=== PATIENT | male | born 1990 | race Hispanic/Latino ===

== ENCOUNTER 2018-04-16 23:24 | Emergency (ER) | payer OTHER, MEDICAID, SELFPAY ==
[2018-04-16 23:25] VITALS: BP 143/84; PULSE 72; RESP 14; TEMP 37.2; O2SAT 100; BMI 29.0
[2018-04-17 00:17] LABS: Bacteria 0 SEEN /hpf (None Seen); Red Blood Cells-Urine 0 SEEN /hpf (0-5); White Blood Cells 0 SEEN /hpf (0-5)
--- NOTE | 2018-04-17 00:21 | CT_ITS ---
STUDY: CT ABDOMEN AND PELVIS WITHOUT CONTRAST REASON FOR EXAM: Male, 27 years old. Abdominal pain. RADIATION DOSAGE (If Supplied By Facility): CTDIvol = ( 8.75 ) mGy, DLP = ( 469.93 ) mGycm TECHNIQUE: Transaxial images were obtained from the dome of the diaphragm to the symphysis pubis without oral contrast, and without intravenous contrast. Sagittal and coronal images were reconstructed. Individualized dose optimization techniques were used for this CT. COMPARISON: None. FINDINGS: The visualized lung bases are unremarkable. The visualized portions of the heart are within normal limits. Normal liver. Normal gallbladder and extrahepatic biliary system. Normal spleen. Normal pancreas. Normal bilateral adrenal glands. Normal right kidney. Normal left kidney. Normal visualized stomach. Normal small intestine. There is fecal retention. There is mild diverticulosis of the sigmoid colon. There is focal stranding and thickening of the sigmoid colon consistent with mild diverticulitis or colitis. There is no evidence of drainable abscess. There is non-visualization of the appendix. Normal abdominal aorta. Normal inferior vena cava. Normal retroperitoneum. Normal urinary bladder. Normal abdominal wall. Normal osseous structures. CT/Abdomen/Pelvis without Cont IMPRESSION: Small focal area of thickening and mild stranding in the sigmoid colon consistent with mild acute diverticulitis or colitis. No drainable abscess is seen. Otherwise no demonstrated acute process. The appendix is not definitely identified. Electronically Signed: Scar Swanson MD at 1:03 EDT Tel , Service support ,
[2018-04-17] MEDS: Morphine 4 MG/ML Syringe IV (00:27)
[2018-04-17] MEDS: 0.9% Normal Saline 1,000 ML 1000 ML IV (00:27)
[2018-04-17] MEDS: Ondansetron 4 MG/2 ML Vial IV (00:28)
[2018-04-17 00:29] LABS: Absolute Lymphocyte Count 0.92 X10^3/ul (0.83-4.51); Absolute Neutrophil Count 13.8 X10^3/uL (2.0-7.7); Basophil# 0.02 X10^3/uL; Basophil% 0.1 % (0-1); Eosinophil# 0.03 X10^3/uL; Eosinophils% 0.2 % (0-5); Hematocrit 42.9 % (40-54); Hemoglobin 14.8 g/dl (13.0-16.5); Lymphocyte # 0.92 X10^3/ul (4.0); Lymphocyte % 5.8 % (19-41); Mean Corp Hgb Conc 34.5 g/gl (32-36); Mean Corpuscular Hgb 28.8 pg (27.0-32.0); Mean Corpuscular Volume 83.5 fL (80-94); Mean Platelet Vol. 10.2 fl (6.2-12.0); Monocyte# 0.94 X10^3/uL; Neutrophil # 13.81 X10^3/uL (2.7-7.7); Neutrophil % 87.7 % (47-70); Platelet Count 282 K/mm3 (150-450); RBC Distribution Width CV 13.2 % (11.6-14.6); RBC Distribution Width SD 40.1 fl (35.1-43.9); Red Blood Count 5.14 M/mm3 (4.6-6.2); White Blood Count 15.8 K/mm3 (4.4-11.0)
[2018-04-17 00:34] LABS: POSITIVE COUNT NO; POSITIVE DIFFERENTIAL NO; POSITIVE MORPHOLOGY NO
[2018-04-17 00:40] LABS: Color, Urine Yellow (Yellow); Mucous, Urine 3+ /hpf (<or=2+); Squamous Epithelial Cells - UA 0-5 SEEN /hpf (0-5); Urine Clarity Clear (Clear)
[2018-04-17 00:41] LABS: Glucose, Dipstick NEGATIVE (Normal); Ketone-Dipstick 5 mg/dl (Negative); Leukocyte Esterase-Dipstick 25 /ul (Negative); Nitrite-Dipstick Negative (Negative); Occult Blood-Urine Negative /ul (Negative); Protein-Dipstick 15 mg/dl (Negative); Specific Gravity, Urine 1.015 (1.002-1.030); Urine Bilirubin Dipstick Negative (Negative); Urine Urobilinogen Normal (Normal)
[2018-04-17 01:03] LABS: AST(SGOT) 25 U/L (15-37); Alanine Aminotransfer ALT/SGPT 49 U/L (16-61); Albumin, Serum 4.3 g/dL (3.2-5.0); Alkaline Phosphatase 92 U/L (45-117); Anion Gap 5 (5-15); BUN 15 mg/dL (7-18); BUN/Creat Ratio 13.8 RATIO (10-20); Calcium,Total 9.4 mg/dL (8.5-10.1); Chloride 102 mmol/L (98-107); Creatinine, Serum 1.09 mg/dL (0.70-1.30); EST Glomerular Filtration Rate 86 mL/min (>60); Est Glom Filt Rate - Afr Amer 105 mL/min (>60); Globulin 4.1 g/dL (2.2-4.2); Glucose 108 mg/dL (74-106); Lipase 91 U/L (73-393); Potassium 4.1 mmol/L (3.5-5.1); Protein, Total 8.4 g/dL (6.4-8.2); Sodium Level 136 mmol/L (136-145)
--- NOTE | 2018-04-17 01:36 | ED.DCSUM_ITS ---
- ER Visit Summary Date of Service: 04/17/18 Chief Complaint: Abdominal pain History of Present Illness: The patient is a 27 M who presents with abdominal pain. It is been present for about 5 hours. He describes it as a stabbing lower abdominal pain he also has some pain radiating through to his back. Currently he rates this as 8 out of 10. He has had about 3 episodes of nonbloody nonbilious emesis. He reports urinary urgency. He notes that the pain radiates into his genitals. He does have a history of prior similar symptoms about 1 year ago and was diagnosed with colitis and improved with antibiotics. No fevers. No diarrhea. Physical Examination: Afebrile vitals are essentially normal Moist mucous membranes Heart regular rate and rhythm Lungs are clear Abdomen soft nondistended he has bilateral lower abdominal tenderness without guarding without rebound Test Results: CBC notable for white blood cell count 15.8. BMP normal. Hepatic function lipase normal. UA notable for [address] leukocyte [address] otherwise normal. CT the abdomen and pelvis shows wall thickening of the sigmoid colon consistent with diverticulitis or colitis. Emergency Department Course and Treatment: She was treated with IV fluids morphine Zofran here. On reevaluation he is resting comfortably. Given that this is a similar episode one year ago I suspect the patient has underlying diverticulosis with diverticulitis. He was advised that after treatment he will likely need a colonoscopy for further evaluation. He does note that he has had an EGD in [place] but never had a lower endoscopy. He is resting comfortably on reevaluation. I do believe he is a good candidate for outpatient treatment. He has had no vomiting here and his pain is controlled. He will be discharged with Cipro and Flagyl. He was asked if he would need any analgesics at home and he states he will just take Tylenol for pain. He does have an appointment next month to establish a primary care physician with the [facility]. He was advised to keep the scheduled follow-up. He understands to return for new or worsening symptoms. He is agreeable to plan was discharged home in good condition. Treatment Plan: [] Disposition: Discharge Impression: Sigmoid diverticulitis This note was generated with [employer] dictation software. It may contain incorrect words, spelling, and punctuation that were not noted in review of the chart prior to signing ED Disposition - Plan for ED Patient: Chief Complaint: Abd Pain Referrals: Care Physician,No Primary [Primary Care Provider] -
--- NOTE | 2018-04-17 01:39 | ED.DEP ---
ED Disposition - Plan for ED Patient: Chief Complaint: Abd Pain Instructions: ED Diverticulitis Prescriptions: Metronidazole [Flagyl] 500 mg PO Q8H #21 tab Ciprofloxacin [Cipro] 500 mg PO BID #14 tab Referrals: Care Physician,No Primary [Primary Care Provider] -
[2018-04-17 01:50] VITALS: BP 140/83; PULSE 95; RESP 18; O2SAT 98
== END 2018-04-17 01:52 | disposition home or self-care (01) ==
LOC: ED 04-17 00:36
PROVIDERS: Emergency Provider Emergency Medicine
DX: K57.32 Diverticulitis of large intestine without perforation or abscess without bleeding (principal)
CPT/HCPCS: 74176; 80048; 80076; 81001; 83690; 85025; 96361; 96374; 96375; 99285; J7030; A4216; J2405

== ENCOUNTER 2018-09-17 10:48 | Emergency (ER) | payer OTHER, SELFPAY ==
[2018-09-17 10:52] VITALS: BP 143/76; PULSE 105; RESP 17; TEMP 37.1; O2SAT 98; BMI 27.6
--- NOTE | 2018-09-17 11:05 | CT_ITS ---
STUDY: CT ABDOMEN AND PELVIS WITH CONTRAST REASON FOR EXAM: Male, 28 years old. Abdominal pain. History of diverticulitis RADIATION DOSAGE (If Supplied By Facility): CTDIvol = ( 9.95 ) mGy, DLP = ( 727.07 ) mGycm TECHNIQUE: Transaxial images were obtained from the dome of the diaphragm to the symphysis pubis without oral contrast. 100CC ml of Isovue 300 contrast was administered. Sagittal and coronal images were reconstructed. Individualized dose optimization techniques were used for this CT. COMPARISON: 04/17/2018 FINDINGS: The visualized lung bases are unremarkable. The visualized portions of the heart are within normal limits. Normal liver. Normal gallbladder and extrahepatic biliary system. Normal spleen. Normal pancreas. Normal bilateral adrenal glands. Normal right kidney. Normal left kidney. Normal visualized stomach. Normal small intestine. Acute uncomplicated sigmoid diverticulitis with wall thickening and pericolonic fat stranding. The appendix is visualized and appears normal. Normal abdominal aorta. Normal inferior vena cava. Normal retroperitoneum. Normal urinary bladder. Normal visualized prostate gland. Normal abdominal wall. Normal osseous structures. CT/Abdomen/Pelvis W IV Cont ONLY IMPRESSION: Acute uncomplicated sigmoid diverticulitis Electronically Signed: Leonardo Olvera DO at 14:11 EST Tel , Service support ,
--- NOTE | 2018-09-17 11:08 | ED.DCSUM_ITS ---
- ER Visit Summary Date of Service: 09/17/18 Chief Complaint: Abdominal pain History of Present Illness: The patient is a 28 M with abdominal pain. Pain is in his left lower quadrant and does not radiate. He has had some diarrhea over the past 3-4 days. He had similar symptoms in the past with diverticulitis. He never had perforation, abscess, or surgery. Never had a colonoscopy but has one scheduled. Physical Examination: Afebrile and vital signs unremarkable. No acute distress. Alert and oriented. Heart regular. Lungs clear. Abdomen tender in the left lower quadrant. No guarding or rebound. Skin appears normal. Test Results: Labs, urine, CT pending. Emergency Department Course and Treatment: Patient declined pain medicine. He was treated with IV fluids while awaiting results. White count 11.5. Otherwise labs unremarkable. CT shows findings concerning for diverticulitis without any complication. Based on his exam, symptoms, findings, I believe he is appropriate for outpatient follow-up. He was treated with Cipro and Flagyl. Follow-up with his outpatient doctor. Treatment Plan: As above Disposition: Discharge Impression: Acute diverticulitis This note was generated with [employer] dictation software. It may contain incorrect words, spelling, and punctuation that were not noted in review of the chart prior to signing ED Disposition - Plan for ED Patient: Chief Complaint: Abd Pain Referrals: Abran Salas MD [Primary Care Provider] -
[2018-09-17] MEDS: 0.9% Normal Saline 1,000 ML 1000 ML IV (11:25)
[2018-09-17 11:28] VITALS: PULSE 105; RESP 17; TEMP 37.1; O2SAT 98
[2018-09-17 11:34] LABS: Absolute Lymphocyte Count 1.06 X10^3/ul (0.83-4.51); Absolute Neutrophil Count 9.2 X10^3/uL (2.0-7.7); Basophil# 0.02 X10^3/uL; Basophil% 0.2 % (0-1); Eosinophil# 0.06 X10^3/uL; Eosinophils% 0.5 % (0-5); Hematocrit 43.5 % (40-54); Hemoglobin 14.8 g/dl (13.0-16.5); Lymphocyte # 1.06 X10^3/ul (4.0); Lymphocyte % 9.2 % (19-41); Mean Corpuscular Hgb 28.2 pg (27.0-32.0); Mean Corpuscular Volume 82.9 fL (80-94); Mean Platelet Vol. 9.7 fl (6.2-12.0); Monocyte# 1.12 X10^3/uL; Monocyte% 9.7 % (0-10); Neutrophil # 9.22 X10^3/uL (2.7-7.7); Neutrophil % 80.1 % (47-70); Platelet Count 310 K/mm3 (150-450); RBC Distribution Width CV 13.1 % (11.6-14.6); RBC Distribution Width SD 39.4 fl (35.1-43.9); Red Blood Count 5.25 M/mm3 (4.6-6.2); White Blood Count 11.5 K/mm3 (4.4-11.0)
[2018-09-17 11:37] LABS: POSITIVE COUNT NO; POSITIVE DIFFERENTIAL NO; POSITIVE MORPHOLOGY NO
[2018-09-17 12:35] LABS: Bacteria 0 SEEN /hpf (None Seen); Mucous, Urine 0 SEEN /hpf (<or=2+); Red Blood Cells-Urine 0 SEEN /hpf (0-5); Squamous Epithelial Cells - UA 0 SEEN /hpf (0-5); White Blood Cells 0 SEEN /hpf (0-5)
[2018-09-17 12:38] LABS: Color, Urine Yellow (Yellow); Glucose, Dipstick Normal (Normal); Ketone-Dipstick Negative (Negative); Leukocyte Esterase-Dipstick Negative /ul (Negative); Nitrite-Dipstick Negative (Negative); Occult Blood-Urine Negative /ul (Negative); Protein-Dipstick Negative (Negative); Specific Gravity, Urine 1.015 (1.002-1.030); Urine Bilirubin Dipstick Negative (Negative); Urine Clarity Clear (Clear); Urine Urobilinogen Normal (Normal)
[2018-09-17 13:08] LABS: ALB/GLOB Ratio 0.8 RATIO (0.9-2.4); AST(SGOT) 26 U/L (15-37); Alanine Aminotransfer ALT/SGPT 38 U/L (16-61); Albumin, Serum 3.6 g/dL (3.2-5.0); Alkaline Phosphatase 111 U/L (45-117); Anion Gap 8 (5-15); BUN 10 mg/dL (7-18); Calcium,Total 8.9 mg/dL (8.5-10.1); Chloride 103 mmol/L (98-107); Creatinine, Serum 1.11 mg/dL (0.70-1.30); EST Glomerular Filtration Rate 84 mL/min (>60); Est Glom Filt Rate - Afr Amer 102 mL/min (>60); Estimated Creatinine Clearance 96.71 ml/min; Globulin 4.5 g/dL (2.2-4.2); Glucose 114 mg/dL (74-106); Lipase 159 U/L (73-393); Potassium 4.5 mmol/L (3.5-5.1); Protein, Total 8.1 g/dL (6.4-8.2); Sodium Level 137 mmol/L (136-145)
[2018-09-17 14:25] VITALS: BP 133/82; PULSE 91; PULSE 94; RESP 17; TEMP 37.3; O2SAT 99
--- NOTE | 2018-09-17 14:41 | ED.DEP ---
ED Disposition - Plan for ED Patient: Chief Complaint: Abd Pain Instructions: ED Diverticulitis Prescriptions: Metronidazole [Flagyl] 500 mg PO Q8H #21 tab Ciprofloxacin [Cipro] 500 mg PO BID #14 tab Referrals: Abran Salas MD [Primary Care Provider] -
[2018-09-17] MEDS: Ciprofloxacin 500 MG Tablet PO (14:47)
[2018-09-17] MEDS: metroNIDAZOLE 500 MG Tablet PO (14:47)
[2018-09-17 14:49] VITALS: BP 124/67; PULSE 76; RESP 15; O2SAT 98
--- OUTSIDE RECORDS SUMMARY | 2018-12-19 16:38 | XMS RPT_ITS ---
:1990 Author Organization OHIP Care Team Providers Name Role Phone Karthikeyan Samaniego Attending Unavailable Winston, Abran Primary Care Unavailable Winston, Abran Primary Care Unavailable Oumou, Richi Consulting Unavailable Tereletsky, Rashaad Admitting Unavailable Tereletsky, Rashaad Referring Unavailable Godwin, Stevenson Attending Unavailable Tereletsky, Rashaad Admitting Unavailable Tereletsky, Rashaad Referring Unavailable Winston, Abran Primary Care Unavailable Oumou, Richi Consulting Unavailable Tereletsaren, Rashaad Attending Unavailable Tereletsky, Rashaad Consulting Unavailable Tereletsky, Rashaad Admitting Unavailable Tereletsky, Rashaad Referring Unavailable Winston, Abran Primary Care Unavailable Oumou, Richi Consulting Unavailable Godwin, Stevenson Attending Unavailable Godwin, Stevenson Consulting Unavailable Tereletsky, Rashaad Admitting Unavailable Tereletsky, Rashaad Referring Unavailable Winston, Abran Primary Care Unavailable Oumou, Richi Consulting Unavailable Godwin, Stevenson Attending Unavailable Godwin, Stevenson Consulting Unavailable Winston, Abran Primary Care Unavailable Karthikeyan Samaniego Attending Unavailable Winston, Abran Primary Care Unavailable Amelia Mcleod Attending Unavailable Dany Murphy Attending Unavailable Primay Care Physicia, No Primary Care Unavailable TISH, PAM Attending Unavailable TISH, PAM Referring Unavailable OLDERTHALIA (CORPORATE WEBMASTER) Attending Unavailable LEPOLEASH (CORPORATE WEBMASTER) Attending Unavailable OLDER, THALIA (CORPORATE WEBMASTER) Referring Unavailable WINSTON, PAM Attending Unavailable TISH, PAM Referring Unavailable MICHELLE VARELA Attending Unavailable TISH, ABRAN Ashraf Referring Unavailable MICHELLE VARELA Attending Unavailable MICHELLE VARELA Referring Unavailable TISH, ABRAN Ashraf Attending Unavailable MICHELLE VARELA Admitting Unavailable MICHELLE VARELA Attending Unavailable BI WELSH Attending Unavailable MICHELLE VARELA Referring Unavailable BI WELSH Attending Unavailable Michelle Varela Referring Unavailable Abran Winston MD Primary Care Unavailable PROBLEMS PROBLEMS DATE TYPE CONDITION / CODE ATTENDING STATUS SOURCE 10/22/2018 Admitting Unknown / Marquis WELSH General diagnosis UNK(Unknown) [facility] Repository 10/14/2018 Unknown K57.32 - Amelia Mcleod Active [place] Diverticulitis of [facility] without perforation Repository or abscess without bleeding / K57.32(ICD-10) 10/07/2018 Active Unspecified MICHELLE VARELA Active [place] abdominal pain / [facility] Other R10.9(ICD-10) [place] Repository 10/07/2018 Active Abnormal findings on MICHELLE VARELA Active [place] diagnostic imaging [facility] Other of other abdominal [place] regions, including Repository retroperitoneum / R93.5(ICD-10) 09/25/2018 Active Diverticulitis of NA Active [place] large intestine [facility] without perforation [place] or abscess without Repository bleeding / K57.32(ICD-10) 05/14/2018 Active Encounter for NA Active [place] general adult [facility] medical examination [place] without abnormal Repository findings / Z00.00(ICD-10) 07/08/2018 Unknown R10.9 - Unspecified Jeffrey, Active [place] abdominal pain / [facility] R10.9(ICD-10) Hospital Repository PROCEDURES PROCEDURES No Procedure Records FoundRESULTS RESULTS PROGRESS Observed: 10/22/2018 Status: COMPLETED Source: [place] 11:17 AM CLINIC OTHER CAMPUS REPOSITORY HNO ID: [id number] Author: Bi Welsh Service: (none) Author Type: Physician Type: Progress Notes Filed: 10/22/2018 12:16 PM Note Text: Bi Welsh M.D. Colon AND Rectal Surgery [address] [facility], [address] [place] [id number] SUBJECTIVE Shon Garner is a 28 year old Unavailable male who presents with recurrent sigmoid diverticulitis HPI The patient is a pleasant 28-year-old male who has had diverticulitis 3 times in the last 3 years. His first episode was in August 2016, with a CT scan in our system which shows inflammation of the sigmoid colon. At this time he was treated with antibiotics and improved. He started have symptoms again 2 months ago and was treated with Cipro and Flagyl for about a week, improving at that time but then starting again with symptoms several weeks later which have been persistent for about 30 days. He's been on Cipro Flagyl continuously for this 30 days. He does take MiraLAX which helps keep his bowel movements generally pretty soft, but he has recurrent left lower quadrant cramping pain prior to having bowel movements. He denies pneumaturia but says that his urine is on the darker side He had a colonoscopy with Dr. Varela 10/07/18 which showed inflammation of the sigmoid colon with biopsy of that area showing inflammation and no sign of malignancy. He sought surgical consultation with another surgeon and was suture who told him that ideally they would wait about 2 months prior to surgery to common inflammation. The patient is concerned that he will be able to wait that long as his symptoms were very persistent for the last 30 days although in the last 2 days he has had a slight improvement with less pain. Review of Systems Constitutional: Positive for weight loss (30 lbs in 1 month). Negative for chills and fever. HENT: Negative for congestion, hearing loss and sore throat. Eyes: Negative for blurred vision. Respiratory: Negative for cough, shortness of breath and wheezing. Cardiovascular: Negative for chest pain and palpitations. Gastrointestinal: Positive for abdominal pain. Negative for blood in stool, constipation, diarrhea, heartburn, melena, nausea and vomiting. Genitourinary: Positive for dysuria (little pain in bladder). Negative for frequency and urgency. Musculoskeletal: Negative for back pain, joint pain and neck pain. Skin: Negative for itching and rash. Neurological: Negative for tingling and headaches. Endo/Heme/Allergies: Negative for environmental allergies. Does not bruise/bleed easily. Psychiatric/Behavioral: Negative for depression. The patient is nervous/anxious. PAST MEDICAL HISTORY Diagnosis Date - Chronic sinusitis 1999 - Colitis, acute 08/30/2016 - Diverticulitis of sigmoid colon 04/17/2018 - Gastritis 2007 - Hiatal hernia 2007 PAST SURGICAL HISTORY Procedure Laterality Date - COLONOSCOP W/ OR W/O [facility] SPEC 10/07/2018 Colonoscopy - EGD 2007 [place] Social History Marital status: Single Spouse name: Years of education: Number of children: 1 Occupational History Occupation Employer Comment community nurse Social History Main Topics Smoking status: Never Smoker Smokeless tobacco: Never Used Alcohol use: Yes Comment: 1 beverage per month Drug use: No Sexual activity: Yes Partners with: Female Other Topics Concern Caffeine Concern Not Asked Comment:2-3 beverages daily Social History Narrative Grew up in [place]. Graduate of [employer]. FAMILY HISTORY Problem Relation Age of Onset - Heart Father [place] @ 64 years, living - Diabetes Father - Hypertension Father - Diabetes Maternal Grandmother - Heart Maternal Grandfather d/t [place] @ 48 years - Heart Paternal Uncle - Heart Paternal Uncle - Heart Paternal Uncle - Heart disease Brother - Hyperlipidemia Brother The ROS, medical, surgical, family, and social history were reviewed by Bi Welsh MD ALLERGIES Allergen Reactions - Aspirin Swelling Eye swelling. NSAID okay. Current Outpatient Prescriptions: HYDROcodone-acetaminophen (NORCO) 5-325 mg per tablet Take 1 tablet by mouth every 6 hours as needed. COMPOUNDED PRESCRIPTION Apply 1 application to affected area as needed. Zeloit applied topically as needed. ciprofloxacin HCl (CIPRO) 500 mg tablet TWICE A DAY metroNIDAZOLE (FLAGYL) 500 mg tablet Take 1 tablet by mouth three times daily for 10 days. FOR 14 DAYS. polyethylene glycol 3350 (MIRALAX, GLYCOLAX) 17 gram/dose powder Take 17 g by mouth as needed. fluticasone (FLONASE) 50 mcg/actuation nasal spray Use 2 Sprays in each nostril once daily. Rinse mouth after use. Lactobacillus acidophilus (ACIDOPHILUS ORAL) Take 1 capsule by mouth once daily. ondansetron orally disintegrating (ZOFRAN ODT) 4 mg disintegrating tablet Take 1 tablet by mouth every 8 hours as needed for Nausea/Vomiting. (Patient not taking: Reported on 10/22/2018 ) No current facility-administered medications for this visit. OBJECTIVE BP 126/76 (BP Site: Right Arm, BP Position: Sitting, BP Cuff Size: Regular Adult) Pulse 85 Ht 172.7 cm (5' 8) Wt 74.8 kg (165 lb) BMI 25.09 kg/m? BMI 25.09 kg/(m2) Physical Exam Constitutional: He is oriented to person, place, and time and well-developed, well-nourished, and in no distress. Neck: Normal range of motion. Neck supple. No thyromegaly present. Cardiovascular: Normal rate, regular rhythm and intact distal pulses. Exam reveals no gallop and no friction rub. No murmur heard. Pulmonary/Chest: Effort normal and breath sounds normal. No respiratory distress. He has no wheezes. He has no rales. Abdominal: Soft. Bowel sounds are normal. He exhibits no distension and no mass. There is tenderness (mild suprapubic pain). There is no rebound and no guarding. Musculoskeletal: Normal range of motion. He exhibits no edema or deformity. Neurological: He is alert and oriented to person, place, and time. Gait normal. Skin: Skin is warm and dry. No rash noted. Hemoglobin (g/dL) Date Value 09/25/2018 13.8 Hematocrit (%) Date Value 09/25/2018 43.1 WBC (k/uL) Date Value 09/25/2018 18.47 Platelet Count (k/uL) Date Value 09/25/2018 472 Creatinine Date Value Ref Range Status 09/25/2018 1.03 0.73 - 1.22 mg/dL Final AST Date Value Ref Range Status 09/25/2018 30 14 - 40 U/L Final ALT Date Value Ref Range Status 09/25/2018 26 10 - 54 U/L Final Bilirubin, Total (mg/dL) Date Value 09/25/2018 0.4 WBC (k/uL) Date Value 09/25/2018 18.47 (H) RBC (m/uL) Date Value 09/25/2018 5.01 %DIG,%DBS Plan ASSESSMENT/PLAN: 1. Sigmoid diverticulitis - ICD9: 562.11, ICD10: K57.32 He's had fairly smoldering symptoms for the last 30 days and it is unclear to me if he will improve. In the level of pain and by mouth tolerance. I told him we will try to schedule him in the near future, and if the symptoms do not continue to improve we will plan operation. I do agree that ideally we would wait 6-8 weeks to allow some of this inflammation to down for a optimal surgical plan, but I don't know if he will be able to wait that long. I told him if he improves in the next couple of days we could cancel the early surgery date and set a date for around 6-8 weeks. I also informed him to try adding a protein shake 2-3 times per day for the next several days, and if his pain does not improve to continue this until the time of surgery. Regarding his antibiotics I informed him that if the pain does stop he should stop the antibiotics but the guidelines are still little murky around an endpoint while he is still having pain with the smoldering case. We discussed the risk of anastomotic leak, need for stoma, and need for ureteral stents Risks, alternatives and benefits of the planned operation were fully discussed with the patient. Risks include but are not limited to , surprise diagnosis, infection including wound infection, bleeding potentially requiring transfusion with inherent risks, enteric leak, need from stoma construction at the time of first surgical procedure or in a second operation. Also discussed cardiovascular risks, pulmonary and renal risks. The patient seems to understand and agrees to proceed. All questions answered. Informed consent obtained. pathology from his colonoscopy was reviewed and the images of his CT from 2015 were reviewed Follow up: Return for Surgery. Bi Welsh M.D. CNOV Observed: 10/22/2018 Status: COMPLETED Source: [place] 11:[address] [facility] OTHER [place] REPOSITORY Office Visit ([id number]) SHON GARNER ([id number]) 1990 [facility] Date Time Provider Department 10/22/18 11:00 AM BI WELSH AGG7 During your visit today, we recorded the following information about you: Pulse Blood pressure Weight Height 85/minute 126/76 74.8 kg 1.727 m Bi Welsh MD 10/22/2018 12:16 PM Signed Bi Welsh M.D. Colon AND Rectal Surgery [address] [facility], [address] [place] [id number] SUBJECTIVE Shon Garner is a 28 year old Unavailable male who presents with recurrent sigmoid diverticulitis HPI The patient is a pleasant 28-year-old male who has had diverticulitis 3 times in the last 3 years. His first episode was in August 2016, with a CT scan in our system which shows inflammation of the sigmoid colon. At this time he was treated with antibiotics and improved. He started have symptoms again 2 months ago and was treated with Cipro and Flagyl for about a week, improving at that time but then starting again with symptoms several weeks later which have been persistent for about 30 days. He's been on Cipro Flagyl continuously for this 30 days. He does take MiraLAX which helps keep his bowel movements generally pretty soft, but he has recurrent left lower quadrant cramping pain prior to having bowel movements. He denies pneumaturia but says that his urine is on the darker side He had a colonoscopy with Dr. Varela 10/07/18 which showed inflammation of the sigmoid colon with biopsy of that area showing inflammation and no sign of malignancy. He sought surgical consultation with another surgeon and was suture who told him that ideally they would wait about 2 months prior to surgery to common inflammation. The patient is concerned that he will be able to wait that long as his symptoms were very persistent for the last 30 days although in the last 2 days he has had a slight improvement with less pain. Review of Systems Constitutional: Positive for weight loss (30 lbs in 1 month). Negative for chills and fever. HENT: Negative for congestion, hearing loss and sore throat. Eyes: Negative for blurred vision. Respiratory: Negative for cough, shortness of breath and wheezing. Cardiovascular: Negative for chest pain and palpitations. Gastrointestinal: Positive for abdominal pain. Negative for blood in stool, constipation, diarrhea, heartburn, melena, nausea and vomiting. Genitourinary: Positive for dysuria (little pain in bladder). Negative for frequency and urgency. Musculoskeletal: Negative for back pain, joint pain and neck pain. Skin: Negative for itching and rash. Neurological: Negative for tingling and headaches. Endo/Heme/Allergies: Negative for environmental allergies. Does not bruise/bleed easily. Psychiatric/Behavioral: Negative for depression. The patient is nervous/anxious. PAST MEDICAL HISTORY Diagnosis Date - Chronic sinusitis 1999 - Colitis, acute 08/30/2016 - Diverticulitis of sigmoid colon 04/17/2018 - Gastritis 2007 - Hiatal hernia 2007 PAST SURGICAL HISTORY Procedure Laterality Date - COLONOSCOP W/ OR W/O [facility] SPEC 10/07/2018 Colonoscopy - EGD 2007 [place] Social History Marital status: Single Spouse name: Years of education: Number of children: 1 Occupational History Occupation Employer Comment community nurse Social History Main Topics Smoking status: Never Smoker Smokeless tobacco: Never Used Alcohol use: Yes Comment: 1 beverage per month Drug use: No Sexual activity: Yes Partners with: Female Other Topics Concern Caffeine Concern Not Asked Comment:2-3 beverages daily Social History Narrative Grew up in [place]. Graduate of [employer]. FAMILY HISTORY Problem Relation Age of Onset - Heart Father [place] @ 64 years, living - Diabetes Father - Hypertension Father - Diabetes Maternal Grandmother - Heart Maternal Grandfather d/t [place] @ 48 years - Heart Paternal Uncle - Heart Paternal Uncle - Heart Paternal Uncle - Heart disease Brother - Hyperlipidemia Brother The ROS, medical, surgical, family, and social history were reviewed by Bi Welsh MD ALLERGIES Allergen Reactions - Aspirin Swelling Eye swelling. NSAID okay. Current Outpatient Prescriptions: HYDROcodone-acetaminophen (NORCO) 5-325 mg per tablet Take 1 tablet by mouth every 6 hours as needed. COMPOUNDED PRESCRIPTION Apply 1 application to affected area as needed. Zeloit applied topically as needed. ciprofloxacin HCl (CIPRO) 500 mg tablet TWICE A DAY metroNIDAZOLE (FLAGYL) 500 mg tablet Take 1 tablet by mouth three times daily for 10 days. FOR 14 DAYS. polyethylene glycol 3350 (MIRALAX, GLYCOLAX) 17 gram/dose powder Take 17 g by mouth as needed. fluticasone (FLONASE) 50 mcg/actuation nasal spray Use 2 Sprays in each nostril once daily. Rinse mouth after use. Lactobacillus acidophilus (ACIDOPHILUS ORAL) Take 1 capsule by mouth once daily. ondansetron orally disintegrating (ZOFRAN ODT) 4 mg disintegrating tablet Take 1 tablet by mouth every 8 hours as needed for Nausea/Vomiting. (Patient not taking: Reported on 10/22/2018 ) No current facility-administered medications for this visit. OBJECTIVE BP 126/76 (BP Site: Right Arm, BP Position: Sitting, BP Cuff Size: Regular Adult) Pulse 85 Ht 172.7 cm (5' 8) Wt 74.8 kg (165 lb) BMI 25.09 kg/m? BMI 25.09 kg/(m2) Physical Exam Constitutional: He is oriented to person, place, and time and well-developed, well-nourished, and in no distress. Neck: Normal range of motion. Neck supple. No thyromegaly present. Cardiovascular: Normal rate, regular rhythm and intact distal pulses. Exam reveals no gallop and no friction rub. No murmur heard. Pulmonary/Chest: Effort normal and breath sounds normal. No respiratory distress. He has no wheezes. He has no rales. Abdominal: Soft. Bowel sounds are normal. He exhibits no distension and no mass. There is tenderness (mild suprapubic pain). There is no rebound and no guarding. Musculoskeletal: Normal range of motion. He exhibits no edema or deformity. Neurological: He is alert and oriented to person, place, and time. Gait normal. Skin: Skin is warm and dry. No rash noted. Hemoglobin (g/dL) Date Value 09/25/2018 13.8 Hematocrit (%) Date Value 09/25/2018 43.1 WBC (k/uL) Date Value 09/25/2018 18.47 Platelet Count (k/uL) Date Value 09/25/2018 472 Creatinine Date Value Ref Range Status 09/25/2018 1.03 0.73 - 1.22 mg/dL Final AST Date Value Ref Range Status 09/25/2018 30 14 - 40 U/L Final ALT Date Value Ref Range Status 09/25/2018 26 10 - 54 U/L Final Bilirubin, Total (mg/dL) Date Value 09/25/2018 0.4 WBC (k/uL) Date Value 09/25/2018 18.47 (H) RBC (m/uL) Date Value 09/25/2018 5.01 %DIG,%DBS Plan ASSESSMENT/PLAN: 1. Sigmoid diverticulitis - ICD9: 562.11, ICD10: K57.32 He's had fairly smoldering symptoms for the last 30 days and it is unclear to me if he will improve. In the level of pain and by mouth tolerance. I told him we will try to schedule him in the near future, and if the symptoms do not continue to improve we will plan operation. I do agree that ideally we would wait 6-8 weeks to allow some of this inflammation to down for a optimal surgical plan, but I don't know if he will be able to wait that long. I told him if he improves in the next couple of days we could cancel the early surgery date and set a date for around 6-8 weeks. I also informed him to try adding a protein shake 2-3 times per day for the next several days, and if his pain does not improve to continue this until the time of surgery. Regarding his antibiotics I informed him that if the pain does stop he should stop the antibiotics but the guidelines are still little murky around an endpoint while he is still having pain with the smoldering case. We discussed the risk of anastomotic leak, need for stoma, and need for ureteral stents Risks, alternatives and benefits of the planned operation were fully discussed with the patient. Risks include but are not limited to , surprise diagnosis, infection including wound infection, bleeding potentially requiring transfusion with inherent risks, enteric leak, need from stoma construction at the time of first surgical procedure or in a second operation. Also discussed cardiovascular risks, pulmonary and renal risks. The patient seems to understand and agrees to proceed. All questions answered. Informed consent obtained. pathology from his colonoscopy was reviewed and the images of his CT from 2015 were reviewed Follow up: Return for Surgery. Bi Welsh M.D. Bi Welsh MD 10/22/2018 12:08 PM Signed Diverticular Disease Diverticular disease consists of two conditions: diverticulosis and diverticulitis. Diverticulosis is the formation of several tiny pockets, or diverticula, in the lining of the bowel. Diverticula, which can range from pea-size to much larger, are formed by increased pressure from gas, waste, or liquid on weakened spots of the intestinal browning. Diverticula can form while straining during a bowel movement, as during constipation. They are most common in the lower portion of the large intestine (the sigmoid colon). Crosscut of colon with diverticula. Complications affect about 20 percent of people with diverticulosis. One of these complications is rectal bleeding, also called diverticular bleeding. Diverticular bleeding occurs when there is chronic (long-term) injury to the small blood vessels near the diverticula. The other complication is diverticulitis. Diverticulitis occurs when there is inflammation (swelling) and infection in one or more diverticula. This usually happens when these outpouchings become blocked with waste, allowing bacteria to build up and causing infection. Diverticulosis is very common in Western populations and occurs in 10 percent of people over age 40 and in 50 percent of people over age 60. The rate of diverticulosis increases with age, and it affects almost everyone over age 80. ? What are the symptoms of diverticulosis? Usually diverticulosis does not cause any troublesome symptoms. Some people may feel tenderness over the affected area, or abdominal cramps. How is diverticulosis diagnosed? Because most people with diverticulosis do not have any symptoms, it is usually found when the patient is having tests that are being done for an unrelated reason. How is diverticulosis treated? People who have diverticulosis without symptoms or complications do not need treatment, but it is important to adopt a high-fiber diet. Laxatives should not be used to treat diverticulosis. The patient should also avoid enemas, or use them infrequently. How can diverticulosis be prevented? Good bowel hygiene is most important to prevent diverticular disease or reduce the complications. This means: ? Having regular bowel movements and avoiding constipation and straining; ? Eating appropriate amounts of the right types of fiber; ? Drinking plenty of water; ? Exercising regularly [employer] [place] [employer] recommends 20 to 35 grams of fiber a day. Every person, regardless of whether they have diverticula, should try to consume this much fiber every day. Fiber is the part of plant foods that cannot be digested. High-fiber foods include: ? Whole grain breads, cereals, and crackers; ? Berries and other fruit; ? Vegetables, such as broccoli, cabbage, spinach, carrots, asparagus, squash, and beans; ? Brown rice; ? Bran products; ? Cooked dried peas and beans, among other foods A high-fiber diet helps prevent constipation and provides a number of other health benefits, including lower blood pressure, reduced blood cholesterol, improved blood sugar, and a reduced risk of developing certain intestinal disorders. Other ways to prevent diverticular disease include drinking eight 8-ounce glasses of water a day, watching for changes in bowel movements (from constipation to diarrhea), and getting enough rest and sleep. What are the symptoms of diverticulitis? The symptoms of diverticulitis include painful cramps or tenderness in the lower abdomen, and chills or fever. How is diverticulitis diagnosed? If you are experiencing the symptoms of diverticulitis, it is important to see your doctor for the correct diagnosis. Some symptoms of irritable bowel syndrome and stomach ulcers may be similar to those of diverticular disease. Your doctor will ask you about your medical history (such as your bowel habits, symptoms, pain, diet, and current medications) and perform a physical exam. The doctor may order one or more tests to help diagnose your condition. These tests may include X-rays, CT scanning, ultrasound testing, a sigmoidoscopy, colonoscopy, barium enema, and blood tests to look for signs of infection or to see how much bleeding there is. For people who have rapid, heavy rectal bleeding, the doctor may perform a procedure called angiography to learn where the bleeding is coming from. During this test, doctors inject the patient?s arteries with a harmless dye that will allow the doctor to view the source of the bleeding. What are the complications of diverticulitis? Serious complications can occur as a result of diverticulitis. Most come from the development of a tear or perforation (hole) of the intestinal wall. If this happens, intestinal waste material can leak out of the intestines and into the surrounding abdominal cavity, which can cause the following problems: ? Peritonitis (a painful infection of the abdominal cavity) ? Abscesses (walled off infections in the abdomen) ? Obstruction (blockages of the intestine) How is diverticulitis treated? Diverticulitis sometimes gets better without medical treatment, but in many cases the patient will need antibiotics. Sometimes the infection is so severe that the patient has to be admitted to the hospital for intravenous antibiotics and other supportive care. In rare cases, a surgeon may need to take out the affected part of the bowel. During the active stage of the infection, many experts recommended eating a low-fiber diet and drinking plenty of water. A month or so after the infection gets better, fiber should be back on the menu. Emergency treatment, including surgery, may be needed when the antibiotics do not work, and in cases of a large abscess, perforation, peritonitis, or continued rectal bleeding. If there is an abscess, the doctor may need to drain the fluid by inserting a needle into the infected area. Sometimes surgery is needed to clean the abscess and remove part of the colon. If the infection spreads into the abdominal cavity (peritonitis), surgery is needed to clean the cavity and remove the damaged part of the colon. Infection can lead to scarring of the colon, and the scar tissue may cause a partial or complete blockage. A complete blockage requires surgery, although a partial blockage does not. References: ? [employer] [place] [employer]. Diverticular Disease Accessed 10/21/2015. ? [employer] [place] [employer]. What I Need to Know about Diverticular Disease Accessed 10/21/2015. ? [employer] [place] [employer]. Diverticulosis and Diverticulitis Accessed 10/21/2015. ? Copyright 3232-1325 [facility]. All rights reserved Referring Provider: MICHELLE VARELA [[id number]] Allergies As of Date: 10/22/2018 Noted Allergy Reaction ASPIRIN 08/30/2016 7 - Swelling Comments: Eye swelling. NSAID okay. Date Reviewed: 10/22/2018 Reviewed by: Bi Welsh - Fully Assessed Reason for Visit: Consult [502] Cmt: referred fron Dr. Michelle Varela for chronic diverticulitis Primary Visit Diagnosis:Sigmoid diverticulitis [K57.32] Prescriptions as of 10/22/2018 Sig: HYDROCODONE 5 MG-ACETAMINOPHE* Take 1 tablet by mouth every * COMPOUNDED PRESCRIPTION Apply 1 application to affect* CIPROFLOXACIN 500 MG TABLET TWICE A DAY METRONIDAZOLE 500 MG TABLET Take 1 tablet by mouth three * POLYETHYLENE GLYCOL 3350 17 G* Take 17 g by mouth as needed. FLUTICASONE 50 MCG/ACTUATION * Use 2 Sprays in each nostril * ACIDOPHILUS ORAL Take 1 capsule by mouth once * ONDANSETRON 4 MG DISINTEGRATI* Take 1 tablet by mouth every * Patient not taking: Reported on 10/22/2018 Problem List As Of Date 10/22/2018 Noted Resolved Gastritis [K29.70] Hiatal hernia [K44.9] Tinnitus of both ears [H93.13] INVALID FOR* Cervicalgia [M54.2] INVALID FOR* Sigmoid diverticulitis [K57.32] INVALID FOR* Other instructions from your clinician: Diverticular Disease Diverticular disease consists of two conditions: diverticulosis and diverticulitis. Diverticulosis is the formation of several tiny pockets, or diverticula, in the lining of the bowel. Diverticula, which can range from pea-size to much larger, are formed by increased pressure from gas, waste, or liquid on weakened spots of the intestinal browning. Diverticula can form while straining during a bowel movement, as during constipation. They are most common in the lower portion of the large intestine (the sigmoid colon). Crosscut of colon with diverticula. Complications affect about 20 percent of people with diverticulosis. One of these complications is rectal bleeding, also called diverticular bleeding. Diverticular bleeding occurs when there is chronic (long-term) injury to the small blood vessels near the diverticula. The other complication is diverticulitis. Diverticulitis occurs when there is inflammation (swelling) and infection in one or more diverticula. This usually happens when these outpouchings become blocked with waste, allowing bacteria to build up and causing infection. Diverticulosis is very common in Western populations and occurs in 10 percent of people over age 40 and in 50 percent of people over age 60. The rate of diverticulosis increases with age, and it affects almost everyone over age 80. ? What are the symptoms of diverticulosis? Usually diverticulosis does not cause any troublesome symptoms. Some people may feel tenderness over the affected area, or abdominal cramps. How is diverticulosis diagnosed? Because most people with diverticulosis do not have any symptoms, it is usually found when the patient is having tests that are being done for an unrelated reason. How is diverticulosis treated? People who have diverticulosis without symptoms or complications do not need treatment, but it is important to adopt a high-fiber diet. Laxatives should not be used to treat diverticulosis. The patient should also avoid enemas, or use them infrequently. How can diverticulosis be prevented? Good bowel hygiene is most important to prevent diverticular disease or reduce the complications. This means: ? Having regular bowel movements and avoiding constipation and straining; ? Eating appropriate amounts of the right types of fiber; ? Drinking plenty of water; ? Exercising regularly [employer] [place] [employer] [place] [employer] recommends 20 to 35 grams of fiber a day. Every person, regardless of whether they have diverticula, should try to consume this much fiber every day. Fiber is the part of plant foods that cannot be digested. High-fiber foods include: ? Whole grain breads, cereals, and crackers; ? Berries and other fruit; ? Vegetables, such as broccoli, cabbage, spinach, carrots, asparagus, squash, and beans; ? Brown rice; ? Bran products; ? Cooked dried peas and beans, among other foods A high-fiber diet helps prevent constipation and provides a number of other health benefits, including lower blood pressure, reduced blood cholesterol, improved blood sugar, and a reduced risk of developing certain intestinal disorders. Other ways to prevent diverticular disease include drinking eight 8-ounce glasses of water a day, watching for changes in bowel movements (from constipation to diarrhea), and getting enough rest and sleep. What are the symptoms of diverticulitis? The symptoms of diverticulitis include painful cramps or tenderness in the lower abdomen, and chills or fever. How is diverticulitis diagnosed? If you are experiencing the symptoms of diverticulitis, it is important to see your doctor for the correct diagnosis. Some symptoms of irritable bowel syndrome and stomach ulcers may be similar to those of diverticular disease. Your doctor will ask you about your medical history (such as your bowel habits, symptoms, pain, diet, and current medications) and perform a physical exam. The doctor may order one or more tests to help diagnose your condition. These tests may include X-rays, CT scanning, ultrasound testing, a sigmoidoscopy, colonoscopy, barium enema, and blood tests to look for signs of infection or to see how much bleeding there is. For people who have rapid, heavy rectal bleeding, the doctor may perform a procedure called angiography to learn where the bleeding is coming from. During this test, doctors inject the patient?s arteries with a harmless dye that will allow the doctor to view the source of the bleeding. What are the complications of diverticulitis? Serious complications can occur as a result of diverticulitis. Most come from the development of a tear or perforation (hole) of the intestinal wall. If this happens, intestinal waste material can leak out of the intestines and into the surrounding abdominal cavity, which can cause the following problems: ? Peritonitis (a painful infection of the abdominal cavity) ? Abscesses (walled off infections in the abdomen) ? Obstruction (blockages of the intestine) How is diverticulitis treated? Diverticulitis sometimes gets better without medical treatment, but in many cases the patient will need antibiotics. Sometimes the infection is so severe that the patient has to be admitted to the hospital for intravenous antibiotics and other supportive care. In rare cases, a surgeon may need to take out the affected part of the bowel. During the active stage of the infection, many experts recommended eating a low-fiber diet and drinking plenty of water. A month or so after the infection gets better, fiber should be back on the menu. Emergency treatment, including surgery, may be needed when the antibiotics do not work, and in cases of a large abscess, perforation, peritonitis, or continued rectal bleeding. If there is an abscess, the doctor may need to drain the fluid by inserting a needle into the infected area. Sometimes surgery is needed to clean the abscess and remove part of the colon. If the infection spreads into the abdominal cavity (peritonitis), surgery is needed to clean the cavity and remove the damaged part of the colon. Infection can lead to scarring of the colon, and the scar tissue may cause a partial or complete blockage. A complete blockage requires surgery, although a partial blockage does not. References: ? [employer] [place] [employer]. Diverticular Disease Accessed 10/21/2015. ? [employer] [place] [employer]. What I Need to Know about Diverticular Disease Accessed 10/21/2015. ? [employer] [place] [employer]. Diverticulosis and Diverticulitis Accessed 10/21/2015. ? Copyright 5926-0613 [facility]. All rights reserved Disposition: Return for Surgery. Follow-up and Disposition History Recorded Letter Text Encounter Status:Closed by BI WELSH MD on 10/22/18 PROGRESS Observed: 10/22/2018 Status: COMPLETED Source: [place] 8:[address] [facility] HNO ID: [id number] Author: Abran Winston Service: (none) Author Type: Physician Type: Progress Notes Filed: 10/22/2018 8:58 AM Note Text: This note was created using [employer]. Subjective Shon Garner continued with lower abdominal pains even on antibiotics. He went to the ER October [address] scan showed persistent sigmoid diverticulitis. His white blood cell count came down. He saw Dr. Varela and had colonoscopy done showing mucosal inflammation of the sigmoid area. There was discussion about sigmoid colectomy but he felt he could not wait for 8 weeks. He was referred to colorectal surgery in [place] for a 2nd opinion. He had to stop working due to his lower abdominal discomfort. He was applying an herbal topical remedy with relief of his abdominal pain. ACTIVE PROBLEM LIST Gastritis Hiatal Hernia Tinnitus of Both Ears Cervicalgia Sigmoid Diverticulitis Current Outpatient Prescriptions: HYDROcodone-acetaminophen (NORCO) 5-325 mg per tablet Take 1 tablet by mouth every 8 hours as needed. COMPOUNDED PRESCRIPTION Apply 1 application to affected area as needed. Zeloit applied topically as needed. metroNIDAZOLE (FLAGYL) 500 mg tablet Take 1 tablet by mouth three times daily for 10 days. FOR 14 DAYS. polyethylene glycol 3350 (MIRALAX, GLYCOLAX) 17 gram/dose powder Take 17 g by mouth as needed. ondansetron orally disintegrating (ZOFRAN ODT) 4 mg disintegrating tablet Take 1 tablet by mouth every 8 hours as needed for Nausea/Vomiting. fluticasone (FLONASE) 50 mcg/actuation nasal spray Use 2 Sprays in each nostril once daily. Rinse mouth after use. Lactobacillus acidophilus (ACIDOPHILUS ORAL) Take 1 capsule by mouth once daily. No current facility-administered medications for this visit. Review of Systems Constitutional: Positive for fatigue. Negative for fever. Gastrointestinal: Positive for abdominal pain and nausea. Negative for diarrhea and vomiting. Objective BP 118/74 (BP Site: Right Arm, BP Position: Sitting, BP Cuff Size: Regular Adult) Pulse 68 Temp 37.2 ?C (99 ?F) (Temporal Artery) Resp 18 Wt 74.4 kg (164 lb) BMI 24.94 kg/m? Physical Exam Constitutional: No distress. Abdominal: Soft. He exhibits no distension. There is tenderness in the suprapubic area. There is no rebound and no guarding. Skin: He is not diaphoretic. Assessment and Plan 1. Sigmoid diverticulitis - ICD9: 562.11, ICD10: K57.32 (primary diagnosis) Continue antibiotics. See specialist as recommended. 2. Need for vaccination - ICD9: V05.9, ICD10: Z23 - ADMIN OF INFLUENZA VACCINE - INFLUENZA VACCINE QUADRIVALENT AGE 3 YRS PLUS + IM Abran Winston MD CNOV Observed: 10/22/2018 Status: COMPLETED Source: [place] 8:20 AM [facility] REPOSITORY Office Visit (INTMWS) SHON GARNER ([id number]) 1990 M [facility] Date Time Provider Department 10/22/18 8:20 AM ABRAN WINSTON INTMWS During your visit today, we recorded the following information about you: Temperature Pulse Respiration Blood pressure 99 degrees 68/minute 18/minute 118/74 Weight 74.4 kg Abran Winston MD 10/22/2018 8:58 AM Signed This note was created using [employer]. Subjective Shon Garner continued with lower abdominal pains even on antibiotics. He went to the ER October [address] scan showed persistent sigmoid diverticulitis. His white blood cell count came down. He saw Dr. Varela and had colonoscopy done showing mucosal inflammation of the sigmoid area. There was discussion about sigmoid colectomy but he felt he could not wait for 8 weeks. He was referred to colorectal surgery in [place] for a 2nd opinion. He had to stop working due to his lower abdominal discomfort. He was applying an herbal topical remedy with relief of his abdominal pain. ACTIVE PROBLEM LIST Gastritis Hiatal Hernia Tinnitus of Both Ears Cervicalgia Sigmoid Diverticulitis Current Outpatient Prescriptions: HYDROcodone-acetaminophen (NORCO) 5-325 mg per tablet Take 1 tablet by mouth every 8 hours as needed. COMPOUNDED PRESCRIPTION Apply 1 application to affected area as needed. Zeloit applied topically as needed. metroNIDAZOLE (FLAGYL) 500 mg tablet Take 1 tablet by mouth three times daily for 10 days. FOR 14 DAYS. polyethylene glycol 3350 (MIRALAX, GLYCOLAX) 17 gram/dose powder Take 17 g by mouth as needed. ondansetron orally disintegrating (ZOFRAN ODT) 4 mg disintegrating tablet Take 1 tablet by mouth every 8 hours as needed for Nausea/Vomiting. fluticasone (FLONASE) 50 mcg/actuation nasal spray Use 2 Sprays in each nostril once daily. Rinse mouth after use. Lactobacillus acidophilus (ACIDOPHILUS ORAL) Take 1 capsule by mouth once daily. No current facility-administered medications for this visit. Review of Systems Constitutional: Positive for fatigue. Negative for fever. Gastrointestinal: Positive for abdominal pain and nausea. Negative for diarrhea and vomiting. Objective BP 118/74 (BP Site: Right Arm, BP Position: Sitting, BP Cuff Size: Regular Adult) Pulse 68 Temp 37.2 ?C (99 ?F) (Temporal Artery) Resp 18 Wt 74.4 kg (164 lb) BMI 24.94 kg/m? Physical Exam Constitutional: No distress. Abdominal: Soft. He exhibits no distension. There is tenderness in the suprapubic area. There is no rebound and no guarding. Skin: He is not diaphoretic. Assessment and Plan 1. Sigmoid diverticulitis - ICD9: 562.11, ICD10: K57.32 (primary diagnosis) Continue antibiotics. See specialist as recommended. 2. Need for vaccination - ICD9: V05.9, ICD10: Z23 - ADMIN OF INFLUENZA VACCINE - INFLUENZA VACCINE QUADRIVALENT AGE 3 YRS PLUS + IM MD Mckenna Contreras LPN 10/22/2018 8:49 AM Signed Influenza Vaccine Documentation: ? Patient is identified by name and date of : Yes ? Patient is older than 6 months of age: Yes ? Patient denies a severe allergy to any vaccine component or to a previous dose of influenza vaccine: Yes FOR EGG ALLERGY CONCERNS, REFER TO PROVIDER. ? Denies allergy to gelatin, formaldehyde, thimerosol :Yes ? Patient is afebrile and not moderately or severely ill: Yes ? Does the patient have a history of Guillain ?Rose Syndrome (a severe paralytic illness): No ? Denies bone marrow transplant prior 6 months or solid organ transplant prior 3 months: Yes ? Denies a history of fainting after a prior injection or medical procedure? Yes If patient has fainted in the past, the CDC recommends sitting or lying down for 15 minutes after the vaccination. ? VIS sheet provided: Yes ? [facility] for details of immunizations administered today. If patient reports dizziness, vision changes or ringing in the ears post vaccination ? please have patient sit or lie down for 15 minutes. Referring Provider: SELF [[id number]] Allergies As of Date: 10/22/2018 Noted Allergy Reaction ASPIRIN 08/30/2016 7 - Swelling Comments: Eye swelling. NSAID okay. Date Reviewed: 10/22/2018 Reviewed by: Mckenna Puente LPN - Fully Assessed Reason for Visit: Recheck [92] Primary Visit Diagnosis:Sigmoid diverticulitis [K57.32] Other Visit Diagnosis:Need for vaccination [Z23] Order(s):ADMIN OF INFLUENZA VACCINE [G4902BPX] Order #: [id number]: 1 INFLUENZA VACCINE QUADRIVALENT AGE 3 YRS PLUS + IM [73503YTP] Order #: [id number] Prescriptions as of 10/22/2018 Sig: HYDROCODONE 5 MG-ACETAMINOPHE* Take 1 tablet by mouth every * COMPOUNDED PRESCRIPTION Apply 1 application to affect* METRONIDAZOLE 500 MG TABLET Take 1 tablet by mouth three * POLYETHYLENE GLYCOL 3350 17 G* Take 17 g by mouth as needed. ONDANSETRON 4 MG DISINTEGRATI* Take 1 tablet by mouth every * FLUTICASONE 50 MCG/ACTUATION * Use 2 Sprays in each nostril * ACIDOPHILUS ORAL Take 1 capsule by mouth once * Medication notes this encounter FLUTICASONE 50 MCG/ACTUATION NASAL SPRAY,SUSPENSION >> Mckenna Puente LPN 10/22/2018 8:21 AM >> MCKENNA PUENTE LPN SatOct 22, 2018 8:21 AM Patient using PRN Problem List As Of Date 10/22/2018 Noted Resolved Gastritis [K29.70] Hiatal hernia [K44.9] Tinnitus of both ears [H93.13] INVALID FOR* Cervicalgia [M54.2] INVALID FOR* Sigmoid diverticulitis [K57.32] INVALID FOR* Visit Notes: >> Mckenna Puente LPN SatOct 22, 2018 8:48 AM Status: Signed Influenza Vaccine Documentation: ? Patient is identified by name and date of : Yes ? Patient is older than 6 months of age: Yes ? Patient denies a severe allergy to any vaccine component or to a previous dose of influenza vaccine: Yes FOR EGG ALLERGY CONCERNS, REFER TO PROVIDER. ? Denies allergy to gelatin, formaldehyde, thimerosol :Yes ? Patient is afebrile and not moderately or severely ill: Yes ? Does the patient have a history of Guillain ?Rose Syndrome (a severe paralytic illness): No ? Denies bone marrow transplant prior 6 months or solid organ transplant prior 3 months: Yes ? Denies a history of fainting after a prior injection or medical procedure? Yes If patient has fainted in the past, the CDC recommends sitting or lying down for 15 minutes after the vaccination. ? VIS sheet provided: Yes ? See Immunization Form in [employer] for details of immunizations administered today. If patient reports dizziness, vision changes or ringing in the ears post vaccination ? please have patient sit or lie down for 15 minutes. Medications Discontinued During This Encounter dicyclomine (BENTYL) 20 mg tablet 30 t* 2 08/11/2018 10/22/2018 Route: ORAL Sig: Take 1 tablet by mouth three times daily as needed (abdominal pain). Patient not taking: Reported on 10/22/2018 Disc: Reason for discontinue is not on file. Disposition: Return if symptoms worsen or fail to improve. Follow-up and Disposition History Recorded Encounter Status:Closed by ABRAN WINSTON MD on 10/22/18 EMERGENCY DEPARTMENT Observed: 10/14/2018 Status: F Source: SERGE SUMMARY 5:58 PM [facility] Medical Records Department [address] [place] [address] Emergency Department Summary 10/14/18 1044 MR#: [id number] Acct: [id number] Name: SHON GARNER Rep #: [id number] : 1990 28 From: Amelia Mcleod MD PCP: Abran Winston MD Status: DEP ER - ER Visit Summary Date of Service: 10/14/18 Chief Complaint: Abdominal pain History of Present Illness: The patient is a 28 M who presents for continued abdominal pain. Patient has diagnosed diverticulitis, had a colonoscopy last week to confirm it and that was not consistent with inflammatory bowel disease.. He is scheduled for a partial colectomy on October 30. Patient states since yesterday he has been having right lower quadrant pain that is stabbing and cramping. This is different from his normal pain. Pain is worse with movement and improved with remaining still. He has associated nausea and vomiting. Denies diarrhea or blood in his stool. Patient has not had a fever at home. He states he is not taking anything for pain or nausea at home and is not been prescribed anything. He is on Cipro and Flagyl currently. Physical Examination: Vital signs: afebrile, hemodynamically stable, no hypoxia on room air General: well nourished, well developed, in no distress Skin: warm, dry, no rash, no pallor HEENT: normocephalic and atraumatic; PERRL, EOMI, moist mucous membranes Cardiovascular: Tachycardic rate and rhythm without murmurs, no peripheral edema, 2+ pulses all distal extremities Respiratory: No increased work of breathing, lungs are clear to auscultation bilaterally, no rales, rhonchi or wheezing Abdominal: Abdomen is soft, tender in the right lower quadrant with mild rebound tenderness, with normoactive bowel sounds, no guarding, no masses MSK: Moves all extremities, no deformities, normal strength Neuro: Awake and alert, oriented 4. No facial droop, sensation and motor function intact and symmetric Test Results: Abnormal Lab Results WBC 13.3 H RBC 4.91 Hgb 13.4 Hct 40.6 MCV 82.7 Clinical Impression(s) from Imaging Studies Abdomen/Pelvis CT 10/14/18 10:44 Diverticulitis with no significant changes since prior study Medications Given Discontinued Medications Sodium Chloride () 1,000 mls @ 1,000 mls/hr IV .Q1H ONE Stop: 10/14/18 11:42 Last Admin: 10/14/18 10:52 Dose: 1,000 mls/hr Morphine Sulfate () 4 mg IV X1 ONE Stop: 10/14/18 10:44 Last Admin: 10/14/18 10:52 Dose: 4 mg Ondansetron HCl (Zofran) 4 mg IV X1 ONE Stop: 10/14/18 10:44 Last Admin: 10/14/18 10:52 Dose: 4 mg Emergency Department Course and Treatment: Patient presents with known diverticulitis, and he has had several visits in this emergency department, with surgery and with his primary care doctor for the same complaints. Today he is complaining of worsening pain that is different from his typical pain. He is tachycardic on evaluation and has right lower quadrant tenderness with mild rebound. He has already had 3 CT abdomen and pelvis in the last 6 months, however given his new complaints and abdominal exam, an abdominal CT will be repeated evaluate for any abscess, perforation or alternative cause. Patient received morphine and Zofran for symptoms and IV fluids for hydration. Labs were remarkable for leukocytosis of 13.3, which is consistent with prior labs in improved from his visit a few times ago. Otherwise no lab abnormalities. CT of the abdomen and pelvis showed sigmoid diverticulitis without perforation or abscess. It was consistent with patient's prior imaging. On reevaluation patient was resting comfortably and had improvement in his pain. We discussed that he is going to have pain until he gets the surgery for his ongoing diverticulitis. He was given a prescription for Zofran for nausea at home and Spicer for severe pain. Patient was encouraged to use rorp-zvm-[id number] pain medication for mild to moderate pain, as he has not been taking pain medication at home. Patient was strongly encouraged to keep his surgery appointment on October 30. Patient discharged home well-appearing, afebrile, normotensive and ambulating without difficulty. Treatment Plan: [] Disposition: [] Impression: Sigmoid diverticulitis This note was generated with [employer] dictation software. It may contain incorrect words, spelling, and punctuation that were not noted in review of the chart prior to signing ED Disposition - Plan for ED Patient: Disposition: Home or Assisted Living Chief Complaint: Abd Pain Instructions: ED Diverticulitis Prescriptions: Hydrocodone Bitart/Apap 5-325 [Spicer 5MG-325MG] 1 tab PO Q6H PRN PRN 3 Days #15 tab PRN Reason: Pain Ondansetron [Zofran Odt] 4 mg PO Q8H PRN PRN #20 tab PRN Reason: Nausea Referrals: Richi Coello MD [STAFF PHYSICIAN] - Keep Vicente appointment Abran Winston MD [Primary Care Provider] - 3-5 Days if not improving Additional Instructions: Follow all the instructions you were given by your surgeon. Keep your appointment for surgery on October 30. Continue the antibiotics as you have been prescribed. You may use the Zofran for nausea and Spicer for severe pain. Otherwise use rlls-avy-gyabmhi pain medications for mild to moderate pain as you have been instructed by your doctors. If you have any worsening of your condition or any new concerning symptoms, please return immediately to the emergency department for another evaluation. What to do if you have Problems For any increased pain, shortness of breath, bleeding, nausea or vomiting, chest pain, or any unexpected problems, contact your Primary Care Provider. Call [facility] ([phone]) or report to the closest Emergency Room. Call 911 if necessary. 10/14/18 1758 <Electronically signed by Amelia Mcleod MD> Date Amelia Mcleod MD [facility] Signature (If Indicated): Date CC: Abran Winston MD DISCHARGE INSTRUCTION Observed: 10/14/2018 Status: F Source: [place] 5:32 PM [facility] [place] Medical Records Department [address] [place] [address] Discharge Instruction 10/14/18 1314 MR#: [id number] Acct: [id number] Name: SHON GARNER Rep #: [id number] : 1990 28 From: Amelia Mcleod MD PCP: Abran Winston MD Status: DEP ER ED Disposition - Plan for ED Patient: Disposition: Home or Assisted Living Chief Complaint: Abd Pain Instructions: ED Diverticulitis Prescriptions: Hydrocodone Bitart/Apap 5-325 [Spicer 5MG-325MG] 1 tab PO Q6H PRN PRN 3 Days #15 tab PRN Reason: Pain Ondansetron [Zofran Odt] 4 mg PO Q8H PRN PRN #20 tab PRN Reason: Nausea Referrals: Abran Winston MD [Primary Care Provider] - 3-5 Days if not improving Richi Coello MD [STAFF PHYSICIAN] - Keep Vicente appointment Additional Instructions: Follow all the instructions you were given by your surgeon. Keep your appointment for surgery on October 30. Continue the antibiotics as you have been prescribed. You may use the Zofran for nausea and Spicer for severe pain. Otherwise use veeh-upf-kuyfwmg pain medications for mild to moderate pain as you have been instructed by your doctors. If you have any worsening of your condition or any new concerning symptoms, please return immediately to the emergency department for another evaluation. What to do if you have Problems For any increased pain, shortness of breath, bleeding, nausea or vomiting, chest pain, or any unexpected problems, contact your Primary Care Provider. Call [facility] ([phone]) or report to the closest Emergency Room. Call 911 if necessary. 10/14/18 4976 <Electronically signed by Amelia Mcleod MD> Date Amelia Mcleod MD Cosigner Signature (If Indicated): Date CC: Abran Winston MD CBC W/DIFF, AUTOMATED Collected: 10/14/2018 Status: F Source: [place] 10:51 AM [facility] TYPE CODE TESTS RESULT OUT OF RANGE REFERENCE UNITS LAB L100.1000 4.4-11.0 K/mm3 High WBC 13.3 LAB L100.1200 4.6-6.2 M/mm3 Normal RBC 4.91 LAB L100.1300 13.0-16.5 g/dl Normal HGB 13.4 LAB L100.1400 40-54 % Normal HCT 40.6 LAB L100.1500 80-94 fL Normal MCV 82.7 LAB L100.1600 27.0-32.0 pg Normal MCH 27.3 LAB L100.1700 32-36 g/gl Normal MCHC 33.0 LAB L100.1810 11.6-14.6 % Normal RDW CV 13.5 LAB L100.1820 35.1-43.9 fl Normal RDW SD 40.1 LAB L100.1900 150-450 K/mm3 Normal PLT 412 LAB L100.2000 6.2-12.0 fl Normal MPV 9.0 LAB L100.2100 47-70 % High NEUT% 79.3 LAB L100.2200 19-41 % Low LY% 9.4 LAB L100.2300 0-10 % High MONO% 10.6 LAB L100.2400 0-5 % Normal EO% 0.3 LAB L100.2500 0-1 % Normal BASO% 0.2 LAB L100.2550 0.0-0.9 % Normal IM GRAN % 0.200 Result Comment: IG% - Immature Granulocytes (promyelocytes, myelocytes and metamyelocytes) > 1% indicates that a LEFT SHIFT is Present. LAB L100.2620 2.0-7.7 X10 3/uL High Absolute Neut 10.5 LAB L100.2720 0.83-4.51 X10 3/ul Normal Absolute Lymph 1.25 Performed By: #### L100.0100 #### [facility] [place], [address] COMPREHENSIVE METABOLIC Collected: 10/14/2018 Status: F Source: SERGE GARCIA 10:51 AM [facility] TYPE CODE TESTS RESULT OUT OF RANGE REFERENCE UNITS LAB L501.0100 74-106 mg/dL Normal GLU 106 Result Comment: Fasting Glucose result from 100 to 125 mg/dL suggests IMPAIRED HOMEOSTASIS per A.D.A. criteria. Please note revised GLUCOSE reference range effective 2017. LAB L501.1000 7-18 mg/dL Low BUN 5 LAB L501.1100 0.70-1.30 mg/dL Normal CREAT,SERUM 0.94 Result Comment: The validity of the calculated GFR AND GFRAA in patients over 70 years has not been determined. Clinical correlation is essential. LAB L501.1110 >60 mL/min Normal EST GFR 103 Result Comment: Non- GFR Calc LAB L501.1115 >60 mL/min Normal EST GFR - AA 124 Result Comment: GFR Calc LAB L501.1255 ml/min Normal Estimated CRCL 114.20 LAB L501.1300 10-20 RATIO Low BUN/CRE 5.3 LAB L501.1500 6.4-8. g/dL 2 T PROT Normal 7.9 LAB L501.1800 3.2-5. g/dL 0 ALB Normal 3.2 LAB L501.1950 2.2-4. g/dL High 2 GLOB 4.7 LAB L501.2000 0.9-2. RATIO Low 4 A/G 0.7 LAB L501.2200 8.5-10 mg/dL .1 CA Normal 8.9 LAB L501.4100 15-37 U/L Low AST 9 LAB L501.4305 45-117 U/L ALK P Normal 72 LAB L501.4405 16-61 U/L Low ALT 14 LAB L501.4600 0.20-1 mg/dL .00 T BILI Normal 0.40 LAB L501.5300 136-14 mmol/L 5 NA Normal 136 LAB L501.5600 3.5-5. mmol/L 1 K Normal 3.8 LAB L501.5900 98-107 mmol/L CL Normal 101 LAB L501.6100 21.0-3 mmol/L 2.0 CO2 Normal 28.0 LAB L501.6200 5-15 GAP Normal 7 Performed By: #### L500.4050 #### [facility] [address] [place], [address] ABDOMEN/PELVIS WITH Observed: 10/14/2018 Status: F Source: [place] CONTRAST 10:44 AM [facility] [place] [address] Abdomen/Pelvis WITH Contrast MR#: [id number] Acct: [id number] Name: SHON GARNER Rep #: [id number] : 1990 M 28 From: Hollis Cha MD PCP: Abran Winston MD Status: REG ER Study: Abdomen/Pelvis WITH Contrast Date of Exam: 10/14/18 Exam# [id number] Ordering Dr: Amelia Mcleod MD STUDY: CT ABDOMEN AND PELVIS WITH CONTRAST REASON FOR EXAM: Male, 28 years old. Acute abdominal and pelvic pain, fever RADIATION DOSAGE (If Supplied By Facility): CTDIvol = ( 9.61 ) mGy, DLP = ( 489.88 ) mGycm TECHNIQUE: Transaxial images were obtained from the dome of the diaphragm to the symphysis pubis with oral contrast. 100 ml of Isovue 300 contrast was administered. Sagittal and coronal images were reconstructed. Individualized dose optimization techniques were used for this CT. COMPARISON: 09/18/2018 FINDINGS: The visualized lung bases are unremarkable. The visualized portions of the heart are within normal limits. Normal liver. Normal gallbladder and extrahepatic biliary system. Normal spleen. Normal pancreas. Normal bilateral adrenal glands. Normal right kidney. Normal left kidney. Normal visualized stomach. Normal small intestine. The colon is fluid distended with suggests there may be an underlying diarrheal illness. There is persistent abnormal thickening of the sigmoid colon with perisigmoidal inflammation consistent with acute diverticulitis. No perforation or abscess is noted. There is little significant change in appearance of the sigmoid since the previous study. There is non-visualization of the appendix. Normal abdominal aorta. Normal inferior vena cava. Normal retroperitoneum. Normal urinary bladder. Normal abdominal wall. Normal osseous structures. CT/Abdomen/Pelvis WITH Contrast IMPRESSION: The sigmoid colon is again noted to be abnormally thickened with periappendiceal inflammation. Findings consistent with diverticulitis. No perforation, abscess, or significant interval change noted since the previous study. The remainder of the colon is fluid distended suggesting underlying diarrheal illness No suspicious solid organ abnormality Electronically Signed: Shaheen Cha MD at 12:46 EST , Service support , CC: Amelia Mcleod MD; Abran Winston MD Manager Account Management: Signed PROGRESS Observed: 10/13/2018 Status: COMPLETED Source: [place] 7:38 PM [facility] REPOSITORY HNO ID: [id number] Author: Michelle Varela Service: (none) Author Type: Physician Type: Progress Notes Filed: 10/18/2018 1:13 PM Note Text: Shon Garner 1990 REFERRING PHYSICIAN: Abran Winston MD CHIEF COMPLAINT: Diverticulitis HPI: The patient is a pleasant 28 year old male who presents with recurrent chronic diverticulitis. He states that he had an episode of diverticulitis about 2 years ago. He was given antibiotics and his symptoms of abdominal pain resolved and he recovered well. About a year and a half later, he had another episode, he was again treated with antibiotics and his symptoms abated. Most recently, more than a month ago, he developed symptoms again. He was empirically treated with oral antibiotics, but this time, he did not improve. He was eventually admitted to the hospital and placed on IV antibiotics and he noted improvement. He was discharged on oral antibiotics, but then noted return of crampy abdominal discomfort and frequent loose bowel movements. He denies outright abdominal pain, but he states that he does not feel right. He notes 5-6 loose bowel movements per day, many times with mucus, with crampy lower abdominal discomfort, also with incomplete sensation of emptying and fecal urgency. Denies fevers. Notes slight blood in stools. Also decreased appetite with 20# weight loss with this episode. Also complains of increased abdominal gas. He has tried a low fiber diet, and also use of probiotics, eating yogurt. There was concern that he may have inflammatory bowel disease because of his symptoms of diarrhea and blood in stools - he was scheduled for colonoscopy October 07, 2018. He had presented to ED at [facility] on obdulia with the above complaints. He was concerned about worsening his condition Underwent colonoscopy, 10/07/18, findings of localized inflammation of the sigmoid area - pathology - inflammatory changes. Remainder of colon normal Patient states that he is still uncomfortable, presently on cipro and flagyl PAST MEDICAL HISTORY - Chronic sinusitis 1999 - Colitis, acute 08/30/2016 - Diverticulitis of sigmoid colon 04/17/2018 - Gastritis 2007 - Hiatal hernia 2007 PAST SURGICAL HISTORY - EGD 2007 [place] Current Outpatient Prescriptions: ciprofloxacin HCl (CIPRO) 500 mg tablet Take 1 tablet by mouth twice daily for 10 days. metroNIDAZOLE (FLAGYL) 500 mg tablet Take 1 tablet by mouth three times daily for 14 days. FOR 14 DAYS. Lactobacillus acidophilus (ACIDOPHILUS ORAL) Take 1 capsule by mouth once daily. polyethylene glycol 3350 (MIRALAX, GLYCOLAX) 17 gram/dose powder Take 17 g by mouth as needed. ondansetron orally disintegrating (ZOFRAN ODT) 4 mg disintegrating tablet Take 1 tablet by mouth every 8 hours as needed for Nausea/Vomiting. dicyclomine (BENTYL) 20 mg tablet Take 1 tablet by mouth three times daily as needed (abdominal pain). fluticasone (FLONASE) 50 mcg/actuation nasal spray Use 2 Sprays in each nostril once daily. Rinse mouth after use. ALLERGIES: Aspirin PERSONAL HISTORY: Social History Marital status: Single Spouse name: Years of education: Number of children: 1 Occupational History Occupation Employer Comment community nurse Social History Main Topics Smoking status: Never Smoker Smokeless tobacco: Never Used Alcohol use: Yes Comment: 1 beverage per month Drug use: No Sexual activity: Yes Partners with: Female Other Topics Concern Caffeine Concern Not Asked Comment:2-3 beverages daily Social History Narrative Grew up in [place]. Graduate of [employer]. FAMILY HISTORY - Heart Father [place] @ 64 years, living - Diabetes Father - Hypertension Father - Diabetes Maternal Grandmother - Heart Maternal Grandfather d/t [place] @ 48 years - Heart Paternal Uncle - Heart Paternal Uncle - Heart Paternal Uncle - Heart disease Brother - Hyperlipidemia Brother REVIEW OF SYSTEMS: General: The patient denies fatigue, NOTES weight loss, denies weight gain, NOTES feeling hot, and NOTES feelings of cold. Eyes: The patient denies glaucoma, denies eye injury/surgery, does not wear glasses or contacts. Ear/Nose/Throat: The patient NOTES allergies, denies hayfever, denies ear infections, and denies bloody noses. Cardiovascular: The patient denies chest pain, denies heart disease, denies high blood pressure,denies cardiac stent, denies prior heart attack, denies irregular heart beat, denies high cholesterol, denies poor circulation, denies heart failure, other cardiac issues, denies claudication, denies cold feet, denies peripheral arterial stent. Respiratory: The patient denies tuberculosis, denies pneumonia, denies frequent cough, denies pulmonary embolism, denies shortness of breath, and denies coughing up blood. Gastrointestinal: The patient denies difficulty swallowing, NOTES acid reflux, denies ulcers, denies vomiting, denies jaundice/hepatitis, denies gallbladder problems, denies black or tarry stools, denies hemorrhoids, denies bleeding from rectum, denies diverticulitis, NOTES constipation, NOTES diarrhea, denies loss of stool control, and denies hernias. Kidney/Bladder: The patient denies kidney stones, denies urine infections, and denies bloody urine. Skin: The patient denies a history of skin cancer, denies bleeding/changing moles, and denies a history of skin rash. Neurologic: The patient denies a history of epilepsy/convulsions, denies headaches, denies head/spinal injuries, and denies stroke/TIA. Psychiatric: The patient denies psychiatric medications, denies depression, and denies voices, denies substance abuse. Endocrine: The patient denies thyroid disorders, denies diabetes, and denies hormonal problems. Hematologic: The patient denies a history of bruising, denies bleeding, and denies anemia, denies blood clots. Infections: The patient denies a history of measles and mumps, denies rheumatic fever, and denies sexually transmitted diseases. Musculoskeletal: The patient denies back pain/injury, denies back problems, denies sciatica, denies knee/foot trouble, denies arthritis, or denies gout. PHYSICAL EXAMINATION: General: The patient is 28 year old male, well nourished, well hydrated in no acute distress. The patient is oriented to time, place, and person. VITALS: Blood pressure 138/64, pulse 80, weight 79.4 kg (175 lb). Body mass index is 26.22 kg/m?. Head ? Normocephalic. EOM intact with sclera clear and no icterus noted. Mouth with mucus membranes moist. Neck - supple with no jugular venous distention noted. Trachea is midline. Lungs ? clear to auscultation. Normal breath sounds in all lung canseco. No rales/rhonchi/wheezing noted. No labored breathing noted, such as retractions. Heart ? normal S1 and S2 auscultated. No rubs/clicks/murmurs noted. Regular rate. Abdomen ? soft and benign but tender in suprapubic area and left lower quadrant, no peritoneal signs noted. Normal bowel sounds. No abdominal bruits noted. Extremities ? no calf tenderness or swelling noted. No pitting edema noted. No obvious deformity noted. Skin ? normal skin integrity. Neurological ? gait normal, no focal deficits noted Psych ? calm and appropriate RADIOLOGIC STUDIES: As Noted IMPRESSION: chronic diverticulitis PLAN: I have discussed the above with the patient and his who is present with him. I have told him that the results of the colonoscopy findings were consistent with diverticulitis and no other pathology was identified. Patient still with crampy abdominal pain. I have recommended continued antibiotics. Will refer patient to Dr. Coello for consideration of laparoscopic sigmoid colectomy CNOV Observed: 10/13/2018 Status: COMPLETED Source: [place] 9:10 AM [facility] REPOSITORY Office Visit (GENSWS) SHON GARNER ([id number]) 1990 Patricia BETH Date Time Provider Department 10/13/18 9:10 AM MICHELLE VARELA During your visit today, we recorded the following information about you: Michelle Varela MD 10/18/2018 1:13 PM Signed Shon Garner 1990 REFERRING PHYSICIAN: Abran Winston MD CHIEF COMPLAINT: Diverticulitis HPI: The patient is a pleasant 28 year old male who presents with recurrent chronic diverticulitis. He states that he had an episode of diverticulitis about 2 years ago. He was given antibiotics and his symptoms of abdominal pain resolved and he recovered well. About a year and a half later, he had another episode, he was again treated with antibiotics and his symptoms abated. Most recently, more than a month ago, he developed symptoms again. He was empirically treated with oral antibiotics, but this time, he did not improve. He was eventually admitted to the hospital and placed on IV antibiotics and he noted improvement. He was discharged on oral antibiotics, but then noted return of crampy abdominal discomfort and frequent loose bowel movements. He denies outright abdominal pain, but he states that he does not feel right. He notes 5-6 loose bowel movements per day, many times with mucus, with crampy lower abdominal discomfort, also with incomplete sensation of emptying and fecal urgency. Denies fevers. Notes slight blood in stools. Also decreased appetite with 20# weight loss with this episode. Also complains of increased abdominal gas. He has tried a low fiber diet, and also use of probiotics, eating yogurt. There was concern that he may have inflammatory bowel disease because of his symptoms of diarrhea and blood in stools - he was scheduled for colonoscopy October 07, 2018. He had presented to ED at [facility] on with the above complaints. He was concerned about worsening his condition Underwent colonoscopy, 10/07/18, findings of localized inflammation of the sigmoid area - pathology - inflammatory changes. Remainder of colon normal Patient states that he is still uncomfortable, presently on cipro and flagyl PAST MEDICAL HISTORY - Chronic sinusitis 1999 - Colitis, acute 08/30/2016 - Diverticulitis of sigmoid colon 04/17/2018 - Gastritis 2007 - Hiatal hernia 2007 PAST SURGICAL HISTORY - EGD 2007 [place] Current Outpatient Prescriptions: ciprofloxacin HCl (CIPRO) 500 mg tablet Take 1 tablet by mouth twice daily for 10 days. metroNIDAZOLE (FLAGYL) 500 mg tablet Take 1 tablet by mouth three times daily for 14 days. FOR 14 DAYS. Lactobacillus acidophilus (ACIDOPHILUS ORAL) Take 1 capsule by mouth once daily. polyethylene glycol 3350 (MIRALAX, GLYCOLAX) 17 gram/dose powder Take 17 g by mouth as needed. ondansetron orally disintegrating (ZOFRAN ODT) 4 mg disintegrating tablet Take 1 tablet by mouth every 8 hours as needed for Nausea/Vomiting. dicyclomine (BENTYL) 20 mg tablet Take 1 tablet by mouth three times daily as needed (abdominal pain). fluticasone (FLONASE) 50 mcg/actuation nasal spray Use 2 Sprays in each nostril once daily. Rinse mouth after use. ALLERGIES: Aspirin PERSONAL HISTORY: Social History Marital status: Single Spouse name: Years of education: Number of children: 1 Occupational History Occupation Employer Comment community nurse Social History Main Topics Smoking status: Never Smoker Smokeless tobacco: Never Used Alcohol use: Yes Comment: 1 beverage per month Drug use: No Sexual activity: Yes Partners with: Female Other Topics Concern Caffeine Concern Not Asked Comment:2-3 beverages daily Social History Narrative Grew up in [place]. Graduate of [employer]. FAMILY HISTORY - Heart Father [place] @ 64 years, living - Diabetes Father - Hypertension Father - Diabetes Maternal Grandmother - Heart Maternal Grandfather d/t [place] @ 48 years - Heart Paternal Uncle - Heart Paternal Uncle - Heart Paternal Uncle - Heart disease Brother - Hyperlipidemia Brother REVIEW OF SYSTEMS: General: The patient denies fatigue, NOTES weight loss, denies weight gain, NOTES feeling hot, and NOTES feelings of cold. Eyes: The patient denies glaucoma, denies eye injury/surgery, does not wear glasses or contacts. Ear/Nose/Throat: The patient NOTES allergies, denies hayfever, denies ear infections, and denies bloody noses. Cardiovascular: The patient denies chest pain, denies heart disease, denies high blood pressure,denies cardiac stent, denies prior heart attack, denies irregular heart beat, denies high cholesterol, denies poor circulation, denies heart failure, other cardiac issues, denies claudication, denies cold feet, denies peripheral arterial stent. Respiratory: The patient denies tuberculosis, denies pneumonia, denies frequent cough, denies pulmonary embolism, denies shortness of breath, and denies coughing up blood. Gastrointestinal: The patient denies difficulty swallowing, NOTES acid reflux, denies ulcers, denies vomiting, denies jaundice/hepatitis, denies gallbladder problems, denies black or tarry stools, denies hemorrhoids, denies bleeding from rectum, denies diverticulitis, NOTES constipation, NOTES diarrhea, denies loss of stool control, and denies hernias. Kidney/Bladder: The patient denies kidney stones, denies urine infections, and denies bloody urine. Skin: The patient denies a history of skin cancer, denies bleeding/changing moles, and denies a history of skin rash. Neurologic: The patient denies a history of epilepsy/convulsions, denies headaches, denies head/spinal injuries, and denies stroke/TIA. Psychiatric: The patient denies psychiatric medications, denies depression, and denies voices, denies substance abuse. Endocrine: The patient denies thyroid disorders, denies diabetes, and denies hormonal problems. Hematologic: The patient denies a history of bruising, denies bleeding, and denies anemia, denies blood clots. Infections: The patient denies a history of measles and mumps, denies rheumatic fever, and denies sexually transmitted diseases. Musculoskeletal: The patient denies back pain/injury, denies back problems, denies sciatica, denies knee/foot trouble, denies arthritis, or denies gout. PHYSICAL EXAMINATION: General: The patient is 28 year old male, well nourished, well hydrated in no acute distress. The patient is oriented to time, place, and person. VITALS: Blood pressure 138/64, pulse 80, weight 79.4 kg (175 lb). Body mass index is 26.22 kg/m?. Head ? Normocephalic. EOM intact with sclera clear and no icterus noted. Mouth with mucus membranes moist. Neck - supple with no jugular venous distention noted. Trachea is midline. Lungs ? clear to auscultation. Normal breath sounds in all lung canseco. No rales/rhonchi/wheezing noted. No labored breathing noted, such as retractions. Heart ? normal S1 and S2 auscultated. No rubs/clicks/murmurs noted. Regular rate. Abdomen ? soft and benign but tender in suprapubic area and left lower quadrant, no peritoneal signs noted. Normal bowel sounds. No abdominal bruits noted. Extremities ? no calf tenderness or swelling noted. No pitting edema noted. No obvious deformity noted. Skin ? normal skin integrity. Neurological ? gait normal, no focal deficits noted Psych ? calm and appropriate RADIOLOGIC STUDIES: As Noted IMPRESSION: chronic diverticulitis PLAN: I have discussed the above with the patient and his who is present with him. I have told him that the results of the colonoscopy findings were consistent with diverticulitis and no other pathology was identified. Patient still with crampy abdominal pain. I have recommended continued antibiotics. Will refer patient to Dr. Coello for consideration of laparoscopic sigmoid colectomy Referring Provider: MICHELLE VARELA [[id number]] Allergies As of Date: 10/13/2018 Noted Allergy Reaction ASPIRIN 08/30/2016 7 - Swelling Comments: Eye swelling. NSAID okay. Date Reviewed: 10/13/2018 Reviewed by: Mihaela Ocampo RN - Fully Assessed Reason for Visit: Post Op [174] Primary Visit Diagnosis:Diverticulitis of large intestine without perforation or abscess without bleeding [K57.32] Order(s):ciprofloxacin HCl (CIPRO) 500 mg tabletTake 1 tablet by mouth twice daily for 7 days. FOR 14 DAYS.Disp: 14 tabletRfl: 0 Prescriptions as of 10/13/2018 Sig: METRONIDAZOLE 500 MG TABLET Take 1 tablet by mouth three * POLYETHYLENE GLYCOL 3350 17 G* Take 17 g by mouth as needed. FLUTICASONE 50 MCG/ACTUATION * Use 2 Sprays in each nostril * CIPROFLOXACIN 500 MG TABLET Take 1 tablet by mouth twice * ACIDOPHILUS ORAL Take 1 capsule by mouth once * ONDANSETRON 4 MG DISINTEGRATI* Take 1 tablet by mouth every * DICYCLOMINE 20 MG TABLET Take 1 tablet by mouth three * Problem List As Of Date 10/13/2018 Noted Resolved Gastritis [K29.70] Hiatal hernia [K44.9] Tinnitus of both ears [H93.13] INVALID FOR* Cervicalgia [M54.2] INVALID FOR* Sigmoid diverticulitis [K57.32] INVALID FOR* Prescriptions ordered this encounter Disp Refills Start End CIPROFLOXACIN 500 MG TABLET 14 t* 0 10/13/2018 10/20/2018 Route: ORAL Sig: Take 1 tablet by mouth twice daily for 7 days. FOR 14 DAYS. Encounter Status:Closed by MD MICHELLE VARELA on 10/18/18 NURSING PROG Observed: 10/08/2018 Status: COMPLETED Source: [place] 9:[address] [facility] REPOSITORY HNO ID: [id number] Author: Jackie (Rn) MARVIN Cunningham Service: (none) Author Type: Registered Nurse Type: Nursing Progress Note Filed: 10/08/2018 9:53 AM Note Text: PACC Nurse Progress Note History AND Physical: PACC Visit Date: N/A Original HANDP Date: 10/02/[address] Varela (General surgery) ED visit Date: N/A Outside HANDP Scanned Date: NA Patient's first language is Divehi but is able to speak and understand some Senegalese Labs Within Last 6 Months: CBC: Date 09/25/18 WBC 18.47 BMP/CMP: Date 09/25/18 within acceptable limits for planned procedure Imaging Within Last 12 Months: See chart Cardiac Testing: none Risk Assessment: N/A Anesthesia Review: N/A Narrative: October 08, 2018 9:53 AM Called patient to review pre-op instructions. Patient unaware that he is scheduled for EGD. States he will call Dr. Varela for clarification. Pre-op Considerations: N/A Chart Check: IN PROGRESS Jackie Cunningham RN October 08, 2018 9:41 AM NURSING PROG Observed: 10/07/2018 Status: COMPLETED Source: [place] 11:00 AM [facility] REPOSITORY HNO ID: [id number] Author: Evon SchillingRn) Svetlana RN Service: (none) Author Type: Registered Nurse Type: Nursing Progress Note Filed: 10/08/2018 12:29 PM Note Text: Pt states he is doing well but having some intermittant cramping gas pain in abdomen. No other problems or questions at this time. Has a follow-up appt. Withdr. Varela NURSING PROG Observed: 10/07/2018 Status: COMPLETED Source: [place] 10:45 AM [facility] REPOSITORY HNO ID: [id number] Author: Kathy SchillingRn) Jocelyn RN Service: Nursing Author Type: Registered Nurse Type: Nursing Progress Note Filed: 10/07/2018 11:45 AM Note Text: Nursing Progress Note Patient Name: Shon Garner Patient Location: LD-OR/LD-OR Daily Note: Pt sitting up in bed drinking loretta lisa and eating a muffin. present at bedside. Discharge instructions were given to and pt. and pt verbalized understanding. Dr. Varela at bedside to answer questions from pt. All questions were addressed per Dr. Varela. This note was completed by: AMRVIN Gabriel POST Observed: 10/07/2018 Status: COMPLETED Source: [place] 10:04 AM [facility] REPOSITORY HNO ID: [id number] Author: Ambar Wilde Service: (none) Author Type: Physician Type: Anesthesia PostOp Filed: 10/07/2018 10:04 AM Note Text: POST ANESTHESIA EVALUATION NOTE SERVICE DATE: 10/07/2018 SERVICE TIME: 10:04 AM : 1990 Vitals: 10/07/18 0752 10/07/18 0950 Temp: 37 ?C (98.6 ?F) 36.7 ?C (98.1 ?F) 10/07/18 0752 10/07/18 0950 10/07/18 0952 10/07/18 0957 BP: 125/78 85/57 106/67 122/54 10/07/18 0752 10/07/18 0950 10/07/18 0952 10/07/18 0957 Pulse: 99 93 91 90 10/07/18 0752 10/07/18 0950 10/07/18 0952 10/07/18 0957 Resp: 18 18 18 18 10/07/18 0752 10/07/18 0950 10/07/18 0952 10/07/18 0957 SpO2: 100% 98% 98% 97% Validated Vital Signs: Yes POST ANES STATUS: No apparent anesthetic complications. The patient is appropriately hydrated with stable respiratory and cardiovascular status. Patient has safe and adequate airway control. The patient has appropriate pain relief and no significant post operative nausea or vomiting. The patient has achieved baseline mental status. Intra-Operative Events: No Significant Anesthesia Events Further assessment by Anesthesia Service: None Other Remarks: SIGNATURE: Ambar Wilde MD PATIENT NAME: Shon Garner DATE: October 07, 2018 TIME: 10:04 AM PAGER/CONTACT #: BRIEF OP NOT Observed: 10/07/2018 Status: COMPLETED Source: [place] 9:48 AM [facility] REPOSITORY HNO ID: [id number] Author: Michelle Varela Service: (none) Author Type: Physician Type: Brief Op Note Filed: 10/07/2018 9:49 AM Note Text: BRIEF OPERATIVE NOTE SURGERY DATE: 10/07/2018 Incision/Procedure Start Time: 9:29 Incision Close/Procedure End Time: 9:47 Surgeon(s)/Proceduralist(s) and Public Health Doctor(s): Avery Procedures: Colonoscopy with biopsies Anesthesia: MAC Findings: irritated sigmoid colon mucosa, patchy areas of erythema, no ulcers or masses Estimated Blood Loss: minimal Specimens: random mucosal biopsies of colon Complications: None Preop Diagnosis: lower abdominal pain, abnormal CT scan Postop Diagnosis: same SIGNATURE: Michelle Varela MD PATIENT NAME: Shon Garner DATE: October 07, 2018 TIME: 9:48 AM PAGER/CONTACT #: ANES PREOP Observed: 10/07/2018 Status: COMPLETED Source: [place] 9:15 AM [facility] REPOSITORY O ID: [id number] Author: Ambar Wilde Service: (none) Author Type: Physician Type: Anesthesia PreOp Filed: 10/07/2018 9:16 AM Note Text: ANESTHESIOLOGY PREOPERATIVE ASSESSMENT SERVICE DATE: 10/07/2018 : 1990 SERVICE TIME: 9:15 AM Surgeon(s): Michelle Varela Procedure(s) (LRB): COLONOSCOPY (N/A) Estimated body mass index is 25.85 kg/m? as calculated from the following: Height as of this encounter: 172.7 cm (5' 8). Weight as of this encounter: 77.1 kg (170 lb). MOST RECENT HEMATOCRIT AND POTASSIUM RESULTS: Hematocrit 43.1 09/25/2018 Potassium 4.5 09/25/2018 ANES DOS/PREOP NOTE: Vitals: 10/07/18 0752 BP: 125/78 Pulse: 99 Resp: 18 Temp: 37 ?C (98.6 ?F) TempSrc: Temporal Artery SpO2: 100% Weight: 77.1 kg (170 lb) Height: 172.7 cm (5' 8) ACTIVE PROBLEM LIST Gastritis Hiatal Hernia Tinnitus of Both Ears Cervicalgia Sigmoid Diverticulitis PAST MEDICAL HISTORY Diagnosis Date - Chronic sinusitis 1999 - Colitis, acute 08/30/2016 - Diverticulitis of sigmoid colon 04/17/2018 - Gastritis 2007 - Hiatal hernia 2007 PAST SURGICAL HISTORY Procedure Laterality Date - EGD 2007 [place] FAMILY HISTORY Problem Relation Age of Onset - Heart Father [place] @ 64 years, living - Diabetes Father - Hypertension Father - Diabetes Maternal Grandmother - Heart Maternal Grandfather d/t [place] @ 48 years - Heart Paternal Uncle - Heart Paternal Uncle - Heart Paternal Uncle - Heart disease Brother - Hyperlipidemia Brother Social History: Social History Substance Use Topics - Smoking status: Never Smoker - Smokeless tobacco: Never Used - Alcohol use Yes Comment: 1 beverage per month No current facility-administered medications on file prior to encounter. Current Outpatient Prescriptions on File Prior to Encounter: ciprofloxacin HCl (CIPRO) 500 mg tablet Take 1 tablet by mouth twice daily for 10 days. metroNIDAZOLE (FLAGYL) 500 mg tablet Take 1 tablet by mouth three times daily for 14 days. FOR 14 DAYS. polyethylene glycol 3350 (MIRALAX, GLYCOLAX) 17 gram/dose powder Take 17 g by mouth as needed. fluticasone (FLONASE) 50 mcg/actuation nasal spray Use 2 Sprays in each nostril once daily. Rinse mouth after use. Lactobacillus acidophilus (ACIDOPHILUS ORAL) Take 1 capsule by mouth once daily. ondansetron orally disintegrating (ZOFRAN ODT) 4 mg disintegrating tablet Take 1 tablet by mouth every 8 hours as needed for Nausea/Vomiting. dicyclomine (BENTYL) 20 mg tablet Take 1 tablet by mouth three times daily as needed (abdominal pain). Current Facility-Administered Medications: lidocaine 10 mg/mL (1 %) 1-2 mg injection (XYLOCAINE) 0.1- 0.2 mL INTRADERMAL PRN Michelle Varela lactated ringers infusion 100 mL/hr INTRAVENOUS CONTINUOUS Michelle Varela Last Rate: 100 mL/hr at 10/07/18 0750 100 mL/hr at 10/07/18 0750 Allergies: ALLERGIES Allergen Reactions - Aspirin Swelling Eye swelling. NSAID okay. REVIEW OF SYSTEMS: REVIEW OF SYSTEMS: As stated in Active Problem List/ Past Medical History ANESTHESIOLOGY REVIEW: Airway Assessment: MP 1; Neck ROM: Full ROM without neurologic symptoms; Airway Evaluation: No significant abnormalities Symptoms of Sleep Apnea: Male gender Intubation History: No previous history of difficult intubation and no history of general anesthesia Dentition: Teeth intact ADDITIONAL PHYSICAL EXAM: Lungs: Lungs clear to auscultation. Good diaphragmatic excursion. Cardiac: normal S1 and S2; no rubs, no murmurs, and no gallops Additional Pertinent Findings: N/A ADVERSE ANESTHESIA EVENT: No history of adverse event FAMILY HIISTORY OF ANESTHESIA: No known issues BLOOD PRODUCTS: Not anticipated for this procedure OTHER MEDICAL PROBLEMS: None I have interviewed and examined the patient. I have reviewed the medical record and/or the pre-anesthesia evaluation, pertinent labs, and test results. Significant changes in the patient's condition since the History and Physical, not otherwise documented in primary service progress notes: No Anesthetic risks, benefits, alternatives, personnel and consent discussed: Yes ANES REVIEW: This contains information obtained greater than 48 hours prior to the Surgery/Procedure. See Day of Surgery Note SIGNATURE: Ambar Wilde MD PATIENT NAME: Shon Garner DATE: October 07, 2018 TIME: 9:15 AM PAGER/CONTACT #: OPERATIVE NO Observed: 10/07/2018 Status: COMPLETED Source: [place] 12:00 AM [facility] REPOSITORY [facility] ID: [id number] Author: Michelle Varela Service: (none) Author Type: Physician Type: Operative Report Filed: 10/08/2018 2:08 PM Note Text: [facility] - Operative Report - SHON Quiroga : 1990 AGE: 28. SEX: M PATIENT TYPE: A HOSP SVC: [facility] LOCATION: [facility] ATTENDING PHYSICIAN: Michelle Varela MD CSN NUMBER: [id number] DATE OF SURGERY/PROCEDURE: 10/07/2018 INCISION/PROCEDURE START TIME: 9:29 AM INCISION CLOSE/PROCEDURE END TIME: 9:47 AM PREOPERATIVE DIAGNOSIS: Lower abdominal pain and abnormal CT scan of the colon. POSTOPERATIVE DIAGNOSIS: Inflammatory changes of the mucosa of the sigmoid colon. SURGEON: Michelle Varela MD [place]EDDING COORDINATOR: No Additional Staff SURGERY/PROCEDURE: Colonoscopy with mucosal biopsies. ANESTHESIA: MAC. LOCATION: [facility]. SPECIMEN: Random mucosal biopsies of the colon. SPECIMEN: Random mucosal biopsies of the colon. INDICATIONS: Shon Garner is a 28-year-old male who presents with lower abdominal pain. He has had multiple bouts of chronic diverticulitis. He also complains of diarrhea with some blood noted. He, therefore, presents for evaluation of colonoscopy. He has been counseled of the risks of procedure including, but not limited to, infection, bleeding, perforation, GI tract requiring emergency surgery, injury to any internal organs such as liver or spleen, inability to complete the colonoscopy, complications, anesthesia, etc. The patient understands and agrees to proceed. DESCRIPTION OF PROCEDURE: After informed consent was given, the patient was brought to the endoscopy suite. Appropriate time-out protocol was done in the preprocedure area as well as in the endoscopy suite. The patient was then given IV anesthesia by the Anesthesia provider. The patient was placed in left lateral decubitus position. The endoscope was carefully inserted in the patient's anus and advanced into the rectum. It was then advanced into the sigmoid colon, then left ascending colon, past splenic flexure into transverse colon, past the hepatic flexure down the right ascending colon to cecum. The cecum was identified by confluence of teniae coli, identification of ileocecal valve, and external palpation. At this level, the colonoscope was slowly retracted back and entire colonic mucosal surface was examined. Using cold grasper forceps, random mucosal biopsies were taken throughout the colon to rule out microscopic colitis. There was no evidence of any masses or lesions in the right colon. There was no evidence of any masses or lesions in the transverse colon. There was no evidence of any masses or lesions of the left colon. In the sigmoid colon, there were patchy areas of erythematous changes to the mucosa. There was also some mucus. However, no masses were noted. The colon did appear spastic at this location. Retroflexed view in the rectum revealed hemorrhoidal changes, but no active inflammation or bleeding. The endoscope was removed intact. The patient tolerated the procedure well. Digital examination of the anal canal revealed no palpable masses. COMPLICATIONS: None. DRAINS: None. Michelle Varela MD LW:[id number] /[id number] SURGICAL TISSUE EXAM Observed: 10/07/2018 Status: F Source: [facility] 12:00 AM [facility] REPOSITORY Test performed at [place] [address] NAME: SHON GARNER REQUESTING: MICHELLE VARELA MD FINAL DIAGNOSIS: COLON, RANDOM BIOPSIES - NONSPECIFIC MUCOSAL INFLAMMATORY CHANGES. SEE COMMENT. COMMENT: Occasional biopsies display congestion and edematous changes within the lamina propria in addition to focally increased numbers of pigment laden macrophages. The possibility of a localized inflammatory insult should be considered. Increased numbers of pigment laden macrophages may be associated with laxative use. Clinical correlation is required. There is no evidence of atypia or malignancy. OPERATIVE PROCEDURE: Colonoscopy with biopsies CLINICAL INFORMATION: Abdominal pain, unspecified abdominal location [R10.9], abnormal CT of the abdomen [R93.5] GROSS DESCRIPTION: Random colon biopsies Received in formalin labeled random colon biopsies are multiple baron soft segments of tissue aggregating to 2.0 x 0.5 x 0.2 cm. The specimens are totally submitted in formalin in one cassette. KVB:shelley SCHREIBER M.D., PATHOLOGIST (Electronic signature on file) Signed out: 10/09/2018 14:05 PRINTED: 10/09/2018 Page 1 of 1 Performed By: #### SURG #### [place] [address] NURSING PROG Observed: 10/06/2018 Status: COMPLETED Source: [place] 3:59 PM [facility] REPOSITORY HNO ID: [id number] Author: Madison SchillingRn) MARVIN Centeno Service: Nursing Author Type: Registered Nurse Type: Nursing Progress Note Filed: 10/06/2018 4:03 PM Note Text: Pt called stating that he had drank about half of his prep and had vomited twice and was attempting to consume the prep at a slower pace.. I advised patient to contact Dr. Varela's office for further instruction and I provided him with the office phone number. Patient stated he would call. HISTORY PHYSICAL Observed: 10/06/2018 Status: COMPLETED Source: [place] 3:10 PM [facility] REPOSITORY HNO ID: [id number] Author: Michelle Varela Service: (none) Author Type: Physician Type: HANDP Filed: 10/06/2018 3:10 PM Note Text: Shon Garner 1990 ? ? REFERRING PHYSICIAN: Abran Winston MD ? CHIEF COMPLAINT: Diverticulitis ? HPI: The patient is a pleasant 28 year old male who presents with recurrent chronic diverticulitis. He states that he had an episode of diverticulitis about 2 years ago. He was given antibiotics and his symptoms of abdominal pain resolved and he recovered well. About a year and a half later, he had another episode, he was again treated with antibiotics and his symptoms abated. Most recently, more than a month ago, he developed symptoms again. He was empirically treated with oral antibiotics, but this time, he did not improve. He was eventually admitted to the hospital and placed on IV antibiotics and he noted improvement. He was discharged on oral antibiotics, but then noted return of crampy abdominal discomfort and frequent loose bowel movements. He denies outright abdominal pain, but he states that he does not feel right. He notes 5-6 loose bowel movements per day, many times with mucus, with crampy lower abdominal discomfort, also with incomplete sensation of emptying and fecal urgency. Denies fevers. Notes slight blood in stools. Also decreased appetite with 20# weight loss with this episode. Also complains of increased abdominal gas. He has tried a low fiber diet, and also use of probiotics, eating yogurt. There was concern that he may have inflammatory bowel disease because of his symptoms of diarrhea and blood in stools - he was scheduled for colonoscopy October 07, 2018. He had presented to ED at [facility] on with the above complaints. He was concerned about worsening his condition ? ? PAST MEDICAL HISTORY Diagnosis Date - Chronic sinusitis 1999 - Colitis, acute 08/30/2016 - Diverticulitis of sigmoid colon 04/17/2018 - Gastritis 2007 - Hiatal hernia 2007 ? PAST SURGICAL HISTORY Procedure Laterality Date - EGD ? 2007 ? [place] ? ? Current Outpatient Prescriptions: ciprofloxacin HCl (CIPRO) 500 mg tablet Take 1 tablet by mouth twice daily for 10 days. metroNIDAZOLE (FLAGYL) 500 mg tablet Take 1 tablet by mouth three times daily for 14 days. FOR 14 DAYS. Lactobacillus acidophilus (ACIDOPHILUS ORAL) Take 1 capsule by mouth once daily. polyethylene glycol 3350 (MIRALAX, GLYCOLAX) 17 gram/dose powder Take 17 g by mouth as needed. ondansetron orally disintegrating (ZOFRAN ODT) 4 mg disintegrating tablet Take 1 tablet by mouth every 8 hours as needed for Nausea/Vomiting. dicyclomine (BENTYL) 20 mg tablet Take 1 tablet by mouth three times daily as needed (abdominal pain). fluticasone (FLONASE) 50 mcg/actuation nasal spray Use 2 Sprays in each nostril once daily. Rinse mouth after use. ? ? ALLERGIES: Aspirin ? PERSONAL HISTORY: Social History Marital status: Single Spouse name: Years of education: Number of children: 1 Occupational History Occupation Employer Comment community nurse Social History Main Topics Smoking status: Never Smoker Smokeless tobacco: Never Used Alcohol use: Yes Comment: 1 beverage per month Drug use: No Sexual activity: Yes Partners with: Female Other Topics Concern Caffeine Concern Not Asked Comment:2-3 beverages daily Social History Narrative Grew up in [place]. Graduate of [employer]. ? FAMILY HISTORY Problem Relation Age of Onset - Heart Father ? ? [place] @ 64 years, living - Diabetes Father ? - Hypertension Father ? - Diabetes Maternal Grandmother ? - Heart Maternal Grandfather ? ? d/t [place] @ 48 years - Heart Paternal Uncle ? - Heart Paternal Uncle ? - Heart Paternal Uncle ? - Heart disease Brother ? - Hyperlipidemia Brother ? ? ? REVIEW OF SYSTEMS: General: The patient denies fatigue, NOTES weight loss, denies weight gain, NOTES feeling hot, and NOTES feelings of cold. Eyes: The patient denies glaucoma, denies eye injury/surgery, does not wear glasses or contacts. Ear/Nose/Throat: The patient NOTES allergies, denies hayfever, denies ear infections, and denies bloody noses. Cardiovascular: The patient denies chest pain, denies heart disease, denies high blood pressure,denies cardiac stent, denies prior heart attack, denies irregular heart beat, denies high cholesterol, denies poor circulation, denies heart failure, other cardiac issues, denies claudication, denies cold feet, denies peripheral arterial stent. Respiratory: The patient denies tuberculosis, denies pneumonia, denies frequent cough, denies pulmonary embolism, denies shortness of breath, and denies coughing up blood. Gastrointestinal: The patient denies difficulty swallowing, NOTES acid reflux, denies ulcers, denies vomiting, denies jaundice/hepatitis, denies gallbladder problems, denies black or tarry stools, denies hemorrhoids, denies bleeding from rectum, denies diverticulitis, NOTES constipation, NOTES diarrhea, denies loss of stool control, and denies hernias. Kidney/Bladder: The patient denies kidney stones, denies urine infections, and denies bloody urine. Skin: The patient denies a history of skin cancer, denies bleeding/changing moles, and denies a history of skin rash. Neurologic: The patient denies a history of epilepsy/convulsions, denies headaches, denies head/spinal injuries, and denies stroke/TIA. Psychiatric: The patient denies psychiatric medications, denies depression, and denies voices, denies substance abuse. Endocrine: The patient denies thyroid disorders, denies diabetes, and denies hormonal problems. Hematologic: The patient denies a history of bruising, denies bleeding, and denies anemia, denies blood clots. Infections: The patient denies a history of measles and mumps, denies rheumatic fever, and denies sexually transmitted diseases. Musculoskeletal: The patient denies back pain/injury, denies back problems, denies sciatica, denies knee/foot trouble, denies arthritis, or denies gout. ? PHYSICAL EXAMINATION: General: The patient is 28 year old male, well nourished, well hydrated in no acute distress. The patient is oriented to time, place, and person. VITALS: Blood pressure 138/64, pulse 80, weight 79.4 kg (175 lb). Body mass index is 26.22 kg/m?. Head ? Normocephalic. EOM intact with sclera clear and no icterus noted. Mouth with mucus membranes moist. Neck - supple with no jugular venous distention noted. Trachea is midline. Lungs ? clear to auscultation. Normal breath sounds in all lung canseco. No rales/rhonchi/wheezing noted. No labored breathing noted, such as retractions. Heart ? normal S1 and S2 auscultated. No rubs/clicks/murmurs noted. Regular rate. Abdomen ? soft and benign but tender in suprapubic area and left lower quadrant, no peritoneal signs noted. Normal bowel sounds. No abdominal bruits noted. Extremities ? no calf tenderness or swelling noted. No pitting edema noted. No obvious deformity noted. Skin ? normal skin integrity. Neurological ? gait normal, no focal deficits noted Psych ? calm and appropriate RADIOLOGIC STUDIES: As Noted ? ? IMPRESSION: chronic diverticulitis ? PLAN: I have discussed the above with the patient. I have explained the disease process of diverticulosis and diverticulitis with him. He seems to have an ongoing smoldering case of diverticulitis and I would recommend that he continue on antibiotics. I have offered a colonoscopy for evaluation, possible biopsies. I have explained the procedure to the patient. I have counseled the patient as to the risks of the procedure, including but not limited to: infection, bleeding, injury to any intraabdominal organs such as liver/spleen, perforation of the GI tract, inability to complete the procedure, complications of anesthesia, etc. -? the patient understands. I have also discussed surgical resection with the patient, as his diverticulitis does not seem to be greatly improved with antibiotics. He states that he has a better understanding of this disease process and wishes to proceed with the above. I have answered all questions to the patient?s satisfaction and the patient has no further questions. . Diagnoses: (K57.32) Diverticulitis of large intestine without perforation or abscess without bleeding (primary encounter diagnosis) (R10.30) Lower abdominal pain Return to Clinic: The patient is instructed to follow-up with me after the procedure. ? ? NURSING PROG Observed: 10/06/2018 Status: COMPLETED Source: [place] 12:21 PM [facility] REPOSITORY HNO ID: [id number] Author: Ksenia (Rn) MARVIN Fan Service: Nursing Author Type: Registered Nurse Type: Nursing Progress Note Filed: 10/06/2018 12:21 PM Note Text: Pre call completed, arrival time give. PROGRESS Observed: 10/03/2018 Status: COMPLETED Source: [place] 3:36 PM [facility] REPOSITORY HNO ID: [id number] Author: Michelle Varela Service: (none) Author Type: Physician Type: Progress Notes Filed: 10/04/2018 11:42 AM Note Text: Shon Garner 1990 REFERRING PHYSICIAN: Abran Winston MD CHIEF COMPLAINT: Diverticulitis HPI: The patient is a pleasant 28 year old male who presents with recurrent chronic diverticulitis. He states that he had an episode of diverticulitis about 2 years ago. He was given antibiotics and his symptoms of abdominal pain resolved and he recovered well. About a year and a half later, he had another episode, he was again treated with antibiotics and his symptoms abated. Most recently, more than a month ago, he developed symptoms again. He was empirically treated with oral antibiotics, but this time, he did not improve. He was eventually admitted to the hospital and placed on IV antibiotics and he noted improvement. He was discharged on oral antibiotics, but then noted return of crampy abdominal discomfort and frequent loose bowel movements. He denies outright abdominal pain, but he states that he does not feel right. He notes 5-6 loose bowel movements per day, many times with mucus, with crampy lower abdominal discomfort, also with incomplete sensation of emptying and fecal urgency. Denies fevers. Notes slight blood in stools. Also decreased appetite with 20# weight loss with this episode. Also complains of increased abdominal gas. He has tried a low fiber diet, and also use of probiotics, eating yogurt. There was concern that he may have inflammatory bowel disease because of his symptoms of diarrhea and blood in stools - he was scheduled for colonoscopy October 07, 2018. He had presented to ED at [facility] on with the above complaints. He was concerned about worsening his condition PAST MEDICAL HISTORY Diagnosis Date - Chronic sinusitis 1999 - Colitis, acute 08/30/2016 - Diverticulitis of sigmoid colon 04/17/2018 - Gastritis 2007 - Hiatal hernia 2007 PAST SURGICAL HISTORY Procedure Laterality Date - EGD 2007 [place] Current Outpatient Prescriptions: ciprofloxacin HCl (CIPRO) 500 mg tablet Take 1 tablet by mouth twice daily for 10 days. metroNIDAZOLE (FLAGYL) 500 mg tablet Take 1 tablet by mouth three times daily for 14 days. FOR 14 DAYS. Lactobacillus acidophilus (ACIDOPHILUS ORAL) Take 1 capsule by mouth once daily. polyethylene glycol 3350 (MIRALAX, GLYCOLAX) 17 gram/dose powder Take 17 g by mouth as needed. ondansetron orally disintegrating (ZOFRAN ODT) 4 mg disintegrating tablet Take 1 tablet by mouth every 8 hours as needed for Nausea/Vomiting. dicyclomine (BENTYL) 20 mg tablet Take 1 tablet by mouth three times daily as needed (abdominal pain). fluticasone (FLONASE) 50 mcg/actuation nasal spray Use 2 Sprays in each nostril once daily. Rinse mouth after use. ALLERGIES: Aspirin PERSONAL HISTORY: Social History Marital status: Single Spouse name: Years of education: Number of children: 1 Occupational History Occupation Employer Comment community nurse Social History Main Topics Smoking status: Never Smoker Smokeless tobacco: Never Used Alcohol use: Yes Comment: 1 beverage per month Drug use: No Sexual activity: Yes Partners with: Female Other Topics Concern Caffeine Concern Not Asked Comment:2-3 beverages daily Social History Narrative Grew up in [place]. Graduate of [employer]. FAMILY HISTORY Problem Relation Age of Onset - Heart Father [place] @ 64 years, living - Diabetes Father - Hypertension Father - Diabetes Maternal Grandmother - Heart Maternal Grandfather d/t [place] @ 48 years - Heart Paternal Uncle - Heart Paternal Uncle - Heart Paternal Uncle - Heart disease Brother - Hyperlipidemia Brother REVIEW OF SYSTEMS: General: The patient denies fatigue, NOTES weight loss, denies weight gain, NOTES feeling hot, and NOTES feelings of cold. Eyes: The patient denies glaucoma, denies eye injury/surgery, does not wear glasses or contacts. Ear/Nose/Throat: The patient NOTES allergies, denies hayfever, denies ear infections, and denies bloody noses. Cardiovascular: The patient denies chest pain, denies heart disease, denies high blood pressure,denies cardiac stent, denies prior heart attack, denies irregular heart beat, denies high cholesterol, denies poor circulation, denies heart failure, other cardiac issues, denies claudication, denies cold feet, denies peripheral arterial stent. Respiratory: The patient denies tuberculosis, denies pneumonia, denies frequent cough, denies pulmonary embolism, denies shortness of breath, and denies coughing up blood. Gastrointestinal: The patient denies difficulty swallowing, NOTES acid reflux, denies ulcers, denies vomiting, denies jaundice/hepatitis, denies gallbladder problems, denies black or tarry stools, denies hemorrhoids, denies bleeding from rectum, denies diverticulitis, NOTES constipation, NOTES diarrhea, denies loss of stool control, and denies hernias. Kidney/Bladder: The patient denies kidney stones, denies urine infections, and denies bloody urine. Skin: The patient denies a history of skin cancer, denies bleeding/changing moles, and denies a history of skin rash. Neurologic: The patient denies a history of epilepsy/convulsions, denies headaches, denies head/spinal injuries, and denies stroke/TIA. Psychiatric: The patient denies psychiatric medications, denies depression, and denies voices, denies substance abuse. Endocrine: The patient denies thyroid disorders, denies diabetes, and denies hormonal problems. Hematologic: The patient denies a history of bruising, denies bleeding, and denies anemia, denies blood clots. Infections: The patient denies a history of measles and mumps, denies rheumatic fever, and denies sexually transmitted diseases. Musculoskeletal: The patient denies back pain/injury, denies back problems, denies sciatica, denies knee/foot trouble, denies arthritis, or denies gout. PHYSICAL EXAMINATION: General: The patient is 28 year old male, well nourished, well hydrated in no acute distress. The patient is oriented to time, place, and person. VITALS: Blood pressure 138/64, pulse 80, weight 79.4 kg (175 lb). Body mass index is 26.22 kg/m?. Head ? Normocephalic. EOM intact with sclera clear and no icterus noted. Mouth with mucus membranes moist. Neck - supple with no jugular venous distention noted. Trachea is midline. Lungs ? clear to auscultation. Normal breath sounds in all lung canseco. No rales/rhonchi/wheezing noted. No labored breathing noted, such as retractions. Heart ? normal S1 and S2 auscultated. No rubs/clicks/murmurs noted. Regular rate. Abdomen ? soft and benign but tender in suprapubic area and left lower quadrant, no peritoneal signs noted. Normal bowel sounds. No abdominal bruits noted. Extremities ? no calf tenderness or swelling noted. No pitting edema noted. No obvious deformity noted. Skin ? normal skin integrity. Neurological ? gait normal, no focal deficits noted Psych ? calm and appropriate RADIOLOGIC STUDIES: As Noted Assessment IMPRESSION: chronic diverticulitis PLAN: I have discussed the above with the patient. I have explained the disease process of diverticulosis and diverticulitis with him. He seems to have an ongoing smoldering case of diverticulitis and I would recommend that he continue on antibiotics. I have offered a colonoscopy for evaluation, possible biopsies. I have explained the procedure to the patient. I have counseled the patient as to the risks of the procedure, including but not limited to: infection, bleeding, injury to any intraabdominal organs such as liver/spleen, perforation of the GI tract, inability to complete the procedure, complications of anesthesia, etc. -? the patient understands. I have also discussed surgical resection with the patient, as his diverticulitis does not seem to be greatly improved with antibiotics. He states that he has a better understanding of this disease process and wishes to proceed with the above. I have answered all questions to the patient?s satisfaction and the patient has no further questions. . Diagnoses: (K57.32) Diverticulitis of large intestine without perforation or abscess without bleeding (primary encounter diagnosis) (R10.30) Lower abdominal pain Return to Clinic: The patient is instructed to follow-up with me after the procedure. Michelle Varela MD NURSING PROG Observed: 10/03/2018 Status: COMPLETED Source: [place] 11:16 AM [facility] REPOSITORY HNO ID: [id number] Author: Madison SchillingRn) MARVIN Centeno Service: Nursing Author Type: Registered Nurse Type: Nursing Progress Note Filed: 10/03/2018 11:17 AM Note Text: Pre call complete. Pt denies any questions or concerns. Reminded pt to do prep and to call with any questions. CNOV Observed: 10/02/2018 Status: COMPLETED Source: [place] 1:50 PM [facility] REPOSITORY Office Visit (GENSWS) SHON GARNER ([id number]) 1990 [facility] Date Time Provider Department 10/02/18 1:50 PM MICHELLE VARELA During your visit today, we recorded the following information about you: Pulse Blood pressure Weight 80/minute 138/64 79.4 kg Michelle Varela MD 10/02/2018 2:34 PM Signed How to Prepare for Your Colonoscopy Using Golytely, Nulytely, Trilyte or Colyte Preparations with General Anesthesia IMPORTANT - Read These Instructions at Least 2 Weeks Before your Colonoscopy Piña Instructions: ? Your bowel must be empty so that your doctor can clearly view your colon. Follow all of the instructions in this handout EXACTLY as they are written. If you do NOT follow the directions for when to start drinking the bowel preparation, your colonoscopy WILL be cancelled. ? Do NOT eat any solid food the ENTIRE day before your colonoscopy. ? Buy your bowel preparation at least 5 days before your colonoscopy. ? Do NOT mix the solution until the day before your colonoscopy. Designated Violin Teacher on the Day of Your Exam A responsible family member or friend MUST come with you to your colonoscopy and REMAIN in the endoscopy area until you are discharged. You are NOT ALLOWED to drive, take a taxi or bus, or leave the Endoscopy Center ALONE. If you do not have a responsible non emergency services ambulance driver (family member or friend) with you to take you home, you exam cannot be done with sedation and will be cancelled. Medications Some of the medications you take may need to be stopped or adjusted before your colonoscopy. You MUST call the doctor who ordered any of the following medicines at least 2 weeks before your colonoscopy. ? Blood thinners - such as Coumadin (warfarin), Plavix (clopidogrel), Ticlid (ticlopidine hydrochloride), Agrylin (anagrelide), Xarelto (Rivaroxaban), Pradaxa (Dabigatran), Eliquis (Apixaban), and Effient (Prasugrel). ? Insulin or diabetes pills. Please call the doctor that monitors your glucose levels. Your insulin dosage may need to be adjusted due to the diet restrictions required with this bowel preparation. (Please bring your diabetes medicines with you on the day of your procedure.) If you take aspirin, take it and ALL other medications prescribed by your doctor. On the day of your colonoscopy, take your medications with a sip of water. Five (5) Days Before Your Colonoscopy ? Do NOT take medicines that stop diarrhea - such as Imodium, Kaopectate, or Pepto Bismol. ? Do NOT take fiber supplements - such as Metamucil, Citrucel, or Perdiem. ? Do NOT take products that contain iron - such as multi-vitamins (the label lists what is in the products). ? Do NOT take Vitamin E. Buy the prescription bowel preparation solution at your local pharmacy or drugstore pharmacy. Three (3) Days Before Your Colonoscopy ? Do NOT eat high-fiber foods - such as popcorn, beans, seeds (flax, sunflower, quinoa), multigrain bread, nuts, salad/vegetables, or fresh and dried fruit. One (1) Day Before Your Colonoscopy Only drink clear liquids the ENTIRE DAY before your colonoscopy. Do NOT eat any solid foods. Drink at least 8 ounces of clear liquids every hour after waking up. The clear liquids you can drink include: ? Water, apple, or white grape juice; broth; coffee or tea (without milk or creamer); clear carbonated beverages such as loretta lisa or lemon-lovelock soda; Gatorade or other sports drinks (not red); Daniel-Aid or other flavored drinks (not red). You may eat plain jello or other gelatins (not red) or popsicles (not red). Do NOT drink alcohol on the day before or the day of the procedure. When to Mix and Drink Your Bowel Prep Follow the instructions on the label. After mixing, place the solution in the refrigerator for a couple of hours before drinking. You may add the flavor pack that came with the bowel preparation. Do NOT add ice, sugar or any flavorings to the solution. Evening Before Your Colonoscopy ? Start drinking the bowel preparation at 6 PM the evening before your colonoscopy. Drink an 8-oz glass of bowel preparation every 10 minutes. You must finish drinking the solution by 9 PM the night before your scheduled procedure. ? You may continue to drink clear liquids until midnight. Do NOT eat or drink ANYTHING after midnight the night before your procedure or your procedure may be cancelled. This is for your safety and will reduce the risk of having any food or liquid in your stomach move into your lungs (aspiration) during a procedure. If you take aspirin, take it and ALL other prescribed medicines with a sip of water on the day of your colonoscopy. Candy Huber LPN 10/02/2018 3:20 PM Signed REVIEW OF SYSTEMS: General: The patient denies fatigue, NOTES weight loss, denies weight gain, NOTES feeling hot, and NOTES feelings of cold. Eyes: The patient denies glaucoma, denies eye injury/surgery, does not wear glasses or contacts. Ear/Nose/Throat: The patient NOTES allergies, denies hayfever, denies ear infections, and denies bloody noses. Cardiovascular: The patient denies chest pain, denies heart disease, denies high blood pressure,denies cardiac stent, denies prior heart attack, denies irregular heart beat, denies high cholesterol, denies poor circulation, denies heart failure, other cardiac issues, denies claudication, denies cold feet, denies peripheral arterial stent. Respiratory: The patient denies tuberculosis, denies pneumonia, denies frequent cough, denies pulmonary embolism, denies shortness of breath, and denies coughing up blood. Gastrointestinal: The patient denies difficulty swallowing, NOTES acid reflux, denies ulcers, denies vomiting, denies jaundice/hepatitis, denies gallbladder problems, denies black or tarry stools, denies hemorrhoids, denies bleeding from rectum, denies diverticulitis, NOTES constipation, NOTES diarrhea, denies loss of stool control, and denies hernias. Kidney/Bladder: The patient denies kidney stones, denies urine infections, and denies bloody urine. Skin: The patient denies a history of skin cancer, denies bleeding/changing moles, and denies a history of skin rash. Neurologic: The patient denies a history of epilepsy/convulsions, denies headaches, denies head/spinal injuries, and denies stroke/TIA. Psychiatric: The patient denies psychiatric medications, denies depression, and denies voices, denies substance abuse. Endocrine: The patient denies thyroid disorders, denies diabetes, and denies hormonal problems. Hematologic: The patient denies a history of bruising, denies bleeding, and denies anemia, denies blood clots. Infections: The patient denies a history of measles and mumps, denies rheumatic fever, and denies sexually transmitted diseases. Musculoskeletal: The patient denies back pain/injury, denies back problems, denies sciatica, denies knee/foot trouble, denies arthritis, or denies gout. When was patient's last Mammogram screening? N/A Last Colonoscopy: none Candy Varela MD 10/04/2018 11:42 AM Signed Shon Garner 1990 REFERRING PHYSICIAN: Abran Winston MD CHIEF COMPLAINT: Diverticulitis HPI: The patient is a pleasant 28 year old male who presents with recurrent chronic diverticulitis. He states that he had an episode of diverticulitis about 2 years ago. He was given antibiotics and his symptoms of abdominal pain resolved and he recovered well. About a year and a half later, he had another episode, he was again treated with antibiotics and his symptoms abated. Most recently, more than a month ago, he developed symptoms again. He was empirically treated with oral antibiotics, but this time, he did not improve. He was eventually admitted to the hospital and placed on IV antibiotics and he noted improvement. He was discharged on oral antibiotics, but then noted return of crampy abdominal discomfort and frequent loose bowel movements. He denies outright abdominal pain, but he states that he does not feel right. He notes 5-6 loose bowel movements per day, many times with mucus, with crampy lower abdominal discomfort, also with incomplete sensation of emptying and fecal urgency. Denies fevers. Notes slight blood in stools. Also decreased appetite with 20# weight loss with this episode. Also complains of increased abdominal gas. He has tried a low fiber diet, and also use of probiotics, eating yogurt. There was concern that he may have inflammatory bowel disease because of his symptoms of diarrhea and blood in stools - he was scheduled for colonoscopy October 07, 2018. He had presented to ED at [facility] on with the above complaints. He was concerned about worsening his condition PAST MEDICAL HISTORY Diagnosis Date - Chronic sinusitis 1999 - Colitis, acute 08/30/2016 - Diverticulitis of sigmoid colon 04/17/2018 - Gastritis 2007 - Hiatal hernia 2007 PAST SURGICAL HISTORY Procedure Laterality Date - EGD 2007 [place] Current Outpatient Prescriptions: ciprofloxacin HCl (CIPRO) 500 mg tablet Take 1 tablet by mouth twice daily for 10 days. metroNIDAZOLE (FLAGYL) 500 mg tablet Take 1 tablet by mouth three times daily for 14 days. FOR 14 DAYS. Lactobacillus acidophilus (ACIDOPHILUS ORAL) Take 1 capsule by mouth once daily. polyethylene glycol 3350 (MIRALAX, GLYCOLAX) 17 gram/dose powder Take 17 g by mouth as needed. ondansetron orally disintegrating (ZOFRAN ODT) 4 mg disintegrating tablet Take 1 tablet by mouth every 8 hours as needed for Nausea/Vomiting. dicyclomine (BENTYL) 20 mg tablet Take 1 tablet by mouth three times daily as needed (abdominal pain). fluticasone (FLONASE) 50 mcg/actuation nasal spray Use 2 Sprays in each nostril once daily. Rinse mouth after use. ALLERGIES: Aspirin PERSONAL HISTORY: Social History Marital status: Single Spouse name: Years of education: Number of children: 1 Occupational History Occupation Employer Comment community nurse Social History Main Topics Smoking status: Never Smoker Smokeless tobacco: Never Used Alcohol use: Yes Comment: 1 beverage per month Drug use: No Sexual activity: Yes Partners with: Female Other Topics Concern Caffeine Concern Not Asked Comment:2-3 beverages daily Social History Narrative Grew up in [place]. Graduate of [employer]. FAMILY HISTORY Problem Relation Age of Onset - Heart Father [place] @ 64 years, living - Diabetes Father - Hypertension Father - Diabetes Maternal Grandmother - Heart Maternal Grandfather d/t [place] @ 48 years - Heart Paternal Uncle - Heart Paternal Uncle - Heart Paternal Uncle - Heart disease Brother - Hyperlipidemia Brother REVIEW OF SYSTEMS: General: The patient denies fatigue, NOTES weight loss, denies weight gain, NOTES feeling hot, and NOTES feelings of cold. Eyes: The patient denies glaucoma, denies eye injury/surgery, does not wear glasses or contacts. Ear/Nose/Throat: The patient NOTES allergies, denies hayfever, denies ear infections, and denies bloody noses. Cardiovascular: The patient denies chest pain, denies heart disease, denies high blood pressure,denies cardiac stent, denies prior heart attack, denies irregular heart beat, denies high cholesterol, denies poor circulation, denies heart failure, other cardiac issues, denies claudication, denies cold feet, denies peripheral arterial stent. Respiratory: The patient denies tuberculosis, denies pneumonia, denies frequent cough, denies pulmonary embolism, denies shortness of breath, and denies coughing up blood. Gastrointestinal: The patient denies difficulty swallowing, NOTES acid reflux, denies ulcers, denies vomiting, denies jaundice/hepatitis, denies gallbladder problems, denies black or tarry stools, denies hemorrhoids, denies bleeding from rectum, denies diverticulitis, NOTES constipation, NOTES diarrhea, denies loss of stool control, and denies hernias. Kidney/Bladder: The patient denies kidney stones, denies urine infections, and denies bloody urine. Skin: The patient denies a history of skin cancer, denies bleeding/changing moles, and denies a history of skin rash. Neurologic: The patient denies a history of epilepsy/convulsions, denies headaches, denies head/spinal injuries, and denies stroke/TIA. Psychiatric: The patient denies psychiatric medications, denies depression, and denies voices, denies substance abuse. Endocrine: The patient denies thyroid disorders, denies diabetes, and denies hormonal problems. Hematologic: The patient denies a history of bruising, denies bleeding, and denies anemia, denies blood clots. Infections: The patient denies a history of measles and mumps, denies rheumatic fever, and denies sexually transmitted diseases. Musculoskeletal: The patient denies back pain/injury, denies back problems, denies sciatica, denies knee/foot trouble, denies arthritis, or denies gout. PHYSICAL EXAMINATION: General: The patient is 28 year old male, well nourished, well hydrated in no acute distress. The patient is oriented to time, place, and person. VITALS: Blood pressure 138/64, pulse 80, weight 79.4 kg (175 lb). Body mass index is 26.22 kg/m?. Head ? Normocephalic. EOM intact with sclera clear and no icterus noted. Mouth with mucus membranes moist. Neck - supple with no jugular venous distention noted. Trachea is midline. Lungs ? clear to auscultation. Normal breath sounds in all lung canseco. No rales/rhonchi/wheezing noted. No labored breathing noted, such as retractions. Heart ? normal S1 and S2 auscultated. No rubs/clicks/murmurs noted. Regular rate. Abdomen ? soft and benign but tender in suprapubic area and left lower quadrant, no peritoneal signs noted. Normal bowel sounds. No abdominal bruits noted. Extremities ? no calf tenderness or swelling noted. No pitting edema noted. No obvious deformity noted. Skin ? normal skin integrity. Neurological ? gait normal, no focal deficits noted Psych ? calm and appropriate RADIOLOGIC STUDIES: As Noted Assessment IMPRESSION: chronic diverticulitis PLAN: I have discussed the above with the patient. I have explained the disease process of diverticulosis and diverticulitis with him. He seems to have an ongoing smoldering case of diverticulitis and I would recommend that he continue on antibiotics. I have offered a colonoscopy for evaluation, possible biopsies. I have explained the procedure to the patient. I have counseled the patient as to the risks of the procedure, including but not limited to: infection, bleeding, injury to any intraabdominal organs such as liver/spleen, perforation of the GI tract, inability to complete the procedure, complications of anesthesia, etc. -? the patient understands. I have also discussed surgical resection with the patient, as his diverticulitis does not seem to be greatly improved with antibiotics. He states that he has a better understanding of this disease process and wishes to proceed with the above. I have answered all questions to the patient?s satisfaction and the patient has no further questions. . Diagnoses: (K57.32) Diverticulitis of large intestine without perforation or abscess without bleeding (primary encounter diagnosis) (R10.30) Lower abdominal pain Return to Clinic: The patient is instructed to follow-up with me after the procedure. Michelle Varela MD Referring Provider: ABRAN WINSTON [[id number]] Allergies As of Date: 10/02/2018 Noted Allergy Reaction ASPIRIN 08/30/2016 7 - Swelling Comments: Eye swelling. NSAID okay. Date Reviewed: 10/02/2018 Reviewed by: Candy Huber LPN - Fully Assessed Reason for Visit: Diverticulitis [271] Primary Visit Diagnosis:Diverticulitis of large intestine without perforation or abscess without bleeding [K57.32] Other Visit Diagnosis:Lower abdominal pain [R10.30] Order(s):[facility] PT ED DIGESTIVE DISEASES [] Order #: [id number]: 1 [] peg 3350-Electrolytes (GOLYTELY) 236-22.74-6.74 -5.86 gram suspensionTake 4,000 mL by mouth one time only for 1 dose. Refer to printed prep instructions from your doctor.Disp: 1 BottleRfl: 0 COLONOSCOPY - DIAGNOSTIC [[id number]] [facility]: [id number] [facility] [] Order #: [id number]. #:[id number]: 1 ciprofloxacin HCl (CIPRO) 500 mg tabletTake 1 tablet by mouth twice daily for 10 days.Disp: 20 tabletRfl: 0 metroNIDAZOLE (FLAGYL) 500 mg tabletTake 1 tablet by mouth three times daily for 14 days. FOR 14 DAYS.Disp: 42 tabletRfl: 0 Prescriptions as of 10/02/2018 Sig: PEG 3350-ELECTROLYTES 236 GRA* Take 4,000 mL by mouth one ti* CIPROFLOXACIN 500 MG TABLET Take 1 tablet by mouth twice * METRONIDAZOLE 500 MG TABLET Take 1 tablet by mouth three * ACIDOPHILUS ORAL Take 1 capsule by mouth once * POLYETHYLENE GLYCOL 3350 17 G* Take 17 g by mouth as needed. ONDANSETRON 4 MG DISINTEGRATI* Take 1 tablet by mouth every * DICYCLOMINE 20 MG TABLET Take 1 tablet by mouth three * FLUTICASONE 50 MCG/ACTUATION * Use 2 Sprays in each nostril * Problem List As Of Date 10/02/2018 Noted Resolved Gastritis [K29.70] Hiatal hernia [K44.9] Tinnitus of both ears [H93.13] INVALID FOR* Cervicalgia [M54.2] INVALID FOR* Sigmoid diverticulitis [K57.32] INVALID FOR* Other instructions from your clinician: How to Prepare for Your Colonoscopy Using Golytely, Nulytely, Trilyte or Colyte Preparations with General Anesthesia IMPORTANT - Read These Instructions at Least 2 Weeks Before your Colonoscopy Piña Instructions: ? Your bowel must be empty so that your doctor can clearly view your colon. Follow all of the instructions in this handout EXACTLY as they are written. If you do NOT follow the directions for when to start drinking the bowel preparation, your colonoscopy WILL be cancelled. ? Do NOT eat any solid food the ENTIRE day before your colonoscopy. ? Buy your bowel preparation at least 5 days before your colonoscopy. ? Do NOT mix the solution until the day before your colonoscopy. Designated Violin Teacher on the Day of Your Exam A responsible family member or friend MUST come with you to your colonoscopy and REMAIN in the endoscopy area until you are discharged. You are NOT ALLOWED to drive, take a taxi or bus, or leave the Endoscopy Center ALONE. If you do not have a responsible non emergency services ambulance driver (family member or friend) with you to take you home, you exam cannot be done with sedation and will be cancelled. Medications Some of the medications you take may need to be stopped or adjusted before your colonoscopy. You MUST call the doctor who ordered any of the following medicines at least 2 weeks before your colonoscopy. ? Blood thinners - such as Coumadin (warfarin), Plavix (clopidogrel), Ticlid (ticlopidine hydrochloride), Agrylin (anagrelide), Xarelto (Rivaroxaban), Pradaxa (Dabigatran), Eliquis (Apixaban), and Effient (Prasugrel). ? Insulin or diabetes pills. Please call the doctor that monitors your glucose levels. Your insulin dosage may need to be adjusted due to the diet restrictions required with this bowel preparation. (Please bring your diabetes medicines with you on the day of your procedure.) If you take aspirin, take it and ALL other medications prescribed by your doctor. On the day of your colonoscopy, take your medications with a sip of water. Five (5) Days Before Your Colonoscopy ? Do NOT take medicines that stop diarrhea - such as Imodium, Kaopectate, or Pepto Bismol. ? Do NOT take fiber supplements - such as Metamucil, Citrucel, or Perdiem. ? Do NOT take products that contain iron - such as multi- vitamins (the label lists what is in the products). ? Do NOT take Vitamin E. Buy the prescription bowel preparation solution at your local pharmacy or drugstore pharmacy. Three (3) Days Before Your Colonoscopy ? Do NOT eat high-fiber foods - such as popcorn, beans, seeds (flax, sunflower, quinoa), multigrain bread, nuts, salad/vegetables, or fresh and dried fruit. One (1) Day Before Your Colonoscopy Only drink clear liquids the ENTIRE DAY before your colonoscopy. Do NOT eat any solid foods. Drink at least 8 ounces of clear liquids every hour after waking up. The clear liquids you can drink include: ? Water, apple, or white grape juice; broth; coffee or tea (without milk or creamer); clear carbonated beverages such as loretta lisa or lemon-lovelock soda; Gatorade or other sports drinks (not red); Daniel- Aid or other flavored drinks (not red). You may eat plain jello or other gelatins (not red) or popsicles (not red). Do NOT drink alcohol on the day before or the day of the procedure. When to Mix and Drink Your Bowel Prep Follow the instructions on the label. After mixing, place the solution in the refrigerator for a couple of hours before drinking. You may add the flavor pack that came with the bowel preparation. Do NOT add ice, sugar or any flavorings to the solution. Evening Before Your Colonoscopy ? Start drinking the bowel preparation at 6 PM the evening before your colonoscopy. Drink an 8-oz glass of bowel preparation every 10 minutes. You must finish drinking the solution by 9 PM the night before your scheduled procedure. ? You may continue to drink clear liquids until midnight. Do NOT eat or drink ANYTHING after midnight the night before your procedure or your procedure may be cancelled. This is for your safety and will reduce the risk of having any food or liquid in your stomach move into your lungs (aspiration) during a procedure. If you take aspirin, take it and ALL other prescribed medicines with a sip of water on the day of your colonoscopy. Visit Notes: >> Candy Huber LPN Colleen Oct 02, 2018 3:19 PM Status: Signed REVIEW OF SYSTEMS: General: The patient denies fatigue, NOTES weight loss, denies weight gain, NOTES feeling hot, and NOTES feelings of cold. Eyes: The patient denies glaucoma, denies eye injury/surgery, does not wear glasses or contacts. Ear/Nose/Throat: The patient NOTES allergies, denies hayfever, denies ear infections, and denies bloody noses. Cardiovascular: The patient denies chest pain, denies heart disease, denies high blood pressure,denies cardiac stent, denies prior heart attack, denies irregular heart beat, denies high cholesterol, denies poor circulation, denies heart failure, other cardiac issues, denies claudication, denies cold feet, denies peripheral arterial stent. Respiratory: The patient denies tuberculosis, denies pneumonia, denies frequent cough, denies pulmonary embolism, denies shortness of breath, and denies coughing up blood. Gastrointestinal: The patient denies difficulty swallowing, NOTES acid reflux, denies ulcers, denies vomiting, denies jaundice/hepatitis, denies gallbladder problems, denies black or tarry stools, denies hemorrhoids, denies bleeding from rectum, denies diverticulitis, NOTES constipation, NOTES diarrhea, denies loss of stool control, and denies hernias. Kidney/Bladder: The patient denies kidney stones, denies urine infections, and denies bloody urine. Skin: The patient denies a history of skin cancer, denies bleeding/changing moles, and denies a history of skin rash. Neurologic: The patient denies a history of epilepsy/convulsions, denies headaches, denies head/spinal injuries, and denies stroke/TIA. Psychiatric: The patient denies psychiatric medications, denies depression, and denies voices, denies substance abuse. Endocrine: The patient denies thyroid disorders, denies diabetes, and denies hormonal problems. Hematologic: The patient denies a history of bruising, denies bleeding, and denies anemia, denies blood clots. Infections: The patient denies a history of measles and mumps, denies rheumatic fever, and denies sexually transmitted diseases. Musculoskeletal: The patient denies back pain/injury, denies back problems, denies sciatica, denies knee/foot trouble, denies arthritis, or denies gout. When was patient's last Mammogram screening? N/A Last Colonoscopy: none Candy Huber [employer] MANAGER Prescriptions ordered this encounter Disp Refills Start End PEG 3350-ELECTROLYTES 236 GRAM-22.74* 1 Daniel* 0 10/02/2018 10/02/2018 Route: ORAL Sig: Take 4,000 mL by mouth one time only for 1 dose. Refer to printed prep instructions from your doctor. CIPROFLOXACIN 500 MG TABLET 20 t* 0 10/02/2018 10/12/2018 Route: ORAL Sig: Take 1 tablet by mouth twice daily for 10 days. METRONIDAZOLE 500 MG TABLET 42 t* 0 10/02/2018 10/16/2018 Route: ORAL Sig: Take 1 tablet by mouth three times daily for 14 days. FOR 14 DAYS. Letter Text Encounter Status:Closed by MD MICHELLE VARELA on 10/04/18 HOSP Observed: 10/02/2018 Status: COMPLETED Source: [facility] 12:00 AM [facility] Patient:Shon Garner MRN: <[id number]> Height:5' 8(1.727 m) Weight:170 lb (77.111 kg) Outpatient Medications as of 10/07/18: ciprofloxacin HCl (CIPRO) 500 mg tablet metroNIDAZOLE (FLAGYL) 500 mg tablet Lactobacillus acidophilus (ACIDOPHILUS ORAL) polyethylene glycol 3350 (MIRALAX, GLYCOLAX) 17 gram/dose powder ondansetron orally disintegrating (ZOFRAN ODT) 4 mg disintegrating tablet dicyclomine (BENTYL) 20 mg tablet fluticasone (FLONASE) 50 mcg/actuation nasal spray Admission/Clinic Administered Medications as of 10/07/18: lidocaine 10 mg/mL (1 %) 1-2 mg injection (XYLOCAINE) lactated ringers infusion Problem List: Gastritis [K29.70] Hiatal hernia [K44.9] Tinnitus of both ears [H93.13] Cervicalgia [M54.2] Sigmoid diverticulitis [K57.32] Allergies: Aspirin Date Verified: 10/07/18 Lab Values Lab Value Units Date High Low POTA* 4.5 mmol/L 09/25/2018 5.1 3.7 CONNIE* 43.1 % 09/25/2018 51.0 39.0 Progress Notes ([facility]): Alfrde Joyce 10/02/2018 2:57 PM Signed 10-07-2018 Colon [place] Progress Notes ([facility]): Michelle Varela MD 10/02/2018 2:34 PM Signed How to Prepare for Your Colonoscopy Using Golytely, Nulytely, Trilyte or Colyte Preparations with General Anesthesia IMPORTANT - Read These Instructions at Least 2 Weeks Before your Colonoscopy Piña Instructions: ? Your bowel must be empty so that your doctor can clearly view your colon. Follow all of the instructions in this handout EXACTLY as they are written. If you do NOT follow the directions for when to start drinking the bowel preparation, your colonoscopy WILL be cancelled. ? Do NOT eat any solid food the ENTIRE day before your colonoscopy. ? Buy your bowel preparation at least 5 days before your colonoscopy. ? Do NOT mix the solution until the day before your colonoscopy. Designated Violin Teacher on the Day of Your Exam A responsible family member or friend MUST come with you to your colonoscopy and REMAIN in the endoscopy area until you are discharged. You are NOT ALLOWED to drive, take a taxi or bus, or leave the Endoscopy Center ALONE. If you do not have a responsible non emergency services ambulance driver (family member or friend) with you to take you home, you exam cannot be done with sedation and will be cancelled. Medications Some of the medications you take may need to be stopped or adjusted before your colonoscopy. You MUST call the doctor who ordered any of the following medicines at least 2 weeks before your colonoscopy. ? Blood thinners - such as Coumadin (warfarin), Plavix (clopidogrel), Ticlid (ticlopidine hydrochloride), Agrylin (anagrelide), Xarelto (Rivaroxaban), Pradaxa (Dabigatran), Eliquis (Apixaban), and Effient (Prasugrel). ? Insulin or diabetes pills. Please call the doctor that monitors your glucose levels. Your insulin dosage may need to be adjusted due to the diet restrictions required with this bowel preparation. (Please bring your diabetes medicines with you on the day of your procedure.) If you take aspirin, take it and ALL other medications prescribed by your doctor. On the day of your colonoscopy, take your medications with a sip of water. Five (5) Days Before Your Colonoscopy ? Do NOT take medicines that stop diarrhea - such as Imodium, Kaopectate, or Pepto Bismol. ? Do NOT take fiber supplements - such as Metamucil, Citrucel, or Perdiem. ? Do NOT take products that contain iron - such as multi-vitamins (the label lists what is in the products). ? Do NOT take Vitamin E. Buy the prescription bowel preparation solution at your local pharmacy or drugstore pharmacy. Three (3) Days Before Your Colonoscopy ? Do NOT eat high-fiber foods - such as popcorn, beans, seeds (flax, sunflower, quinoa), multigrain bread, nuts, salad/vegetables, or fresh and dried fruit. One (1) Day Before Your Colonoscopy Only drink clear liquids the ENTIRE DAY before your colonoscopy. Do NOT eat any solid foods. Drink at least 8 ounces of clear liquids every hour after waking up. The clear liquids you can drink include: ? Water, apple, or white grape juice; broth; coffee or tea (without milk or creamer); clear carbonated beverages such as loretta lisa or lemon-lovelock soda; Gatorade or other sports drinks (not red); Daniel-Aid or other flavored drinks (not red). You may eat plain jello or other gelatins (not red) or popsicles (not red). Do NOT drink alcohol on the day before or the day of the procedure. When to Mix and Drink Your Bowel Prep Follow the instructions on the label. After mixing, place the solution in the refrigerator for a couple of hours before drinking. You may add the flavor pack that came with the bowel preparation. Do NOT add ice, sugar or any flavorings to the solution. Evening Before Your Colonoscopy ? Start drinking the bowel preparation at 6 PM the evening before your colonoscopy. Drink an 8-oz glass of bowel preparation every 10 minutes. You must finish drinking the solution by 9 PM the night before your scheduled procedure. ? You may continue to drink clear liquids until midnight. Do NOT eat or drink ANYTHING after midnight the night before your procedure or your procedure may be cancelled. This is for your safety and will reduce the risk of having any food or liquid in your stomach move into your lungs (aspiration) during a procedure. If you take aspirin, take it and ALL other prescribed medicines with a sip of water on the day of your colonoscopy. Candy Huber LPN 10/02/2018 3:20 PM Signed REVIEW OF SYSTEMS: General: The patient denies fatigue, NOTES weight loss, denies weight gain, NOTES feeling hot, and NOTES feelings of cold. Eyes: The patient denies glaucoma, denies eye injury/surgery, does not wear glasses or contacts. Ear/Nose/Throat: The patient NOTES allergies, denies hayfever, denies ear infections, and denies bloody noses. Cardiovascular: The patient denies chest pain, denies heart disease, denies high blood pressure,denies cardiac stent, denies prior heart attack, denies irregular heart beat, denies high cholesterol, denies poor circulation, denies heart failure, other cardiac issues, denies claudication, denies cold feet, denies peripheral arterial stent. Respiratory: The patient denies tuberculosis, denies pneumonia, denies frequent cough, denies pulmonary embolism, denies shortness of breath, and denies coughing up blood. Gastrointestinal: The patient denies difficulty swallowing, NOTES acid reflux, denies ulcers, denies vomiting, denies jaundice/hepatitis, denies gallbladder problems, denies black or tarry stools, denies hemorrhoids, denies bleeding from rectum, denies diverticulitis, NOTES constipation, NOTES diarrhea, denies loss of stool control, and denies hernias. Kidney/Bladder: The patient denies kidney stones, denies urine infections, and denies bloody urine. Skin: The patient denies a history of skin cancer, denies bleeding/changing moles, and denies a history of skin rash. Neurologic: The patient denies a history of epilepsy/convulsions, denies headaches, denies head/spinal injuries, and denies stroke/TIA. Psychiatric: The patient denies psychiatric medications, denies depression, and denies voices, denies substance abuse. Endocrine: The patient denies thyroid disorders, denies diabetes, and denies hormonal problems. Hematologic: The patient denies a history of bruising, denies bleeding, and denies anemia, denies blood clots. Infections: The patient denies a history of measles and mumps, denies rheumatic fever, and denies sexually transmitted diseases. Musculoskeletal: The patient denies back pain/injury, denies back problems, denies sciatica, denies knee/foot trouble, denies arthritis, or denies gout. When was patient's last Mammogram screening? N/A Last Colonoscopy: none Candy Varela MD 10/04/2018 11:42 AM Signed Shon Garner 1990 REFERRING PHYSICIAN: Abran Winston MD CHIEF COMPLAINT: Diverticulitis HPI: The patient is a pleasant 28 year old male who presents with recurrent chronic diverticulitis. He states that he had an episode of diverticulitis about 2 years ago. He was given antibiotics and his symptoms of abdominal pain resolved and he recovered well. About a year and a half later, he had another episode, he was again treated with antibiotics and his symptoms abated. Most recently, more than a month ago, he developed symptoms again. He was empirically treated with oral antibiotics, but this time, he did not improve. He was eventually admitted to the hospital and placed on IV antibiotics and he noted improvement. He was discharged on oral antibiotics, but then noted return of crampy abdominal discomfort and frequent loose bowel movements. He denies outright abdominal pain, but he states that he does not feel right. He notes 5-6 loose bowel movements per day, many times with mucus, with crampy lower abdominal discomfort, also with incomplete sensation of emptying and fecal urgency. Denies fevers. Notes slight blood in stools. Also decreased appetite with 20# weight loss with this episode. Also complains of increased abdominal gas. He has tried a low fiber diet, and also use of probiotics, eating yogurt. There was concern that he may have inflammatory bowel disease because of his symptoms of diarrhea and blood in stools - he was scheduled for colonoscopy October 07, 2018. He had presented to ED at [facility] on with the above complaints. He was concerned about worsening his condition PAST MEDICAL HISTORY Diagnosis Date - Chronic sinusitis 1999 - Colitis, acute 08/30/2016 - Diverticulitis of sigmoid colon 04/17/2018 - Gastritis 2007 - Hiatal hernia 2007 PAST SURGICAL HISTORY Procedure Laterality Date - EGD 2007 [place] Current Outpatient Prescriptions: ciprofloxacin HCl (CIPRO) 500 mg tablet Take 1 tablet by mouth twice daily for 10 days. metroNIDAZOLE (FLAGYL) 500 mg tablet Take 1 tablet by mouth three times daily for 14 days. FOR 14 DAYS. Lactobacillus acidophilus (ACIDOPHILUS ORAL) Take 1 capsule by mouth once daily. polyethylene glycol 3350 (MIRALAX, GLYCOLAX) 17 gram/dose powder Take 17 g by mouth as needed. ondansetron orally disintegrating (ZOFRAN ODT) 4 mg disintegrating tablet Take 1 tablet by mouth every 8 hours as needed for Nausea/Vomiting. dicyclomine (BENTYL) 20 mg tablet Take 1 tablet by mouth three times daily as needed (abdominal pain). fluticasone (FLONASE) 50 mcg/actuation nasal spray Use 2 Sprays in each nostril once daily. Rinse mouth after use. ALLERGIES: Aspirin PERSONAL HISTORY: Social History Marital status: Single Spouse name: Years of education: Number of children: 1 Occupational History Occupation Employer Comment community nurse Social History Main Topics Smoking status: Never Smoker Smokeless tobacco: Never Used Alcohol use: Yes Comment: 1 beverage per month Drug use: No Sexual activity: Yes Partners with: Female Other Topics Concern Caffeine Concern Not Asked Comment:2-3 beverages daily Social History Narrative Grew up in [place]. Graduate of [employer]. FAMILY HISTORY Problem Relation Age of Onset - Heart Father [place] @ 64 years, living - Diabetes Father - Hypertension Father - Diabetes Maternal Grandmother - Heart Maternal Grandfather d/t [place] @ 48 years - Heart Paternal Uncle - Heart Paternal Uncle - Heart Paternal Uncle - Heart disease Brother - Hyperlipidemia Brother REVIEW OF SYSTEMS: General: The patient denies fatigue, NOTES weight loss, denies weight gain, NOTES feeling hot, and NOTES feelings of cold. Eyes: The patient denies glaucoma, denies eye injury/surgery, does not wear glasses or contacts. Ear/Nose/Throat: The patient NOTES allergies, denies hayfever, denies ear infections, and denies bloody noses. Cardiovascular: The patient denies chest pain, denies heart disease, denies high blood pressure,denies cardiac stent, denies prior heart attack, denies irregular heart beat, denies high cholesterol, denies poor circulation, denies heart failure, other cardiac issues, denies claudication, denies cold feet, denies peripheral arterial stent. Respiratory: The patient denies tuberculosis, denies pneumonia, denies frequent cough, denies pulmonary embolism, denies shortness of breath, and denies coughing up blood. Gastrointestinal: The patient denies difficulty swallowing, NOTES acid reflux, denies ulcers, denies vomiting, denies jaundice/hepatitis, denies gallbladder problems, denies black or tarry stools, denies hemorrhoids, denies bleeding from rectum, denies diverticulitis, NOTES constipation, NOTES diarrhea, denies loss of stool control, and denies hernias. Kidney/Bladder: The patient denies kidney stones, denies urine infections, and denies bloody urine. Skin: The patient denies a history of skin cancer, denies bleeding/changing moles, and denies a history of skin rash. Neurologic: The patient denies a history of epilepsy/convulsions, denies headaches, denies head/spinal injuries, and denies stroke/TIA. Psychiatric: The patient denies psychiatric medications, denies depression, and denies voices, denies substance abuse. Endocrine: The patient denies thyroid disorders, denies diabetes, and denies hormonal problems. Hematologic: The patient denies a history of bruising, denies bleeding, and denies anemia, denies blood clots. Infections: The patient denies a history of measles and mumps, denies rheumatic fever, and denies sexually transmitted diseases. Musculoskeletal: The patient denies back pain/injury, denies back problems, denies sciatica, denies knee/foot trouble, denies arthritis, or denies gout. PHYSICAL EXAMINATION: General: The patient is 28 year old male, well nourished, well hydrated in no acute distress. The patient is oriented to time, place, and person. VITALS: Blood pressure 138/64, pulse 80, weight 79.4 kg (175 lb). Body mass index is 26.22 kg/m?. Head ? Normocephalic. EOM intact with sclera clear and no icterus noted. Mouth with mucus membranes moist. Neck - supple with no jugular venous distention noted. Trachea is midline. Lungs ? clear to auscultation. Normal breath sounds in all lung canseco. No rales/rhonchi/wheezing noted. No labored breathing noted, such as retractions. Heart ? normal S1 and S2 auscultated. No rubs/clicks/murmurs noted. Regular rate. Abdomen ? soft and benign but tender in suprapubic area and left lower quadrant, no peritoneal signs noted. Normal bowel sounds. No abdominal bruits noted. Extremities ? no calf tenderness or swelling noted. No pitting edema noted. No obvious deformity noted. Skin ? normal skin integrity. Neurological ? gait normal, no focal deficits noted Psych ? calm and appropriate RADIOLOGIC STUDIES: As Noted Assessment IMPRESSION: chronic diverticulitis PLAN: I have discussed the above with the patient. I have explained the disease process of diverticulosis and diverticulitis with him. He seems to have an ongoing smoldering case of diverticulitis and I would recommend that he continue on antibiotics. I have offered a colonoscopy for evaluation, possible biopsies. I have explained the procedure to the patient. I have counseled the patient as to the risks of the procedure, including but not limited to: infection, bleeding, injury to any intraabdominal organs such as liver/spleen, perforation of the GI tract, inability to complete the procedure, complications of anesthesia, etc. -? the patient understands. I have also discussed surgical resection with the patient, as his diverticulitis does not seem to be greatly improved with antibiotics. He states that he has a better understanding of this disease process and wishes to proceed with the above. I have answered all questions to the patient?s satisfaction and the patient has no further questions. . Diagnoses: (K57.32) Diverticulitis of large intestine without perforation or abscess without bleeding (primary encounter diagnosis) (R10.30) Lower abdominal pain Return to Clinic: The patient is instructed to follow-up with me after the procedure. Michelle Varela MD EMERGENCY DEPARTMENT Observed: 10/01/2018 Status: F Source: [place] SUMMARY 4:02 PM [facility] Medical Records Department [address] [place] [address] Emergency Department Summary 10/01/18 1333 MR#: [id number] Acct: [id number] Name: SHON GARNER Rep #: [id number] : 1990 28 From: Karthikeyan Samaniego MD PCP: Abran Winston MD Status: DEP ER - ER Visit Summary Date of Service: 10/01/18 Chief Complaint: Abdominal pain History of Present Illness: The patient is a 28 M with lower abdominal pain that has been going on for weeks. He was previously diagnosed and treated for diverticulitis. He was seen a couple weeks ago. He was diagnosed with diverticulitis on CT and treated with Cipro and Flagyl. He was sent home and then came back the next day for worsening symptoms. He had a repeat CT which showed worsening diverticulitis. He was admitted for IV antibiotics. He subsequently went home and completed his antibiotics. He was on an additional round of antibiotics. His doctor got an outpatient CBC that showed a white count of 18,000. He was notified today that he had an elevated white count and came in for continued pain and mucus in his stool. Physical Examination: Afebrile and vital signs unremarkable. Heart regular. Lungs clear. Abdomen is tender in the left lower quadrant. No guarding or rebound. Skin appears normal. Test Results: White count 13.6 and platelets 480. CMP and lipase normal. Urinalysis unremarkable. Emergency Department Course and Treatment: I spoke with the patient's PCP. He was concerned about the persistent symptoms as well as the white count of 18,000. I also spoke with Dr. Varela. The patient has been seen by Dr. Webb and is planning to follow-up in the office tomorrow. I advised that his white count is much improved. He does have some abdominal pain, but no guarding or rebound. Vital signs are acceptable. I believe the patient is appropriate for outpatient follow-up. He has been on Cipro and Flagyl. Will cover with Augmentin. Patient has follow-up tomorrow. He will likely need endoscopy and is scheduled for colonoscopy and EGD on October 09. I am hesitant to order another CT based on his exam, vitals, and labs. He has had 3 in the past 6 months. I do not believe he needs inpatient care. Treatment Plan: As above Disposition: Discharge Impression: 1. Abdominal pain This note was generated with Intronisation software. It may contain incorrect words, spelling, and punctuation that were not noted in review of the chart prior to signing ED Disposition - Plan for ED Patient: Chief Complaint: Abd Pain Referrals: Abran Winston MD [Primary Care Provider] - What to do if you have Problems For any increased pain, shortness of breath, bleeding, nausea or vomiting, chest pain, or any unexpected problems, contact your Primary Care Provider. Call [facility] ([phone]) or report to the closest Emergency Room. Call 911 if necessary. 10/01/181601 <Electronically signed by Karthikeyan Samaniego MD> Date Karthikeyan Samaniego MD Cosigner Signature (If Indicated): Date CC: Abran Winston MD DISCHARGE INSTRUCTION Observed: 10/01/2018 Status: F Source: [place] 4:02 PM [facility] Medical Records Department [address] [place] [id number] Discharge Instruction 10/01/18 1336 MR#: [id number] Acct: [id number] Name: SHON GARNER Rep #: [id number] : 1990 28 From: Karthikeyan Samaniego MD PCP: Abran Winston MD Status: [facility] ER ED Disposition - Plan for ED Patient: Chief Complaint: Abd Pain Instructions: ED Abdominal Pain Unkn Cause Prescriptions: Amox/Clavulanate Tablet [Augmentin Tablet] 875 mg PO Q12H 10 Days #20 tab Referrals: Abran Winston MD [Primary Care Provider] - What to do if you have Problems For any increased pain, shortness of breath, bleeding, nausea or vomiting, chest pain, or any unexpected problems, contact your Primary Care Provider. Call [facility] ([phone]) or report to the closest Emergency Room. Call 911 if necessary. 10/01/18 160 <Electronically signed by Karthikeyan Samaniego MD> Date Karthikeyan Samaniego MD Cosigner Signature (If Indicated): Date CC: Abran Winston MD URINALYSIS, COMPLETE Collected: 10/01/2018 Status: F Source: [place] 11:45 AM [facility] Order Comment: Order Date: 10/01/18 How was Urine Obtained? CLEAN CATCH TYPE CODE TESTS RESULT OUT OF RANGE REFERENCE UNITS LAB L400.3000 Yellow COLOR Normal Yellow LAB L400.3050 Clear Normal CLARITY Sl. Cloudy LAB L400.3200 Normal mg/dl Normal GLUCOSE, UR Normal LAB L400.3300 Negative mg/dL Normal BILIRUBIN URINE Negative LAB L400.3400 Negative mg/dl High 50 KETONE UR LAB L400.3465 1.002-1.030 Normal SP.GR. DIPSTX 1.010 LAB L400.3550 5.0 - 8.0 pH UR Normal 7.0 LAB L400.3600 Negative mg/dl PROT Normal DIPSTX Negative LAB L400.3700 Normal mg/dl Normal UROBILI Normal LAB L400.3750 Negative Normal NITRITE UR Negative LAB L400.3780 Negative /ul Normal OCCULT BLOOD-UR Negative LAB L400.3800 Negative /ul High LEUK 25 ESTERASE LAB L400.4050 0-5 /hpf WBC Normal 0-5 SEEN LAB L400.4100 0-5 /hpf 0 Normal RBC-UA SEEN LAB L400.4150 0-5 /hpf SQUAM Normal EPI 0-5 SEEN LAB L400.4300 None Seen /hpf 0 Normal BACTERIA SEEN LAB L400.4350 <or=2+ /hpf 0 Normal MUCUS, URINE SEEN Performed By: #### L400.0001 #### [facility] [address] [place], [place], [id number] CBC W/DIFF, AUTOMATED Collected: 10/01/2018 Status: F Source: [place] 11:10 AM [facility] TYPE CODE TESTS RESULT OUT OF RANGE REFERENCE UNITS LAB L100.1000 4.4-11.0 K/mm3 High WBC 13.6 LAB L100.1200 4.6-6.2 M/mm3 Normal RBC 4.99 LAB L100.1300 13.0-16.5 g/dl Normal HGB 13.7 LAB L100.1400 40-54 % Normal HCT 41.6 LAB L100.1500 80-94 fL Normal MCV 83.4 LAB L100.1600 27.0-32.0 pg Normal MCH 27.5 LAB L100.1700 32-36 g/gl Normal MCHC 32.9 LAB L100.1810 11.6-14.6 % Normal RDW CV 13.3 LAB L100.1820 35.1-43.9 fl Normal RDW SD 40.1 LAB L100.1900 150-450 K/mm3 High PLT 480 LAB L100.2000 6.2-12.0 fl Normal MPV 8.9 LAB L100.2100 47-70 % High NEUT% 82.5 LAB L100.2200 19-41 % Low LY% 7.8 LAB L100.2300 0-10 % Normal MONO% 9.0 LAB L100.2400 0-5 % Normal EO% 0.2 LAB L100.2500 0-1 % Normal BASO% 0.2 LAB L100.2550 0.0-0.9 % Normal IM GRAN % 0.300 Result Comment: IG% - Immature Granulocytes (promyelocytes, myelocytes and metamyelocytes) > 1% indicates that a LEFT SHIFT is Present. LAB L100.2620 2.0-7.7 X10 3/uL High Absolute Neut 11.2 LAB L100.2720 0.83-4.51 X10 3/ul Normal Absolute Lymph 1.06 Performed By: #### L100.0100 #### [facility] [address] [place], [address] COMPREHENSIVE METABOLIC Collected: 10/01/2018 Status: F Source: [facility] 11:10 AM [facility] TYPE CODE TESTS RESULT OUT OF RANGE REFERENCE UNITS LAB L501.0100 74-106 mg/dL Normal GLU 103 Result Comment: Fasting Glucose result from 100 to 125 mg/dL suggests IMPAIRED HOMEOSTASIS per A.D.A. criteria. Please note revised GLUCOSE reference range effective 2017. LAB L501.1000 7-18 mg/dL Low BUN 5 LAB L501.1100 0.70-1.30 mg/dL Normal CREAT,SERUM 1.02 Result Comment: The validity of the calculated GFR AND GFRAA in patients over 70 years has not been determined. Clinical correlation is essential. LAB L501.1110 >60 mL/min Normal EST GFR 93 Result Comment: Non- GFR Calc LAB L501.1115 >60 mL/min Normal EST GFR - AA 113 Result Comment: GFR Calc LAB L501.1255 ml/min Normal Estimated CRCL 105.25 LAB L501.1300 10-20 RATIO Low BUN/CRE 4.9 LAB L501.1500 6.4-8. g/dL 2 T PROT Normal 8.1 LAB L501.1800 3.2-5. g/dL 0 ALB Normal 3.4 LAB L501.1950 2.2-4. g/dL High 2 GLOB 4.7 LAB L501.2000 0.9-2. RATIO Low 4 A/G 0.7 LAB L501.2200 8.5-10 mg/dL .1 CA Normal 9.2 LAB L501.4100 15-37 U/L AST Normal 17 LAB L501.4305 45-117 U/L ALK P Normal 75 LAB L501.4405 16-61 U/L ALT Normal 21 LAB L501.4600 0.20-1 mg/dL .00 T BILI Normal 0.30 LAB L501.5300 136-14 mmol/L 5 NA Normal 138 LAB L501.5600 3.5-5. mmol/L 1 K Normal 4.2 LAB L501.5900 98-107 mmol/L CL Normal 101 LAB L501.6100 21.0-3 mmol/L 2.0 CO2 Normal 29.0 LAB L501.6200 5-15 GAP Normal 8 Performed By: #### L500.4050, L501.2450 #### [facility] [address] [place], [address] LIPASE Collected: 10/01/2018 Status: F Source: [place] 11:10 AM [facility] [place] TYPE CODE TESTS RESULT OUT OF RANGE REFERENCE UNITS LAB L501.2450 73-393 U/L Normal LIPASE 86 Performed By: #### L500.4050, L501.2450 #### [facility] [address] [place], [address] PROGRESS Observed: 09/25/2018 Status: COMPLETED Source: [place] 1:33 PM [facility] REPOSITORY HNO ID: [id number] Author: Abran Winston Service: (none) Author Type: Physician Type: Progress Notes Filed: 09/25/2018 1:46 PM Note Text: This note was created using NoteWriter. Subjective Patient presents with: Hospital F/U: Encounter done with american translation service Shon Garner was admitted - for sepsis secondary to sigmoid diverticulitis. He was seen in the ED and treated outpatient with Cipro and Flagyl. He got worsening abdominal pains and was admitted. He improved with IV fluids and IV antibiotics and discharged on Cipro and Flagyl. He was feeling better overall, with residual lower abdominal pain, cramps, left lower back pain, but no fever. He returned to work yesterday but felt weak. He was following a low fiber diet. He was seen by Dr. Coello in the hospital and there was discussion about colonoscopy. For unclear reasons, his appointment with Dr. Coello was canceled, possibly because patient was also scheduled for EGD with [facility] equipment sterilizer in [place] from a referral made in July. This is the third bout of diverticulitis or colitis for Shon in two years. ACTIVE PROBLEM LIST Gastritis Hiatal Hernia Tinnitus of Both Ears Cervicalgia Current Outpatient Prescriptions: ciprofloxacin HCl (CIPRO) 500 mg tablet Take 1 tablet by mouth twice daily for 5 days. dicyclomine (BENTYL) 20 mg tablet Take 1 tablet by mouth three times daily as needed (abdominal pain). fluticasone (FLONASE) 50 mcg/actuation nasal spray Use 2 Sprays in each nostril once daily. Rinse mouth after use. Lactobacillus acidophilus (ACIDOPHILUS ORAL) Take 1 capsule by mouth once daily. metroNIDAZOLE (FLAGYL) 500 mg tablet Take 1 tablet by mouth three times daily for 5 days. polyethylene glycol 3350 (MIRALAX, GLYCOLAX) 17 gram/dose powder Take 17 g by mouth as needed. ondansetron orally disintegrating (ZOFRAN ODT) 4 mg disintegrating tablet Take 1 tablet by mouth every 8 hours as needed for Nausea/Vomiting. No current facility-administered medications for this visit. Review of Systems Constitutional: Positive for appetite change and fatigue. Negative for chills, diaphoresis and fever. Respiratory: Negative. Cardiovascular: Negative. Gastrointestinal: Positive for abdominal pain and nausea. Negative for blood in stool and vomiting. Genitourinary: Negative. Musculoskeletal: Negative for back pain. Objective BP 116/70 (BP Site: Right Arm, BP Position: Sitting, BP Cuff Size: Regular Adult) Pulse 76 Temp 37.3 ?C (99.2 ?F) (Left Tympanic) Resp 12 Wt 80.2 kg (176 lb 12.8 oz) BMI 26.49 kg/m? Physical Exam Constitutional: No distress. Eyes: Conjunctivae are normal. No scleral icterus. Neck: Neck supple. Cardiovascular: Normal heart sounds. Pulmonary/Chest: Breath sounds normal. Abdominal: Soft. Bowel sounds are normal. He exhibits no distension. There is tenderness in the suprapubic area and left lower quadrant. There is no rebound and no guarding. No hernia. Musculoskeletal: He exhibits no edema. Lymphadenopathy: He has no cervical adenopathy. Neurological: He is alert. Skin: He is not diaphoretic. Assessment and Plan 1. Sigmoid diverticulitis - ICD9: 562.11, ICD10: K57.32 Recurrent. Patient with residual symptoms. Extend antibiotic for 5 more days. Low fiber diet with increased liquids. I think it is better for him to see surgery for follow up, aside from the fact that endoscopies can be done locally as well. - ACIDOPHILUS ORAL - METRONIDAZOLE 500 MG TABLET - CIPROFLOXACIN 500 MG TABLET - POLYETHYLENE GLYCOL 3350 17 GRAM/DOSE ORAL POWDER - CBC + DIFF - SED RATE WESTERGREN - COMP METABOLIC PANEL - CIPROFLOXACIN 500 MG TABLET - METRONIDAZOLE 500 MG TABLET - CONSULT TO GENERAL SURGERY - ONDANSETRON 4 MG DISINTEGRATING TABLET 1. I have reviewed the patient record including associated test results during the last hospitalization Yes 2. I have reviewed Lab tests Yes 3. I have reviewed Radiology tests Yes 4. I have reviewed Assessment/Plan with patient/family member Yes Abran Winston MD SED RATE WESTERGREN Collected: 09/25/2018 Status: F Source: [place] 12:[address] [facility] REPOSITORY TYPE CODE TESTS RESULT OUT OF REFERENCE UNITS RANGE LAB WSR 0-15 mm/hr Sed Rate High [place] 53 Performed By: #### WSR, CMP, CBCDIF #### [facility] [address] [place], [place] [address] COMP METABOLIC PANEL Collected: 09/25/2018 Status: F Source: [place] 12:[address] [facility] REPOSITORY TYPE CODE TESTS RESULT OUT OF REFERENCE UNITS RANGE LAB TP 6.3-8.0 g/dL Protein, Total 8.0 LAB ALB 3.9-4.9 g/dL Albumin 4.0 LAB CA 8.5-10.2 mg/dL Calcium, Total 9.6 LAB TBIL 0.2-1.3 mg/dL Bilirubin, Total 0.4 LAB ALKP 38-113 U/L Alkaline Phosphatase 83 LAB AST 14-40 U/L AST 30 LAB GLU 74-99 mg/dL Glucose 94 Result Comment: The [place] Diabetes Association (ADA) provides guidance for cutoff values for fasting glucose and random glucose. The ADA defines fasting as no caloric intake for at least 8 hours. Fas ting plasma glucose results between 100 to 125 mg/dL indicate increased risk for diabetes (prediabetes). Fasting plasma glucose results greater than or equal to 126 mg/dL meet the criteria for diagnosis of diabetes. In the absence of unequivocal hyperglycemia, results should be confirmed by repeat testing. In a patient with classic symptoms of hyperglycemia or hyperglycemic crisis, random plasma glucose results greater than or equal to 200 mg/dL meet the criteria for diagnosis of diabetes. Reference: Standards of Medical Care in Diabetes 2016, [place] Diabetes Association. Diabetes Care. 2016.39(Suppl 1). LAB BUN 9-24 mg/dL BUN Low 7 LAB CRET 0.73-1.22 mg/dL Creatinine 1.03 LAB NA 136-144 mmol/L Sodium 136 LAB K 3.7-5.1 mmol/L Potassium 4.5 LAB CL 97-105 mmol/L Chloride 97 LAB CO2 22-30 mmol/L CO2 25 LAB AGAP 9-18 mmol/L Anion Gap 14 LAB ALT 10-54 U/L ALT 26 LAB GFRAA eGFR- Amer. >60 LAB GFRNAA . eGFR-All Other Races >60 Result Comment: eGFR (Estimated GFR) Units of measure: mL/min/1.73 meters squared eGFR is derived from the reexpressed MDRD Study equation using the following parameters: serum creatinine, age, gender and race. The creatinine assay has been calibrated to be traceable to IDPA. An eGFR <60 mL/min/1.73m2 for >3 months is consistent with chronic kidney disease. Refer to KDOQI guidelines for clinical interpretation. In patients with unstable renal function, e.g. those with acute kidney injury, the eGFR may not accurately reflect actual GFR. Performed By: #### WSR, CMP, CBCDIF #### [facility] [address] [place] [address], [place] [address] CBC AND DIFFERENTIAL Collected: 09/25/2018 Status: F Source: [place] 12:[address] [facility] REPOSITORY TYPE CODE TESTS RESULT OUT OF REFERENCE UNITS RANGE LAB WBC 3.70-11.00 k/uL WBC High 18.47 LAB RBC 4.20-6.00 m/uL RBC 5.01 LAB HGB 13.0-17.0 g/dL Hemoglobin 13.8 LAB HCT 39.0-51.0 % Hematocrit 43.1 LAB MCV 80.0-100.0 fL MCV 86.0 LAB MCH 26.0-34.0 pG MCH 27.5 LAB MCHC 30.5-36.0 g/dL MCHC 32.0 LAB RDWCV 11.5-15.0 % RDW-CV 12.9 LAB PLTCT 150-400 k/uL Platelet High Count 472 LAB MPV 9.0-12.7 fL MPV 9.6 LAB ANEUT % Neut% 84.5 LAB AANEUT 1.45-7.50 k/uL Abs Neut High 15.61 LAB ALYMP % Lymph% 5.2 LAB AALYMP 1.00-4.00 k/uL Abs Low Lymph 0.96 LAB AMONO % [place]% 10.3 LAB AAMONO <0.87 k/uL Abs [place] High 1.90 LAB AEOS % Eosin% 0.0 LAB AAEOS <0.46 k/uL Abs Eosin 0.00 LAB ABASO % Baso% 0.0 LAB AABASO <0.11 k/uL Abs Baso 0.00 LAB RBCMOR Red Cell Morph SEE COMMENT Result Comment: Unremarkable LAB PLTEST Platelet Platelet Estimate estimate increased LAB DTYP DTYPE Manual Diff Performed By: #### WSR, CMP, CBCDIF #### [facility] [address] [place], [place] [address] CNOV Observed: 09/25/2018 Status: COMPLETED Source: [place] 9:40 AM [facility] REPOSITORY Office Visit (INTMWS) SHON GARNER ([id number]) 1990 M [facility] Date Time Provider Department 09/25/18 9:40 AM ABRAN WINSTON INTMWS During your visit today, we recorded the following information about you: Temperature Pulse Respiration Blood pressure 99.2 degrees 76/minute 12/minute 116/70 Weight 80.2 kg Mckenna Puente LPN 09/25/2018 11:06 AM Signed Transitional Care Management Progress Note The patients TCM visit was performed within the 7 days of discharge. TCM Eligibility Documentation The following information was gathered during the initial Patient Outreach Encounter. Date of Outreach: 09/24/2018 Outreach Attempt 1: (No Data) Date of Discharge 09/20/2018 Some recent data might be hidden If no data exists please enter it manually. If data exists please delete date of discharge and date of initial contact seen below. Patient's Date of discharge: 09/20/2018 Date of initial coordinator contact after discharge: 09/24/2018 Discharge diagnosis: Sigmoid Diverticulitis (Chronic), Sepsis (Chronic) Medication review completed Yes Mckenna Puente LPN Provider Documentation: In follow-up of hospitalization, Shon Garner is a 28 year old male with the chief complaint of n/a I have reviewed the patient?s last hospital course including diagnostic testing performed during this hospitalization, their discharge medications, and my assessment and plan with the patient and any family members present at today?s visit. Abran Winston MD 09/25/2018 1:46 PM Signed This note was created using [employer]. Subjective Patient presents with: Hospital F/U: Encounter done with american translation service Shon Garner was admitted for sepsis secondary to sigmoid diverticulitis. He was seen in the ED and treated outpatient with Cipro and Flagyl. He got worsening abdominal pains and was admitted. He improved with IV fluids and IV antibiotics and discharged on Cipro and Flagyl. He was feeling better overall, with residual lower abdominal pain, cramps, left lower back pain, but no fever. He returned to work yesterday but felt weak. He was following a low fiber diet. He was seen by Dr. Coello in the hospital and there was discussion about colonoscopy. For unclear reasons, his appointment with Dr. Coello was canceled, possibly because patient was also scheduled for EGD with [facility] equipment sterilizer in [place] from a referral made in July. This is the third bout of diverticulitis or colitis for Shon in two years. ACTIVE PROBLEM LIST Gastritis Hiatal Hernia Tinnitus of Both Ears Cervicalgia Current Outpatient Prescriptions: ciprofloxacin HCl (CIPRO) 500 mg tablet Take 1 tablet by mouth twice daily for 5 days. dicyclomine (BENTYL) 20 mg tablet Take 1 tablet by mouth three times daily as needed (abdominal pain). fluticasone (FLONASE) 50 mcg/actuation nasal spray Use 2 Sprays in each nostril once daily. Rinse mouth after use. Lactobacillus acidophilus (ACIDOPHILUS ORAL) Take 1 capsule by mouth once daily. metroNIDAZOLE (FLAGYL) 500 mg tablet Take 1 tablet by mouth three times daily for 5 days. polyethylene glycol 3350 (MIRALAX, GLYCOLAX) 17 gram/dose powder Take 17 g by mouth as needed. ondansetron orally disintegrating (ZOFRAN ODT) 4 mg disintegrating tablet Take 1 tablet by mouth every 8 hours as needed for Nausea/Vomiting. No current facility-administered medications for this visit. Review of Systems Constitutional: Positive for appetite change and fatigue. Negative for chills, diaphoresis and fever. Respiratory: Negative. Cardiovascular: Negative. Gastrointestinal: Positive for abdominal pain and nausea. Negative for blood in stool and vomiting. Genitourinary: Negative. Musculoskeletal: Negative for back pain. Objective BP 116/70 (BP Site: Right Arm, BP Position: Sitting, BP Cuff Size: Regular Adult) Pulse 76 Temp 37.3 ?C (99.2 ?F) (Left Tympanic) Resp 12 Wt 80.2 kg (176 lb 12.8 oz) BMI 26.49 kg/m? Physical Exam Constitutional: No distress. Eyes: Conjunctivae are normal. No scleral icterus. Neck: Neck supple. Cardiovascular: Normal heart sounds. Pulmonary/Chest: Breath sounds normal. Abdominal: Soft. Bowel sounds are normal. He exhibits no distension. There is tenderness in the suprapubic area and left lower quadrant. There is no rebound and no guarding. No hernia. Musculoskeletal: He exhibits no edema. Lymphadenopathy: He has no cervical adenopathy. Neurological: He is alert. Skin: He is not diaphoretic. Assessment and Plan 1. Sigmoid diverticulitis - ICD9: 562.11, ICD10: K57.32 Recurrent. Patient with residual symptoms. Extend antibiotic for 5 more days. Low fiber diet with increased liquids. I think it is better for him to see surgery for follow up, aside from the fact that endoscopies can be done locally as well. - ACIDOPHILUS ORAL - METRONIDAZOLE 500 MG TABLET - CIPROFLOXACIN 500 MG TABLET - POLYETHYLENE GLYCOL 3350 17 GRAM/DOSE ORAL POWDER - CBC + DIFF - SED RATE WESTERGREN - COMP METABOLIC PANEL - CIPROFLOXACIN 500 MG TABLET - METRONIDAZOLE 500 MG TABLET - CONSULT TO GENERAL SURGERY - ONDANSETRON 4 MG DISINTEGRATING TABLET 1. I have reviewed the patient record including associated test results during the last hospitalization Yes 2. I have reviewed Lab tests Yes 3. I have reviewed Radiology tests Yes 4. I have reviewed Assessment/Plan with patient/family member Yes Abran Winston MD Referring Provider: SELF [200] Allergies As of Date: 09/25/2018 Noted Allergy Reaction ASPIRIN 08/30/2016 7 - Swelling Comments: Eye swelling. NSAID okay. Date Reviewed: 09/25/2018 Reviewed by: Mckenna Puente LPN - Fully Assessed Reason for Visit: Hospital F/U [57] Cmt: Encounter done with american translation service Reason For Visit History Recorded Primary Visit Diagnosis:Sigmoid diverticulitis [K57.32] Order(s):CBC + DIFF [SQCBCDIF] Order #: [id number] FUTURE SED RATE WESTERGREN [SQWSR] Order #: [id number] FUTURE COMP METABOLIC PANEL [SQCMP] Order #: [id number] FUTURE ciprofloxacin HCl (CIPRO) 500 mg tabletTake 1 tablet by mouth twice daily for 5 days.Disp: 10 tabletRfl: 0 metroNIDAZOLE (FLAGYL) 500 mg tabletTake 1 tablet by mouth three times daily for 5 days.Disp: 15 tabletRfl: 0 CONSULT TO GENERAL SURGERY [9003] Order #: [id number]: 1 ondansetron orally disintegrating (ZOFRAN ODT) 4 mg disintegrating tabletTake 1 tablet by mouth every 8 hours as needed for Nausea/Vomiting.Disp: 21 tabletRfl: 0 Prescriptions as of 09/25/2018 Sig: CIPROFLOXACIN 500 MG TABLET Take 1 tablet by mouth twice * DICYCLOMINE 20 MG TABLET Take 1 tablet by mouth three * FLUTICASONE 50 MCG/ACTUATION * Use 2 Sprays in each nostril * ACIDOPHILUS ORAL Take 1 capsule by mouth once * METRONIDAZOLE 500 MG TABLET Take 1 tablet by mouth three * POLYETHYLENE GLYCOL 3350 17 G* Take 17 g by mouth as needed. ONDANSETRON 4 MG DISINTEGRATI* Take 1 tablet by mouth every * Medication notes this encounter FLUTICASONE 50 MCG/ACTUATION NASAL SPRAY,SUSPENSION >> Mckenna Puente LPN 09/25/2018 10:42 AM >> MCKENNA PUENTE LPN [facility] Sep 25, 2018 10:42 AM Patient using PRN Problem List As Of Date 09/25/2018 Noted Resolved Gastritis [K29.70] Hiatal hernia [K44.9] Tinnitus of both ears [H93.13] INVALID FOR* Cervicalgia [M54.2] INVALID FOR* Sigmoid diverticulitis [K57.32] INVALID FOR* Visit Notes: >> Mckenna Puente LPN [facility] Sep 25, 2018 10:48 AM Status: Signed Transitional Care Management Progress Note The patients TCM visit was performed within the 7 days of discharge. TCM Eligibility Documentation The following information was gathered during the initial Patient Outreach Encounter. Date of Outreach: 09/24/2018 Outreach Attempt 1: (No Data) Date of Discharge 09/20/2018 Some recent data might be hidden If no data exists please enter it manually. If data exists please delete date of discharge and date of initial contact seen below. Patient's Date of discharge: 09/20/2018 Date of initial coordinator contact after discharge: 09/24/2018 Discharge diagnosis: Sigmoid Diverticulitis (Chronic), Sepsis (Chronic) Medication review completed Yes Mckenna Puente LPN Provider Documentation: In follow-up of hospitalization, Shon Garner is a 28 year old male with the chief complaint of n/a I have reviewed the patient?s last hospital course including diagnostic testing performed during this hospitalization, their discharge medications, and my assessment and plan with the patient and any family members present at today?s visit. Prescriptions ordered this encounter Disp Refills Start End CIPROFLOXACIN 500 MG TABLET 10 t* 0 09/25/2018 09/30/2018 Route: ORAL Sig: Take 1 tablet by mouth twice daily for 5 days. METRONIDAZOLE 500 MG TABLET 15 t* 0 09/25/2018 09/30/2018 Route: ORAL Sig: Take 1 tablet by mouth three times daily for 5 days. ONDANSETRON 4 MG DISINTEGRATING TABL* 21 t* 0 09/25/2018 Route: ORAL Sig: Take 1 tablet by mouth every 8 hours as needed for Nausea/Vomiting. Medications Discontinued During This Encounter ciprofloxacin HCl (CIPRO) 500 mg tab* 09/25/2018 Class: Historical Med Route: ORAL Sig: Take 500 mg by mouth twice daily. Disc: Reason for discontinue is not on file. metroNIDAZOLE (FLAGYL) 500 mg tablet 09/25/2018 Class: Historical Med Route: ORAL Sig: Take 500 mg by mouth three times daily. Disc: Reason for discontinue is not on file. Disposition: Return in about 4 weeks (around 10/23/2018), or if symptoms worsen or fail to improve. Follow-up and Disposition History Recorded Letter Text Department of Internal Medicine [address] [address] Shon Garner [address] [address] September 25, 2018 TO WHOM IT MAY CONCERN: This is to certify that Shon Garner has been under the care of Abran Winston MD and was unable to work from Sep.26 through . Shon may return to work on with no restrictions. Sincerely yours, Abran Winston MD Encounter Status:Closed by ABRAN WINSTON MD on 09/25/18 CNPTOUTREALEE Observed: 09/24/2018 Status: COMPLETED Source: [place] 12:00 AM [facility] REPOSITORY Patient Outreach (INTMWS) SHON GARNER ([id number]) 1990 M [facility] Date Time Provider Department 09/24/18 ABRAN WINSTON INTMWS During your visit today, we recorded the following information about you: Allergies As of Date: 09/24/2018 Noted Allergy Reaction ASPIRIN 08/30/2016 7 - Swelling Comments: Eye swelling. NSAID okay. Date Reviewed: 08/11/2018 Reviewed by: Katelynn Williamson LPN - Fully Assessed Reason for Visit: Transition Of Care [4074] Prescriptions as of 09/24/2018 Sig: DICYCLOMINE 20 MG TABLET Take 1 tablet by mouth three * FLUTICASONE 50 MCG/ACTUATION * Use 2 Sprays in each nostril * Problem List As Of Date 09/24/2018 Noted Resolved Gastritis [K29.70] Hiatal hernia [K44.9] Tinnitus of both ears [H93.13] INVALID FOR* Cervicalgia [M54.2] INVALID FOR* Encounter Status:Closed by CLARISSE CALHOUN LPN on 09/29/18 DISCHARGE SUMMARY Observed: 09/21/2018 Status: F Source: [place] 6:08 PM [facility] Medical Records Department [address] [place] [address] Discharge Summary 09/20/18 0942 MR#: [id number] Acct: [id number] Name: SHON GARNER Rep #: [id number] : 1990 28 From: Hui NÚÑEZC PCP: Abran Winston MD Status: DIS IN Y [place] [facility] [id number] <Hui Green - Last Filed: 09/20/18 09:48> Discharge Date and Diagnosis Date of Admission: 09/18/18 Date of Discharge: 09/20/18 - Primary Discharge Diagnosis 1. Sepsis secondary to acute sigmoid diverticulitis, failed outpatient antibiotic therapy 2. Sinus tachycardia, secondary to #1-resolved - Secondary Discharge Diagnosis Chronic Problems Sigmoid diverticulitis (Chronic) Sepsis (Chronic) Hospital Course and Treatment Imaging Results: Diagnostic Data Abdomen/Pelvis CT 09/18/18 15:53 IMPRESSION: Sigmoid wall thickening and perisigmoidal fatty stranding consistent with acute diverticulitis, increased in severity from the previous day's study. There is no evidence of extraluminal gas or abnormal fluid collection in the region. Electronically Signed: Carroll Garcia MD at 16:55 EST , Service support , Dr. Coello- General Surgery Operations: None Procedures: None Summary of Care Provided: The patient is a 28 year old M admitted 09/18/2018 due to abdominal pain, fever, chills. 1. Sepsis secondary to acute sigmoid diverticulitis, failed outpatient antibiotic therapy with Flagyl and Cipro-sepsis criteria with tachycardia, leukocytosis, temp 100.7F, present on admission. CT of abdomen showed sigmoid wall thickening and perisigmoidal fatty stranding consistent with acute diverticulitis, increased in severity from prior study. No evidence of extraluminal gas or abnormal fluid collection in the region. IV Unasyn during admission. Discharged on oral Cipro and oral Flagyl which was previously prescribed in ER. General surgery, Dr. Coello consulted. Stool studies pending at discharge. Patient will follow-up with Dr. Webb next week with plans for scope as outpatient. Follow-up with primary care physician in 1 week. 2. Sinus tachycardia, mild-secondary to #1. Resolved. General: Alert, Oriented x3, Cooperative HEENT: Atraumatic, PERRLA, EOMI, Normocephalic Neck: Supple, No JVD, Negative Carotid Bruits Lungs: Clear to auscultation, Normal air movement Cardiovascular: Regular rate, Regular Rhythm, Normal S1, Normal S2, No murmurs Abdomen: Bowel Sounds Present, Soft, Non-Distended, Tender - Mild generalized Extremities: No clubbing, No cyanosis, No edema, Capillary Refill Less than 3 Seconds Skin: No rashes, No breakdown Musculoskeletal: No Tenderness to Palpation of Joints or Extremities Neurological: Cranial nerves II-XII grossly intact, Neuro grossly intact Psych/Mental Status: Normal Affect, Appropriate Patient seen and examined prior to discharge. Physical assessment as noted above. Patient is stable for discharge with follow up recommendations as noted above. This patient was seen by LISBET Merrill under the supervision of Dr. Connelly. - Physical Exam Vital Signs Temp Pulse Resp BP Pulse Ox 98.3 F 90 16 130/77 H 99 09/20/18 04:12 09/20/18 04:12 09/20/18 04:12 09/20/18 04:12 09/20/18 04:12 Oxygen Delivery Method Room Air Weight: 185 lb 4.8 oz Body Mass Index (BMI) 27.3 Intake and Output for Last 24 Hours Intake Total 1872 / 1873 958.5 / 958.5 Balance 1872 / 1872 958.5 / 958.5 Laboratory Tests Past 24 Hrs WBC 12.3 H RBC 4.76 Hgb 13.2 Hct 39.7 L MCV 83.4 MCH 27.7 MCHC 33.2 RDW 12.9 RDW Differential 39.2 Plt Count 306 MPV 9.2 Discharge Diet: - - Low gastric stimulus Discharge Activity: Return to Normal Activity Call your doctor if you observe: Fever of 101 or Higher, - - Increased abdominal pain Home Medications: Medications to take at Discharge Ciprofloxacin [Cipro] 500 mg PO BID #14 tab 09/17/18 Dicyclomine HCl [Bentyl] 20 mg PO TIDAC PRN 09/17/18 Metronidazole [Flagyl] 500 mg PO Q8H #21 tab 09/17/18 Polyethylene Glycol 3350 [Purelax] 17 gm PO PRN PRN 09/18/18 Lactobacillus Acidophilus/Fos [Acidophilus Probiotic Tablet] 1 each PO DAILY #30 tablet 09/20/18 Following Prescrptions Were Given to Patient: Lactobacillus Acidophilus/Fos [Acidophilus Probiotic Tablet] 1 each PO DAILY #30 tablet Primary Care Physician: Abran Winston MD [Primary Care Provider] - Please follow up with your Primary Care Physician in: 1 Week Please Follow Up With: Richi Coello MD - [phone] When: End of next week, call to schedule Disposition: Home Minutes spent on discharge:: 35 Patient Condition:: Stable Medical Necessity - Tobacco Use Smoking Status: Never smoker Meaningful Use Info Meaningful Use Diagnoses (Choose all that apply): None applicable <Stevenson Connelly - Last Filed: 09/21/18 18:08> Discharge Date and Diagnosis - Secondary Discharge Diagnosis Chronic Problems Sigmoid diverticulitis (Chronic) Sepsis (Chronic) Hospital Course and Treatment Summary of Care Provided: This patient was seen in conjunction with Hui COLLINS. I have independently interviewed and examined the patient and reviewed pertinent history, examination findings, laboratory and plan of management. I have reviewed the note and agree with the documented findings with the few additional points. In brief, patient is admitted for abdominal pain, fever, tachycardia and leukocytosis consistent with sepsis secondary to acute on recurrent sigmoid diverticulitis; failed outpatient therapy as mentioned above. Discussed with the patient, his and [id number]-ity present in the room regarding colonoscopy in 3-4 weeks and and possible sigmoid colectomy for recurrent diverticulitis. Patient was seen by Dr. Webb. The patient has follow-up for upper and lower endoscopy on October 09, 2018 in [place]. He was also seen by gastroenterology mid-level practitioner on August 11, 2018. Follow with Dr. Webb after upper and lower endoscopy. Discharge medication reconciliation done. Discharge follow- up instructions completed. Discharge process discussed with the patient. Total time spent, exact 35 minutes on discharge meds reconciliation, examination, review of imaging and blood test and discussion with the patient on follow-up instructions. I have discussed my assessment with RECOVERERHui and orders have been reviewed. [] Subjective: Seen and examined. Patient denies abdominal pain. Patient had good bowel movement. No fever or chills. Objective: General: Alert, Oriented x3, Cooperative HEENT: Atraumatic, PERRLA, EOMI, Normocephalic Neck: Supple, No JVD, Negative Carotid Bruits Lungs: Clear to auscultation, Normal air movement Cardiovascular: Regular rate, Regular Rhythm, Normal S1, Normal S2, No murmurs Abdomen: Bowel Sounds Present, Soft, Non-Distended, no tenderness. Tenderness resolved. No rebound tenderness, guarding or rigidity Extremities: No edema, Capillary Refill Less than 3 Seconds Skin: No rashes, No breakdown Musculoskeletal: No Tenderness to Palpation of Joints or Extremities Neurological: Cranial nerves II-XII grossly intact Psych/Mental Status: Normal Affect, Appropriate - Physical Exam Vital Signs Temp Pulse Resp BP Pulse Ox 98.8 F 90 18 143/85 H 99 09/20/18 14:20 09/20/18 14:20 09/20/18 14:20 09/20/18 14:20 09/20/18 14:20 Oxygen Delivery Method Room Air Weight: 185 lb 4.8 oz Body Mass Index (BMI) 27.3 Intake and Output for Last 24 Hours Intake Total 1872 958.5 / 958.5 Balance 1872 958.5 / 958.5 Microbiology Past 72 Hours 09/20/18 11:00 Enteric Bacteriology - Final Stool 09/20/18 11:00 C. difficile DNA Amplification - Final Stool 09/20/18 11:00 Stool Lactoferrin - Final Stool Code Visit Inpatient E AND M: [id number] Disch Hosp 09/20/18 0948 <Electronically signed by Hui NÚÑEZC> Date Hui Green RECOVEREREranC 09/21/18 180<Electronically signed by Stevenson Connelly MD> Cosigner Signature (if applicable): Date Stevenson Connelly MD CC: RECOVERER-C Hui Green; Stevenson Connelly MD; Abran Winston MD Signed STOOL Observed: 09/20/2018 Status: F Source: [place] LACTOFERRIN/WBC 11:00 AM [facility] Interface Comments: please let me lknow it is enough stool to test Order Date: 09/20/18 Comments: sample down there already Has pt arrived? Y Stool Lacto/WBC Normal Reference Range = Negative Fecal WBC Lactoferrin Positive: Fecal WBC Lactoferrin present Performed By: #### M100.0605 #### [facility] [address] Observed: 09/20/2018 Status: F Source: [place] CDIFF (MOLECULAR) 11:00 AM [facility] [place] Is the patient receiving laxatives? N New/unexplained onset of 3 or more stools in past 24 hrs? Y Interface Comments: please let me know if it enough stool, 5769 Order Date: 09/20/18 Comments: already sent down Cdiff-Molecular C. Diff DNA Negative- No toxigenic C. Diff DNA Detected NAAT METHOD Testing was performed using nucleic acid amplification Performed By: #### M100.6796 #### [facility] [address] [place], [address] Observed: 09/20/2018 Status: F Source: [place] ENTERIC PATHOGEN 11:00 AM [facility] [place] PANEL STOOL REPOSITORY Interface Comments: please let me know if it is enough stool 5769 Order Date: 09/20/18 Comments: stool already down there Has pt arrived? Y EP PANEL STOOL Not detected for Campylobacter group, Salmonella species, Shigella species, Vibrio Group, Yersinia enterocolitica, EHEC (Shiga Toxin 1, Shiga Toxin 2), Norovirus Gl/Gll, and Rotavirus A. Other common stool pathogens are not detected on this panel include: Aeromonas/Plesiomonas or parasites. Order testing for these organisms separately if suspected. This is an amplified DNA test which makes it both specific and sensitive.Normal Reference Range = Not Detected CAMPYLOBACTER Not Detected Salmonella Not Detected Shigella sp. Not Detected Shiga Toxin Not Detected Yersinia Not Detected VIBRIO Not Detected Norovirus Not Detected Rotavirus Not Detected Performed By: #### M100.637 #### [facility] [address] [place] [address], [address] DISCHARGE INSTRUCTION Observed: 09/20/2018 Status: F Source: [place] 9:42 AM [facility] [place] [place] Medical Records Department [address] [place] [address] Instructions for Home/Discharge Instructions 09/20/18 0933 MR#: [id number] Acct: [id number] Name: SHON GARNER Rep #: [id number] : 1990 28 From: Hui FRAUSTO PCP: Abran Winston MD Status: ADM IN - Discharge Diagnoses Current Active Problems: Current Active and Chronic Problems Sigmoid diverticulitis (Chronic) Sepsis (Chronic) You will use the following diet at home:: Other - Low gastric stimulus. Discharge Activity: Return to Normal Activity Call your doctor if you observe: Fever of 101 or Higher, - - Increased abdominal pain Additional Instructions: Continue prior flagyl and cipro antibiotic prescriptions you were given in emergency room. Complete full course of antibiotic. Dr. Coello will see you in his office at the end of next week and EGD/Colonoscopy will be scheduled at that time. If Dr. Coello's office does not contact you, please call to schedule appointment. Allergies/Adverse Reactions: Allergies aspirin [ASA] Allergy (Verified 09/18/18 15:19) Swelling Medications to take at Discharge Ciprofloxacin [Cipro] 500 mg PO BID #14 tab 09/17/18 Dicyclomine HCl [Bentyl] 20 mg PO TIDAC PRN 09/17/18 Metronidazole [Flagyl] 500 mg PO Q8H #21 tab 09/17/18 Polyethylene Glycol 3350 [Purelax] 17 gm PO PRN PRN 09/18/18 Lactobacillus Acidophilus/Fos [Acidophilus Probiotic Tablet] 1 each PO DAILY #30 tablet 09/20/18 The following prescriptions were given: Lactobacillus Acidophilus/Fos [Acidophilus Probiotic Tablet] 1 each PO DAILY #30 tablet Primary Care Physician: Abran Winston MD [Primary Care Provider] - Please follow up with your Primary Care Physician in: 1 Week Test Results: Test results from this visit will be discussed in further detail at your follow-up appointment, if applicable. Please Follow Up With: Richi Coello MD - [phone] When: End of next week, call to schedule Proposed Discharge Date: 09/20/18 - \ 09/20/18 0942 <Electronically signed by Hui FRAUSTO> Date Hui FRAUSTO CC: Richi Coello MD; Abran Winston MD Signed CBC-COMPLETE BLOOD CNT Collected: 09/20/2018 Status: F Source: [place] NO DIFF 6:36 AM [facility] TYPE CODE TESTS RESULT OUT OF RANGE REFERENCE UNITS LAB L100.1000 4.4-11.0 K/mm3 High WBC 12.3 LAB L100.1200 4.6-6.2 M/mm3 Normal RBC 4.76 LAB L100.1300 13.0-16.5 g/dl Normal HGB 13.2 LAB L100.1400 40-54 % Low HCT 39.7 LAB L100.1500 80-94 fL Normal MCV 83.4 LAB L100.1600 27.0-32.0 pg Normal MCH 27.7 LAB L100.1700 32-36 g/gl Normal MCHC 33.2 LAB L100.1810 11.6-14.6 % Normal RDW CV 12.9 LAB L100.1820 35.1-43.9 fl Normal RDW SD 39.2 LAB L100.1900 150-450 K/mm3 Normal PLT 306 LAB L100.2000 6.2-12.0 fl Normal MPV 9.2 Performed By: #### L100.0500 #### [facility] [address] [place], [address] CONSULTATION Observed: 09/19/2018 Status: F Source: [place] 5:13 PM [facility] [facility] Medical Records Department [address] [place] [address] Consultation 09/19/18 1708 MR#: [id number] Acct: [id number] Name: SHON GARNER Rep #: [id number] : 1990 28 From: Richi Coello MD PCP: Abran Winston MD Status: ADM IN Location: [address] Reason for Consult Date of Consultation: 09/19/18 Reason for Consultation: abdominal pain-diverticulitis History of Present Illness: The patient is a 28 year old M he presented to [facility] emergency department a 3 day history of left lower quadrant abdominal pain. He presented to [facility] after 2 days of pain. He underwent CT scan which demonstrated sigmoid thickening consistent with diverticulitis. He was discharged on oral antibiotics. He returned 24 hours later with worsening abdominal pain and a feeling of nausea and abdominal discomfort he was then admitted with a diagnosis of diverticulitis and started on IV antibiotics-Cipro and Flagyl. the patient notes he is still passing flatus and having some liquid bowel movements. Past Medical History Past Medical History (Chronic Problems): Chronic Problems Sigmoid diverticulitis (Chronic) Sepsis (Chronic) Allergies aspirin [ASA] Allergy (Verified 09/18/18 15:19) Swelling Home Medications: Ambulatory Orders Medication Instructions Recorded Ciprofloxacin [Cipro] 500 mg PO BID #14 tab 09/17/18 Surgical History: no surgical history Psychiatric History: No pertinent psych hx Lives: Alone Smoking Status: Never smoker Alcohol: None Drugs: None - *Family History Maternal History Items: - - Hx of diverticulitis Paternal History Items: Heart Disease Review of Systems Constitutional: Denies: Chills, Fever, Weight Change HEENT: Denies: Head Aches, Sinus Congestion, Sinus Drainage Cardiovascular: Denies: Chest Pain, Palpitations Respiratory: Denies: Cough, Shortness of breath at rest, Sputum production Gastrointestinal: Reports: Abdominal Pain. Denies: Nausea, Vomiting Genitourinary: Denies: Dysuria Musculoskeletal: Denies: Joint Pain, Joint Tenderness Skin: Denies: Rash, Wounds Neurological: Denies: Numbness, Tingling, Focal weakness Psychiatric: Denies: Anxiety, Depression, Homicidal Ideations, Suicidal Ideations Hematologic/ Lymphatic: Denies: Easy Bruising, Easy Bleeding - Physical Exam General: Alert, Oriented x3, Cooperative Lungs: Clear to auscultation, Normal air movement Cardiovascular: Regular rate, No murmurs Abdomen: Bowel Sounds Present, Soft, Tender - left lower quadrant without diffuse peritoneal signs Vital Signs Temp Pulse Resp BP Pulse Ox 98.3 F 88 18 132/76 H 98 09/19/18 16:48 09/19/18 14:35 09/19/18 14:35 09/19/18 14:35 09/19/18 14:35 Oxygen Delivery Method Room Air Weight: 84.051 kg Body Mass Index (BMI) 27.3 Intake and Output for Last 24 Hours Intake Total 1573 / 1573 Balance 1573 / 1573 Laboratory Tests Past 24 Hrs WBC 18.3 H RBC 4.79 Hgb 13.5 Assessment/Plan significant colonic thickening-diverticulitis versus colitis? The patient is currently on Cipro and Flagyl IV. If he is tolerating liquids I'm comfortable with them maintaining on a liquid diet. Agree with watching the patient clinically. Interestingly, I don't see significant diverticulosis and the patient is relatively young. We will ask about any foreign travel or unusual foods lately that might cause a localized colitis is the etiology versus again diverticulitis. 09/19/18 1713 <Electronically signed by Richi Coello MD> Date Richi Coello MD Cosigner Signature (if applicable): Date CC: Rashaad Ortiz DO; Richi Coello MD; Abran Winston MD Signed CBC W/DIFF, AUTOMATED Collected: 09/19/2018 Status: F Source: [place] 5:26 AM [facility] [place] [place] TYPE CODE TESTS RESULT OUT OF RANGE REFERENCE UNITS LAB L100.1000 4.4-11.0 K/mm3 High WBC 18.3 LAB L100.1200 4.6-6.2 M/mm3 Normal RBC 4.79 LAB L100.1300 13.0-16.5 g/dl Normal HGB 13.5 LAB L100.1400 40-54 % Low HCT 39.9 LAB L100.1500 80-94 fL Normal MCV 83.3 LAB L100.1600 27.0-32.0 pg Normal MCH 28.2 LAB L100.1700 32-36 g/gl Normal MCHC 33.8 LAB L100.1810 11.6-14.6 % Normal RDW CV 13.0 LAB L100.1820 35.1-43.9 fl Normal RDW SD 39.2 LAB L100.1900 150-450 K/mm3 Normal PLT 294 LAB L100.2000 6.2-12.0 fl Normal MPV 9.6 LAB L100.2100 47-70 % High NEUT% 80.9 LAB L100.2200 19-41 % Low LY% 5.9 LAB L100.2300 0-10 % High MONO% 12.7 LAB L100.2400 0-5 % Normal EO% 0.2 LAB L100.2500 0-1 % Normal BASO% 0.1 LAB L100.2550 0.0-0.9 % Normal IM GRAN % 0.200 Result Comment: IG% - Immature Granulocytes (promyelocytes, myelocytes and metamyelocytes) > 1% indicates that a LEFT SHIFT is Present. LAB L100.2620 2.0-7.7 X10 3/uL High Absolute Neut 14.8 LAB L100.2720 0.83-4.51 X10 3/ul Normal Absolute Lymph 1.07 Performed By: #### L100.0100 #### [facility] [address] [place], [address] HISTORY AND PHYSICAL Observed: 09/18/2018 Status: F Source: [place] EXAM 6:59 PM [facility] Medical Records Department [address] [place] [address] History and Physical 09/18/18 1759 MR#: [id number] Acct: [id number] Name: SHON GARNER Rep #: [id number] : 1990 28 From: Hui Green RECOVERER-C PCP: Abran Winston MD Status: ADM IN Y [place] [facility] [id number] ADDENDUM by Rashaad Ortiz DO on 09/18/18 at 1859 Code Visit Patient was seen and examined today independently of Hui Green, he came to the emergency room today with complaints of lower abdominal pain, yesterday he was seen in the emergency room and diagnosed with acute diverticulitis and was placed on Cipro and Flagyl, he returned to the emergency room for reevaluation today due to the fact he felt he was getting worse, he complained of lower abdominal pain and chills and fever. Patient had labs repeated today which showed an elevated white blood cell count at 17.8, lactic acid was not elevated, chemistry profile was unremarkable. Patient had a CT of the abdomen and pelvis, again it showed sigmoid diverticulitis without evidence of abscess or perforation. General surgery was contacted and requested hospitalist service admit the patient with surgery to consult. Physical exam: On examination he appeared in good health and spirits. Vital signs as documented. Skin warm and dry and without overt rashes. Neck without JVD. Lungs clear. Heart exam notable for regular rhythm, normal sounds and absence of murmurs, rubs or gallops. Abdomen-abdomen is tender to palpation overall, no rebound abdominal tenderness was noted, bowel sounds were present. Extremities: No lower extremity edema was noted. Neuro: Cranial nerves II through XII are grossly intact, no focal motor deficits were noted. Psych: Patient is alert and oriented x3, he does not appear to be depressed or anxious. Patient will be admitted for sepsis from acute diverticulitis, he will be seen in consultation by surgery, he will be given IV fluids and placed on IV Unasyn. I have reviewed Hui Green's history and physical including her assessment and medical plan of care and endorse both. Inpatient E AND M: 17671 Init Hosp L3 09/18/18 1859 <Electronically signed by Rashaad Ortiz DO> Date Rashaad Ortiz DO cc: RECOVERER-C Hui Green; Rashaad Ortiz DO; Abran Winston MD * Signed Problem List (1) Sigmoid diverticulitis Status: Chronic (2) Sepsis Status: Chronic History of Present Illness Date of Admission: 09/18/18 Chief Complaint: Abdominal pain, fever, chills. The patient is a 28 year old M who presents emergency room due to abdominal pain with fever, chills X3 days. Patient was discharged yesterday, 09/17/2018 from emergency room with Cipro and Flagyl which he was prescribed for sigmoid diverticulitis. Patient returns with increased abdominal pain and continued fever, chills. Patient reports a history of diverticulitis in the past x2. He denies other past medical history. Reports intermittent blood in stool. Patient states he as intermittent diarrhea followed by constipation. He denies nausea, vomiting. Reports decreased appetite and bad taste in mouth. Patient states he was scheduled for outpatient EGD and colonoscopy in September which was arranged by his primary care physician, Dr. Winston. Past Medical History Past Medical History (Chronic Problems): Chronic Problems Sigmoid diverticulitis (Chronic) Sepsis (Chronic) Allergies aspirin [ASA] Allergy (Verified 09/18/18 15:19) Swelling Home Medications: Ambulatory Orders Medication Instructions Recorded Ciprofloxacin [Cipro] 500 mg PO BID #14 tab 09/17/18 Surgical History: no surgical history Psychiatric History: No pertinent psych hx Lives: Alone Smoking Status: Never smoker Alcohol: None Drugs: None - *Family History Maternal History Items: - - Hx of diverticulitis Paternal History Items: Heart Disease Review of Systems Constitutional: Reports: Chills, Fever. Denies: Weight Change HEENT: Denies: Head Aches, Sinus Congestion, Sinus Drainage Cardiovascular: Denies: Chest Pain, Edema, Light Headedness, Palpitations, Syncope Respiratory: Denies: Cough, Shortness of breath at rest, Sputum production Gastrointestinal: Reports: Abdominal Pain, Hematochezia, - - Intermittent diarrhea and constipation. Denies: Nausea, Vomiting Genitourinary: Denies: Dysuria Musculoskeletal: Denies: Joint Pain, Joint Tenderness Skin: Denies: Rash, Wounds Neurological: Denies: Numbness, Tingling, Focal weakness Psychiatric: Denies: Anxiety, Depression, Homicidal Ideations, Suicidal Ideations Hematologic/ Lymphatic: Denies: Easy Bruising, Easy Bleeding VTE Information - Inpt Only VTE Present on Admission: No VTE Mechan Device Prophylaxis: None VTE Pharm Prophylaxis ordered?: No Reason prophylaxis not ordered:: Treatment Not Indicated - Physical Exam General: Alert, Oriented x3, Cooperative, No apparent distress HEENT: Atraumatic, PERRLA, EOMI, Normocephalic Neck: Supple, No JVD, Negative Carotid Bruits Lungs: Clear to auscultation, Normal air movement Cardiovascular: Regular Rhythm, Normal S1, Normal S2, No murmurs, Tachycardic Abdomen: Bowel Sounds Present, Soft, Non-Distended, Tender Extremities: No clubbing, No cyanosis, No edema, Capillary Refill Less than 3 Seconds Skin: No rashes, No breakdown Musculoskeletal: No Tenderness to Palpation of Joints or Extremities Neurological: Cranial nerves II-XII grossly intact, Neuro grossly intact Psych/Mental Status: Normal Affect, Appropriate Vital Signs Temp Pulse Resp BP Pulse Ox 100.7 F H 99 18 128/84 H 100 09/18/18 16:54 09/18/18 16:54 09/18/18 16:54 09/18/18 16:54 09/18/18 16:54 Oxygen Delivery Method Room Air Weight: 186 lb 1.122 oz Body Mass Index (BMI) 27.4 Laboratory Tests Past 24 Hrs Assessment/Plan 1. Sepsis secondary to acute sigmoid diverticulitis, failed outpatient antibiotic therapy with Flagyl and Cipro-sepsis criteria with tachycardia, leukocytosis, temp 100.7F, present on admission. CT of abdomen showed sigmoid wall thickening and perisigmoidal fatty stranding consistent with acute diverticulitis, increased in severity from prior study. No evidence of extraluminal gas or abnormal fluid collection in the region. Clear liquids. IV Unasyn. General surgery, Dr. Coello consulted. PRN pain regimen. 2. Sinus tachycardia, mild-secondary to #1. DVT prophylaxis-not indicated, low risk. This patient was seen by LISBET Merrill under the supervision of Dr. Ortiz. 09/18/181831 <Electronically signed by Hui FRAUSTO> Date Hui FRAUSTO 09/18/181853<Electronically signed by Rashaad Ortiz DO> Cosigner Signature: Date (if applicable) Rashaad Ortiz DO CC: LISBET Green; Rashaad Ortiz DO; Abran Winston MD Signed EMERGENCY DEPARTMENT Observed: 09/18/2018 Status: F Source: [place] SUMMARY 5:22 PM [facility] [place] Medical Records Department [address] [place] [address] Emergency Department Summary 09/18/18 1714 MR#: [id number] Acct: [id number] Name: SHON GARNER Rep #: [id number] : 1990 28 From: Ramon Ramirez MD PCP: Abran Winston MD Status: REG ER - ER Visit Summary Date of Service: 09/18/18 Chief Complaint: Fever and chills with increased abdominal pain History of Present Illness: The patient is a 28 M who was seen yesterday and diagnosed with sigmoid diverticulitis. Patient was discharged home with appropriate antibiotics. He presents because of fever, chills and increased pain. He has pain with movement. Records from yesterday were reviewed and he had left lower quadrant abdominal pain without guarding or rebound tenderness. Patient states he did fill his prescription and has taken the antibiotics as instructed. He denies headache, visual, ocular auditory symptoms. He denies cardiac or respiratory symptoms. He denies dysuria, frequency, urgency or hematuria. He denies blood, mucus in his stool. He denies diarrhea. Last bowel movement was yesterday. He is fluctuating. He does report nausea without vomiting. He localizes the pain to the right and left lower quadrant greater on the left. He denies any testicular pain. Please read written note for complete detail Physical Examination: Vital signs noted and remarkable for heart rate of 108 and temperature 100. Head is atraumatic normocephalic. Pupils are equal round reactive. Extraocular muscles are intact. TMs are pearly white with landmarks noted. Nares patent with no drainage. Posterior pharynx without erythema or exudate. Uvula is midline. Tongue and buccal mucosa are dry there is no dysphonia or dysphasia. Trachea is midline. There is no stridor with auscultation of the neck. Heart is regular without murmur, gallop or rub. S1 and S2 are normal. Lungs are clear to auscultation with good movement of air bilaterally. Abdomen soft with involuntary guarding and rebound tenderness. Bowel sounds are diminished. There is slight tympany to percussion. There is no CVA tenderness. There is no umbilical or inguinal hernia appreciated. Is no inguinal lymphadenopathy. Lower extremity exam is unremarkable. Neuro exam is nonfocal. Test Results: White count is 17.8 thousand with no bandemia. CT of the abdomen reveals progression of his sigmoid diverticulitis with no free air pneumatosis of the bowel wall. Emergency Department Course and Treatment: IV was established. He is given 1 L of normal saline wide open. He was administered 4.5 g of Zosyn since he has diagnosis of diverticulitis and has progression of his disease based on history and physical. Case was discussed with Dr. Webb who agrees with obtaining CAT scan. Discussed if scan should be done with contrast or not. The scan was done without contrast. I was informed since patient was tachycardic and has a white count of 17.88 sepsis alert. Lactate was ordered. Since he received antibiotics yesterday has taken antibiotics prior to arrival and received antibiotics on presentation since he has peritonitis blood cultures were not obtained and are not required unless lactate is greater than 2. The hospitalist was paged for admission. Dr. Webb was re-paged and informed of CT results and lab results. He states he will see him in consultation and follow-up Treatment Plan: Admit n.p.o., IV antibiotics. Dr. Coello is concerned that he may have a developing ileus Disposition: Admit medical surgical unit Impression: 1. Acute diverticulitis sigmoid failed outpatient treatment 2. Sinus tachycardia documented monitor 3. Sepsis This note was generated with Intronisation software. It may contain incorrect words, spelling, and punctuation that were not noted in review of the chart prior to signing ED Disposition - Plan for ED Patient: Chief Complaint: Abd Pain Referrals: Abran Winston MD [Primary Care Provider] - What to do if you have Problems For any increased pain, shortness of breath, bleeding, nausea or vomiting, chest pain, or any unexpected problems, contact your Primary Care Provider. Call [facility] ([phone]) or report to the closest Emergency Room. Call 911 if necessary. 09/18/18 1722 <Electronically signed by Ramon Ramirez MD> Date Ramon Ramirez MD Cosigner Signature (If Indicated): Date CC: Richi Coello MD; Abran Winston MD BASIC METABOLIC Collected: 09/18/2018 Status: F Source: [place] PROFILE (BMP) 4:00 PM [facility] [facility] [place] TYPE CODE TESTS RESULT OUT OF RANGE REFERENCE UNITS LAB L501.0100 74-106 mg/dL High GLU 115 Result Comment: Fasting Glucose result from 100 to 125 mg/dL suggests IMPAIRED HOMEOSTASIS per A.D.A. criteria. Please note revised GLUCOSE reference range effective 2017. LAB L501.1000 7-18 mg/dL Normal BUN 8 LAB L501.1100 0.70-1.30 mg/dL Normal CREAT,SERUM 1.17 Result Comment: The validity of the calculated GFR AND GFRAA in patients over 70 years has not been determined. Clinical correlation is essential. LAB L501.1110 >60 mL/min Normal EST GFR 79 Result Comment: Non- GFR Calc LAB L501.1115 >60 mL/min Normal EST GFR - AA 96 Result Comment: GFR Calc LAB L501.1255 ml/min Normal Estimated CRCL 94.84 LAB L501.1300 10-20 RATIO Low BUN/CRE 6.8 LAB L501.2200 8.5-10 mg/dL Normal .1 CA 8.9 LAB L501.5300 136-14 mmol/L Normal 5 NA 136 LAB L501.5600 3.5-5. mmol/L Normal 1 K 3.6 LAB L501.5900 98-107 mmol/L Normal CL 100 LAB L501.6100 21.0-3 mmol/L Normal 2.0 CO2 28.0 LAB L501.6200 5-15 Normal GAP 8 Performed By: #### L500.2500 #### [facility] [address] [place], [address] CBC W/DIFF, AUTOMATED Collected: 09/18/2018 Status: F Source: [place] 4:00 PM [facility] [place] [facility] [place] [place] TYPE CODE TESTS RESULT OUT OF RANGE REFERENCE UNITS LAB L100.1000 4.4-11.0 K/mm3 High WBC 17.8 LAB L100.1200 4.6-6.2 M/mm3 Normal RBC 5.20 LAB L100.1300 13.0-16.5 g/dl Normal HGB 14.5 LAB L100.1400 40-54 % Normal HCT 43.1 LAB L100.1500 80-94 fL Normal MCV 82.9 LAB L100.1600 27.0-32.0 pg Normal MCH 27.9 LAB L100.1700 32-36 g/gl Normal MCHC 33.6 LAB L100.1810 11.6-14.6 % Normal RDW CV 12.7 LAB L100.1820 35.1-43.9 fl Normal RDW SD 38.6 LAB L100.1900 150-450 K/mm3 Normal PLT 295 LAB L100.2000 6.2-12.0 fl Normal MPV 9.3 LAB L100.2100 47-70 % High NEUT% 82.4 LAB L100.2200 19-41 % Low LY% 10.7 LAB L100.2300 0-10 % Normal MONO% 6.6 LAB L100.2400 0-5 % Normal EO% 0.1 LAB L100.2500 0-1 % Normal BASO% 0.1 LAB L100.2550 0.0-0.9 % Normal IM GRAN % 0.100 Result Comment: IG% - Immature Granulocytes (promyelocytes, myelocytes and metamyelocytes) > 1% indicates that a LEFT SHIFT is Present. LAB L100.2620 2.0-7.7 X10 3/uL High Absolute Neut 14.6 LAB L100.2720 0.83-4.51 X10 3/ul Normal Absolute Lymph 1.90 LAB L100.4700 Normal REACTIVE LYMPH 2+ Performed By: #### L100.0100 #### [facility] [address] [place], [address] ABDOMEN/PELVIS WITHOUT Observed: 09/18/2018 Status: F Source: [place] CONT 3:55 PM [facility] [place] [place] Imaging Services [address] [place] [address] Abdomen/Pelvis without Cont MR#: [id number] Acct: [id number] Name: SHON GARNER Rep #: [id number] : 1990 28 From: Carroll Garcia MD PCP: Abran Winston MD Status: REG ER Study: Abdomen/Pelvis without Cont Date of Exam: 09/18/18 Exam# [id number] Ordering Dr: Ramon Raimrez MD STUDY: CT ABDOMEN AND PELVIS WITHOUT CONTRAST REASON FOR EXAM: Male, 28 years old. Diverticulitis RADIATION DOSAGE (If Supplied By Facility): CTDIvol = ( 14.09 ) mGy, DLP = ( 708.67 ) mGycm TECHNIQUE: Transaxial images were obtained from the dome of the diaphragm to the symphysis pubis without oral contrast, and without intravenous contrast. Sagittal and coronal images were reconstructed. Individualized dose optimization techniques were used for this CT. COMPARISON: Prior study of 09/17/2018 FINDINGS: There is left lingular infiltrate and/or atelectasis, similar to the previous day's study. The visualized portions of the heart are within normal limits. Normal liver. Normal gallbladder and extrahepatic biliary system. Normal spleen. Normal pancreas. Normal bilateral adrenal glands. Normal right kidney. Normal left kidney. Normal visualized stomach. Normal small intestine. There is diffuse sigmoid wall thickening with perisigmoidal fatty stranding. There is no evidence of extraluminal air or abnormal fluid collection in the region. Findings have increased in severity from the previous day's study. The appendix is visualized and appears normal. Normal abdominal aorta. Normal inferior vena cava. Normal retroperitoneum. Normal urinary bladder. The prostate, seminal vesicles, and seminal vesicle angles appear normal. Normal abdominal wall. Normal osseous structures. CT/Abdomen/Pelvis without Cont IMPRESSION: Sigmoid wall thickening and perisigmoidal fatty stranding consistent with acute diverticulitis, increased in severity from the previous day's study. There is no evidence of extraluminal gas or abnormal fluid collection in the region. Electronically Signed: Carroll Garcia MD at 16:55 EST , Service support , CC: Ramon Ramirez MD; Abran Winston MD Manager Account Management: Signed LACTIC ACID Collected: 09/18/2018 Status: F Source: [place] 12:20 PM [facility] [facility] Order Comment: Yes/No query for Sepsis Lactate Rule Y TYPE CODE TESTS RESULT OUT OF RANGE REFERENCE UNITS LAB L503.6005 0.4-2.0 mmol/L Normal LACTIC ACID 1.1 Performed By: #### L503.6005 #### [facility] [address] [facility] [place], [address] DISCHARGE INSTRUCTION Observed: 09/17/2018 Status: F Source: [place] 3:42 PM [facility] [place] [facility] Medical Records Department [address] [facility] [place] [address] Discharge Instruction 09/17/18 1441 MR#: [id number] Acct: [id number] Name: SHON GARNER Rep #: [id number] : 1990 28 From: Karthikeyan Samaniego MD PCP: Abran Winston MD Status: DEP ER ED Disposition - Plan for ED Patient: Chief Complaint: Abd Pain Instructions: ED Diverticulitis Prescriptions: Metronidazole [Flagyl] 500 mg PO Q8H #21 tab Ciprofloxacin [Cipro] 500 mg PO BID #14 tab Referrals: Abran Winston MD [Primary Care Provider] - What to do if you have Problems For any increased pain, shortness of breath, bleeding, nausea or vomiting, chest pain, or any unexpected problems, contact your Primary Care Provider. Call [facility] ([phone]) or report to the closest Emergency Room. Call 911 if necessary. 09/17/18 1542 <Electronically signed by Karthikeyan Samaniego MD> Date Karthikeyan Samaniego MD Cosigner Signature (If Indicated): Date CC: Abran Winston MD EMERGENCY DEPARTMENT Observed: 09/17/2018 Status: F Source: [place] SUMMARY 3:42 PM [facility] [place] [facility] Medical Records Department [address] [place] [address] Emergency Department Summary 09/17/18 1107 MR#: [id number] Acct: [id number] Name: SHON GARNER Rep #: [id number] : 1990 28 From: Karthikeyan Samaniego MD PCP: Abran Winston MD Status: DEP ER - ER Visit Summary Date of Service: 09/17/18 Chief Complaint: Abdominal pain History of Present Illness: The patient is a 28 M with abdominal pain. Pain is in his left lower quadrant and does not radiate. He has had some diarrhea over the past 3-4 days. He had similar symptoms in the past with diverticulitis. He never had perforation, abscess, or surgery. Never had a colonoscopy but has one scheduled. Physical Examination: Afebrile and vital signs unremarkable. No acute distress. Alert and oriented. Heart regular. Lungs clear. Abdomen tender in the left lower quadrant. No guarding or rebound. Skin appears normal. Test Results: Labs, urine, CT pending. Emergency Department Course and Treatment: Patient declined pain medicine. He was treated with IV fluids while awaiting results. White count 11.5. Otherwise labs unremarkable. CT shows findings concerning for diverticulitis without any complication. Based on his exam, symptoms, findings, I believe he is appropriate for outpatient follow-up. He was treated with Cipro and Flagyl. Follow-up with his outpatient doctor. Treatment Plan: As above Disposition: Discharge Impression: Acute diverticulitis This note was generated with Intronisation software. It may contain incorrect words, spelling, and punctuation that were not noted in review of the chart prior to signing ED Disposition - Plan for ED Patient: Chief Complaint: Abd Pain Referrals: Abran Winston MD [Primary Care Provider] - What to do if you have Problems For any increased pain, shortness of breath, bleeding, nausea or vomiting, chest pain, or any unexpected problems, contact your Primary Care Provider. Call [facility] ([phone]) or report to the closest Emergency Room. Call 911 if necessary. 09/17/18 1542 <Electronically signed by Karthikeyan Samaniego MD> Date Karthikeyan Samaniego MD Cosigner Signature (If Indicated): Date CC: Abran Winston MD URINALYSIS, COMPLETE Collected: 09/17/2018 Status: F Source: [place] 12:20 PM [facility] [place] Order Comment: How was Urine Obtained? HOUSE COORDINATOR TO SPECIFY TYPE CODE TESTS RESULT OUT OF RANGE REFERENCE UNITS LAB L400.3000 Yellow COLOR Normal Yellow LAB L400.3050 Clear Normal CLARITY Clear LAB L400.3200 Normal mg/dl Normal GLUCOSE, UR Normal LAB L400.3300 Negative mg/dL Normal BILIRUBIN URINE Negative LAB L400.3400 Negative mg/dl Normal KETONE UR Negative LAB L400.3465 1.002-1.030 Normal SP.GR. DIPSTX 1.015 LAB L400.3550 5.0 - 8.0 pH UR Normal 8.0 LAB L400.3600 Negative mg/dl PROT Normal DIPSTX Negative LAB L400.3700 Normal mg/dl Normal UROBILI Normal LAB L400.3750 Negative Normal NITRITE UR Negative LAB L400.3780 Negative /ul Normal OCCULT BLOOD-UR Negative LAB L400.3800 Negative /ul LEUK Normal ESTERASE Negative LAB L400.4050 0-5 /hpf WBC 0 Normal SEEN LAB L400.4100 0-5 /hpf 0 Normal RBC-UA SEEN LAB L400.4150 0-5 /hpf SQUAM 0 Normal EPI SEEN LAB L400.4300 None Seen /hpf 0 Normal BACTERIA SEEN LAB L400.4350 <or=2+ /hpf 0 Normal MUCUS, URINE SEEN Performed By: #### L400.0001 #### [facility] [address] [place], [place], [id number] CBC W/DIFF, AUTOMATED Collected: 09/17/2018 Status: F Source: [place] 11:20 AM [facility] [place] TYPE CODE TESTS RESULT OUT OF RANGE REFERENCE UNITS LAB L100.1000 4.4-11.0 K/mm3 High WBC 11.5 LAB L100.1200 4.6-6.2 M/mm3 Normal RBC 5.25 LAB L100.1300 13.0-16.5 g/dl Normal HGB 14.8 LAB L100.1400 40-54 % Normal HCT 43.5 LAB L100.1500 80-94 fL Normal MCV 82.9 LAB L100.1600 27.0-32.0 pg Normal MCH 28.2 LAB L100.1700 32-36 g/gl Normal MCHC 34.0 LAB L100.1810 11.6-14.6 % Normal RDW CV 13.1 LAB L100.1820 35.1-43.9 fl Normal RDW SD 39.4 LAB L100.1900 150-450 K/mm3 Normal PLT 310 LAB L100.2000 6.2-12.0 fl Normal MPV 9.7 LAB L100.2100 47-70 % High NEUT% 80.1 LAB L100.2200 19-41 % Low LY% 9.2 LAB L100.2300 0-10 % Normal MONO% 9.7 LAB L100.2400 0-5 % Normal EO% 0.5 LAB L100.2500 0-1 % Normal BASO% 0.2 LAB L100.2550 0.0-0.9 % Normal IM GRAN % 0.300 Result Comment: IG% - Immature Granulocytes (promyelocytes, myelocytes and metamyelocytes) > 1% indicates that a LEFT SHIFT is Present. LAB L100.2620 2.0-7.7 X10 3/uL High Absolute Neut 9.2 LAB L100.2720 0.83-4.51 X10 3/ul Normal Absolute Lymph 1.06 Performed By: #### L100.0100 #### [facility] [address] [place], [place] [address] [place], [place], [address] COMPREHENSIVE METABOLIC Collected: 09/17/2018 Status: F Source: [facility] 11:20 AM [facility] [place] [facility] [place] [place] TYPE CODE TESTS RESULT OUT OF RANGE REFERENCE UNITS LAB L501.0100 74-106 mg/dL High GLU 114 Result Comment: Fasting Glucose result from 100 to 125 mg/dL suggests IMPAIRED HOMEOSTASIS per A.D.A. criteria. Please note revised GLUCOSE reference range effective 2017. LAB L501.1000 7-18 mg/dL Normal BUN 10 LAB L501.1100 0.70-1.30 mg/dL Normal CREAT,SERUM 1.11 Result Comment: The validity of the calculated GFR AND GFRAA in patients over 70 years has not been determined. Clinical correlation is essential. LAB L501.1110 >60 mL/min Normal EST GFR 84 Result Comment: Non- GFR Calc LAB L501.1115 >60 mL/min Normal EST GFR - AA 102 Result Comment: GFR Calc LAB L501.1255 ml/min Normal Estimated CRCL 96.71 LAB L501.1300 10-20 RATIO Low BUN/CRE 9.0 LAB L501.1500 6.4-8. g/dL Normal 2 T PROT 8.1 LAB L501.1800 3.2-5. g/dL Normal 0 ALB 3.6 LAB L501.1950 2.2-4. g/dL High 2 GLOB 4.5 LAB L501.2000 0.9-2. RATIO Low 4 A/G 0.8 LAB L501.2200 8.5-10 mg/dL Normal .1 CA 8.9 LAB L501.4100 15-37 U/L Normal AST 26 Result Comment: Moderate Hemolysis, Result may be falsely increased. LAB L501.4305 45-117 U/L Normal ALK P 111 LAB L501.4405 16-61 U/L Normal ALT 38 LAB L501.4600 0.20-1.00 mg/dL Normal T BILI 0.80 LAB L501.5300 136-145 mmol/L Normal NA 137 LAB L501.5600 3.5-5.1 mmol/L Normal K 4.5 Result Comment: Moderate Hemolysis, Result may be falsely increased. LAB L501.5900 98-107 mmol/L Normal CL 103 LAB L501.6100 21.0-32.0 mmol/L Normal CO2 26.0 LAB L501.6200 5-15 Normal 8 GAP Performed By: #### L500.4050, L501.2450 #### [facility] [address] [place], [address] LIPASE Collected: 09/17/2018 Status: F Source: [place] 11:20 AM [facility] [place] [facility] [place] [place] TYPE CODE TESTS RESULT OUT OF RANGE REFERENCE UNITS LAB L501.2450 73-393 U/L Normal LIPASE 159 Performed By: #### L500.4050, L501.2450 #### [facility] [address] [place], [address] ABDOMEN/PELVIS W IV CONT Observed: 09/17/2018 Status: F Source: [place] 11:06 AM [facility] [place] [facility] [place] [place] Imaging Services [address] [place] [address] Abdomen/Pelvis W IV Cont ONLY MR#: [id number] Acct: [id number] Name: SHON GARNER Rep #: [id number] : 1990 M 28 From: Leonardo Olvera DO PCP: Abran Winston MD Status: REG ER Study: Abdomen/Pelvis W IV Cont ONLY Date of Exam: 09/17/18 Exam# [id number] Ordering Dr: Karthikeyan Samaniego MD STUDY: CT ABDOMEN AND PELVIS WITH CONTRAST REASON FOR EXAM: Male, 28 years old. Abdominal pain. History of diverticulitis RADIATION DOSAGE (If Supplied By Facility): CTDIvol = ( 9.95 ) mGy, DLP = ( 727.07 ) mGycm TECHNIQUE: Transaxial images were obtained from the dome of the diaphragm to the symphysis pubis without oral contrast. 100CC ml of Isovue 300 contrast was administered. Sagittal and coronal images were reconstructed. Individualized dose optimization techniques were used for this CT. COMPARISON: 04/17/2018 FINDINGS: The visualized lung bases are unremarkable. The visualized portions of the heart are within normal limits. Normal liver. Normal gallbladder and extrahepatic biliary system. Normal spleen. Normal pancreas. Normal bilateral adrenal glands. Normal right kidney. Normal left kidney. Normal visualized stomach. Normal small intestine. Acute uncomplicated sigmoid diverticulitis with wall thickening and pericolonic fat stranding. The appendix is visualized and appears normal. Normal abdominal aorta. Normal inferior vena cava. Normal retroperitoneum. Normal urinary bladder. Normal visualized prostate gland. Normal abdominal wall. Normal osseous structures. CT/Abdomen/Pelvis W IV Cont ONLY IMPRESSION: Acute uncomplicated sigmoid diverticulitis Electronically Signed: Leonardo Olvera DO at 14:11 EST Tel , Service support , CC: Karthikeyan Samaniego MD; Abran Winston MD Manager Account Management: Signed PROGRESS Observed: 08/11/2018 Status: COMPLETED Source: [place] 7:[address] [facility] REPOSITORY HNO ID: [id number] Author: Ash Bose Service: (none) Author Type: Nurse Practitioner Type: Progress Notes Filed: 08/11/2018 12:32 PM Note Text: DEPARTMENT OF GASTROENTEROLOGY - NEW PATIENT/CONSULT REASON FOR VISIT Shon Garner is a 28 year old male who is scheduled at the request of Thalia Peguero for Abdominal Pain. My final recommendations will be communicated back to the requesting physician by the way of the shared medical record, fax, or via US Mail. HISTORY OF PRESENT ILLNESS Shon Garner is a 28 year old male who presents today for an evaluation of lower abdominal pain and constipation. Symptoms: Started 2 years ago Lower abdominal pain - pain is intermittent, not daily Constipation - typically BM once every 1-3 days, feels stool is thin, feels the urge to go more often but is unable to go, was started on miralax last week, this seems to be helping Hx gastric, hiatal hernia Heartburn - Zantac or omeprazole as needed Trying to eat a more healthy diet Recently treated for questionable diverticulitis - feels it helped symptoms 40% but did not have significant or fpc improvement CT Abd/pelvis 2015 - was treated with antibiotics IMPRESSION: Marked inflammation of the proximal to mid sigmoid colon which could be due to infection or inflammatory bowel disease Ct Abd/pelvis 04/2018 - was treated with antibiotics IMPRESSION: Small focal area of thickening and mild stranding in the sigmoid colon consistent with mild acute diverticulitis or colitis. No drainable abscess is seen. Otherwise no demonstrated acute process. The appendix is not definitely identified. PAST MEDICAL HISTORY Diagnosis Date - Chronic sinusitis 1999 - Colitis, acute 08/30/2016 - Diverticulitis of sigmoid colon 04/17/2018 - Gastritis 2007 - Hiatal hernia 2007 PAST SURGICAL HISTORY Procedure Laterality Date - EGD 2007 [place] Current Outpatient Prescriptions: fluticasone (FLONASE) 50 mcg/actuation nasal spray Use 2 Sprays in each nostril once daily. Rinse mouth after use. Disp: 1 Bottle Rfl: 5 No current facility-administered medications for this visit. ALLERGIES Allergen Reactions - Aspirin Swelling Eye swelling. NSAID okay. Social History Marital status: Single Spouse name: Years of education: Number of children: 1 Occupational History Occupation Employer Comment community nurse Social History Main Topics Smoking status: Never Smoker Smokeless tobacco: Never Used Alcohol use: Yes Comment: 1 beverage per month Drug use: No Sexual activity: Yes Partners with: Female Other Topics Concern Caffeine Concern Not Asked Comment:2-3 beverages daily Social History Narrative Grew up in [place]. Graduate of [employer]. FAMILY HISTORY (grandparents, parents, brothers, sisters, aunts, or uncles) Liver Problems: No Ulcerative Colitis: No Crohn's Disease: No Colon Cancer: No Colon Polyps: No IBS: No Celiac disease: No Bleeding Disorders: No GI SPECIFIC REVIEW OF SYMPTOMS Difficulty swallowing / foods sticking in throat: no Heartburn: yes Hoarseness: yes Chronic cough: yes Regurgitation: yes Chest pain: no Filling up quickly at meals:no Loss of appetite: no Nausea: no Vomiting: no Abdominal pain: yes lower abdomen Recent change in bowel movements: yes Bloody or black, bowel movements: no Constipation: yes Diarrhea: no Loss of control of bowel movements: no Night sweats: no Fever: no Chills: no Thought or memory problems: no Fluid in abdomen (ascites): no Prominent leg swelling: no Vomiting blood: no Recent change in weight: No REVIEW OF SYSTEMS Constitutional: Negative for fever, chills, and weight loss Eyes: Negative for vision changes and double vision ENT: Negative for ear pain, nasal discharge, and sore throat Heart: Negative for chest pain Lungs: Negative for shortness of breath and cough GI: See above Musculoskeletal: Negative for joint pain and swelling Neuro: Negative for numbness and tingling Skin: Negative for rashes, lesions, and jaundice Hematologic/Lymphatic: Negative for unusual bruising, bleeding, and swelling Psych: Negative for anxiety and depression PAST MEDICAL HISTORY Colon polyps: no Colon cancer: no Other cancer: no Radiation / Chemotherapy: no Crohn's disease / Ulcerative colitis: no High cholesterol or triglycerides: no Ulcers: yes Gallstones: no Hepatitis / Jaundice: no Heart Disease: no Lung Disease: no Liver problems: no Thyroid disease: no Kidney stones: no Pancreatitis: no Diabetes: no Arthritis: no Rheumatic fever: no Gastrointestinal bleeding: no Depression or other mental illness: no Other personal illness: denies PHYSICAL EXAMINATION BP 133/80 Pulse 64 Ht 5' 8.5 (1.74m) Wt 190 lb 12.8 oz (86.5kg) BMI 28.59 kg/(m2). General appearance: Appears well, alert, in no acute distress, well nourished. Skin: Skin color and temperature normal. No obvious rashes or lesions noted on exposed skin. Head: Normocephalic, atraumatic. No masses or lesions noted. Eyes: Anicteric sclera. Pupils are equally round. Ears: External ears normal Nose/Sinuses: Nares normal, no drainage Oropharynx: Lips normal, oropharynx moist. Adequate dentition. Neck: Supple, no adenopathy; thyroid symmetric, normal size Lungs: CTAB. Normal effort Heart: RRR, no murmurs. Abdomen: Soft, non-distended. Bowel sounds present. Mild lower abdominal tenderness. Extremities: No deformities or pitting pedal edema noted. Psych: Pleasant affect, cooperative, A+O x3. RECENT LABS CBC: WBC (k/uL) Date Value 05/14/2018 7.71 Hematocrit (%) Date Value 05/14/2018 46.2 MCV (fL) Date Value 05/14/2018 88.8 Platelet Count (k/uL) Date Value 05/14/2018 257 Lymph% (%) Date Value 05/14/2018 23.1 Comprehensive Metabolic Panel: Glucose (mg/dL) Date Value 05/14/2018 80 BUN (mg/dL) Date Value 05/14/2018 12 Creatinine (mg/dL) Date Value 05/14/2018 1.08 Sodium (mmol/L) Date Value 05/14/2018 139 Potassium (mmol/L) Date Value 05/14/2018 4.3 Chloride (mmol/L) Date Value 05/14/2018 99 CO2 (mmol/L) Date Value 05/14/2018 27 Protein, Total (g/dL) Date Value 05/14/2018 7.1 Albumin (g/dL) Date Value 05/14/2018 4.4 Calcium (mg/dL) Date Value 05/14/2018 9.6 Alkaline Phosphatase (U/L) Date Value 05/14/2018 74 Bilirubin, Total (mg/dL) Date Value 05/14/2018 0.6 AST (U/L) Date Value 05/14/2018 27 ALT (U/L) Date Value 05/14/2018 36 Assessment IMPRESSION Mr. Garner is a 28 year old year old male who presents with lower abdominal pain and constipation. He has had symptoms for about 2 years. Symptoms include lower abdominal pain and constipation having a BM every 1-2 days. He states that he feels like he needs togo more often but is unable to go. Additionally he has some heartburn as well. In [address] scan that showed some wall thickening questionable for colitis and was treated with antibiotics. More recently in 04/[address] that showed thickening questionable diverticulitis vs colitis. Pt has never had a colonoscopy. Hx gastritis on EGD several years ago in [place]. Will schedule EGD and colonoscopy with bx to further assess for IBD or gastritis. In the meantime advised pt to stay on miralax as it seems to help some and can try Bentyl as needed for the abdominal pain. Differential diagnosis includes: IBD, IBS-C, gastritis, PUD PLAN -EGD/Colonsocopy -Miralax daily -Bentyl as needed Plan is to follow up after test(s) Ash Bose APRN.CNP August 11, 2018 CHARLENE Observed: 08/11/2018 Status: COMPLETED Source: [place] 7:40 AM [facility] REPOSITORY Office Visit (GASTTW) SHON GARNER ([id number]) 1990 M Date Time Provider Department 08/11/18 7:40 AM ASH BOSE (PETTY) GAST[facility] During your visit today, we recorded the following information about you: Pulse Blood pressure Weight Height 64/minute 133/80 86.5 kg 1.74 m Ash Bose APRN.CNP 08/11/2018 12:32 PM Signed DEPARTMENT OF GASTROENTEROLOGY - NEW PATIENT/CONSULT REASON FOR VISIT Shon Garner is a 28 year old male who is scheduled at the request of Thalia Peguero for Abdominal Pain. My final recommendations will be communicated back to the requesting physician by the way of the shared medical record, fax, or via US Mail. HISTORY OF PRESENT ILLNESS Shon Garner is a 28 year old male who presents today for an evaluation of lower abdominal pain and constipation. Symptoms: Started 2 years ago Lower abdominal pain - pain is intermittent, not daily Constipation - typically BM once every 1-3 days, feels stool is thin, feels the urge to go more often but is unable to go, was started on miralax last week, this seems to be helping Hx gastric, hiatal hernia Heartburn - Zantac or omeprazole as needed Trying to eat a more healthy diet Recently treated for questionable diverticulitis - feels it helped symptoms 40% but did not have significant or termite renewal inspector improvement CT Abd/pelvis 2015 - was treated with antibiotics IMPRESSION: Marked inflammation of the proximal to mid sigmoid colon which could be due to infection or inflammatory bowel disease Ct Abd/pelvis 04/2018 - was treated with antibiotics IMPRESSION: Small focal area of thickening and mild stranding in the sigmoid colon consistent with mild acute diverticulitis or colitis. No drainable abscess is seen. Otherwise no demonstrated acute process. The appendix is not definitely identified. PAST MEDICAL HISTORY Diagnosis Date - Chronic sinusitis 1999 - Colitis, acute 08/30/2016 - Diverticulitis of sigmoid colon 04/17/2018 - Gastritis 2007 - Hiatal hernia 2007 PAST SURGICAL HISTORY Procedure Laterality Date - EGD 2007 [place] Current Outpatient Prescriptions: fluticasone (FLONASE) 50 mcg/actuation nasal spray Use 2 Sprays in each nostril once daily. Rinse mouth after use. Disp: 1 Bottle Rfl: 5 No current facility-administered medications for this visit. ALLERGIES Allergen Reactions - Aspirin Swelling Eye swelling. NSAID okay. Social History Marital status: Single Spouse name: Years of education: Number of children: 1 Occupational History Occupation Employer Comment community nurse Social History Main Topics Smoking status: Never Smoker Smokeless tobacco: Never Used Alcohol use: Yes Comment: 1 beverage per month Drug use: No Sexual activity: Yes Partners with: Female Other Topics Concern Caffeine Concern Not Asked Comment:2-3 beverages daily Social History Narrative Grew up in [place]. Graduate of [employer]. FAMILY HISTORY (grandparents, parents, brothers, sisters, aunts, or uncles) Liver Problems: No Ulcerative Colitis: No Crohn's Disease: No Colon Cancer: No Colon Polyps: No IBS: No Celiac disease: No Bleeding Disorders: No GI SPECIFIC REVIEW OF SYMPTOMS Difficulty swallowing / foods sticking in throat: no Heartburn: yes Hoarseness: yes Chronic cough: yes Regurgitation: yes Chest pain: no Filling up quickly at meals:no Loss of appetite: no Nausea: no Vomiting: no Abdominal pain: yes lower abdomen Recent change in bowel movements: yes Bloody or black, bowel movements: no Constipation: yes Diarrhea: no Loss of control of bowel movements: no Night sweats: no Fever: no Chills: no Thought or memory problems: no Fluid in abdomen (ascites): no Prominent leg swelling: no Vomiting blood: no Recent change in weight: No REVIEW OF SYSTEMS Constitutional: Negative for fever, chills, and weight loss Eyes: Negative for vision changes and double vision ENT: Negative for ear pain, nasal discharge, and sore throat Heart: Negative for chest pain Lungs: Negative for shortness of breath and cough GI: See above Musculoskeletal: Negative for joint pain and swelling Neuro: Negative for numbness and tingling Skin: Negative for rashes, lesions, and jaundice Hematologic/Lymphatic: Negative for unusual bruising, bleeding, and swelling Psych: Negative for anxiety and depression PAST MEDICAL HISTORY Colon polyps: no Colon cancer: no Other cancer: no Radiation / Chemotherapy: no Crohn's disease / Ulcerative colitis: no High cholesterol or triglycerides: no Ulcers: yes Gallstones: no Hepatitis / Jaundice: no Heart Disease: no Lung Disease: no Liver problems: no Thyroid disease: no Kidney stones: no Pancreatitis: no Diabetes: no Arthritis: no Rheumatic fever: no Gastrointestinal bleeding: no Depression or other mental illness: no Other personal illness: denies PHYSICAL EXAMINATION BP 133/80 Pulse 64 Ht 5' 8.5 (1.74m) Wt 190 lb 12.8 oz (86.5kg) BMI 28.59 kg/(m2). General appearance: Appears well, alert, in no acute distress, well nourished. Skin: Skin color and temperature normal. No obvious rashes or lesions noted on exposed skin. Head: Normocephalic, atraumatic. No masses or lesions noted. Eyes: Anicteric sclera. Pupils are equally round. Ears: External ears normal Nose/Sinuses: Nares normal, no drainage Oropharynx: Lips normal, oropharynx moist. Adequate dentition. Neck: Supple, no adenopathy; thyroid symmetric, normal size Lungs: CTAB. Normal effort Heart: RRR, no murmurs. Abdomen: Soft, non-distended. Bowel sounds present. Mild lower abdominal tenderness. Extremities: No deformities or pitting pedal edema noted. Psych: Pleasant affect, cooperative, A+O x3. RECENT LABS CBC: WBC (k/uL) Date Value 05/14/2018 7.71 Hematocrit (%) Date Value 05/14/2018 46.2 MCV (fL) Date Value 05/14/2018 88.8 Platelet Count (k/uL) Date Value 05/14/2018 257 Lymph% (%) Date Value 05/14/2018 23.1 Comprehensive Metabolic Panel: Glucose (mg/dL) Date Value 05/14/2018 80 BUN (mg/dL) Date Value 05/14/2018 12 Creatinine (mg/dL) Date Value 05/14/2018 1.08 Sodium (mmol/L) Date Value 05/14/2018 139 Potassium (mmol/L) Date Value 05/14/2018 4.3 Chloride (mmol/L) Date Value 05/14/2018 99 CO2 (mmol/L) Date Value 05/14/2018 27 Protein, Total (g/dL) Date Value 05/14/2018 7.1 Albumin (g/dL) Date Value 05/14/2018 4.4 Calcium (mg/dL) Date Value 05/14/2018 9.6 Alkaline Phosphatase (U/L) Date Value 05/14/2018 74 Bilirubin, Total (mg/dL) Date Value 05/14/2018 0.6 AST (U/L) Date Value 05/14/2018 27 ALT (U/L) Date Value 05/14/2018 36 Assessment IMPRESSION Mr. Garner is a 28 year old year old male who presents with lower abdominal pain and constipation. He has had symptoms for about 2 years. Symptoms include lower abdominal pain and constipation having a BM every 1-2 days. He states that he feels like he needs togo more often but is unable to go. Additionally he has some heartburn as well. In [address] scan that showed some wall thickening questionable for colitis and was treated with antibiotics. More recently in 04/[address] that showed thickening questionable diverticulitis vs colitis. Pt has never had a colonoscopy. Hx gastritis on EGD several years ago in [place]. Will schedule EGD and colonoscopy with bx to further assess for IBD or gastritis. In the meantime advised pt to stay on miralax as it seems to help some and can try Bentyl as needed for the abdominal pain. Differential diagnosis includes: IBD, IBS-C, gastritis, PUD PLAN -EGD/Colonsocopy -Miralax daily -Bentyl as needed Plan is to follow up after test(s) Ash Bose APRN.CNP August 11, 2018 Ash Bose APRN.CNP 08/11/2018 8:30 AM Addendum Schedule EGD/Colonoscopy Continue Miralax Bentyl as needed for abdominal pain GENERAL ANESTHESIA How to Prepare for Your Colonoscopy Using Golytely, Nulytely, Trilyte, or Colyte Preparations IMPORTANT - Please Read These Instructions at Least 2 Weeks Before Your Colonoscopy Piña Instructions: Your bowel must be empty so that your doctor can clearly view your colon. Follow all of the instructions in this handout EXACTLY as they are written. If you do NOT follow the directions for when to start drinking the bowel preparation (see next page), your colonoscopy WILL be cancelled. ? Do NOT eat any solid food the ENTIRE day before your colonoscopy. ? Buy your bowel preparation at least 5 days before your colonoscopy. ? Do NOT mix the solution until the day before your colonoscopy. Designated Violin Teacher on the Day of Your Exam A responsible family member or friend MUST come with you to your colonoscopy and REMAIN in the endoscopy area until you are discharged! You are NOT ALLOWED to drive, take a taxi or bus, or leave the Endoscopy Center ALONE. If you do not have a responsible non emergency services ambulance driver (family member or friend) with you to take you home, your exam can not be done with sedation and will be cancelled. Medications Some of the medicines you take may need to be stopped or adjusted before your colonoscopy. You MUST call the doctor who ordered any of the following medicines at least 2 weeks before your colonoscopy. ? Blood Thinners -- such as Coumadin? (warfarin), Plavix ? (clopidogrel), Ticlid ? (ticlopidine hydrochloride), Agrylin ? (anagrelide), Xarelto (rivaroxaban), Pradaxa (dabigatran), and Effient (Prasugrel). ? Insulin or diabetes pills. Please call the doctor that monitors your glucose levels. Your insulin dosage may need to be adjusted due to diet restrictions required with this bowel preparation. (Please bring your diabetes medications with you on the day of your procedure.) If you take aspirin, continue it and ALL other medications prescribed by your doctor. On the day of your colonoscopy, take your medications with a sip of water. Five (5) Days Before Your Colonoscopy Do NOT take medications that stop diarrhea-- such as Imodium?, Kaopectate?, or Pepto Bismol?. Do NOT take fiber supplements--such as Metamucil?, Citrucel?, or Perdiem?. Do NOT take products that contain iron--such as multi-vitamins--(the label lists what is in the products). Do NOT take vitamin E. Buy the prescription bowel preparation at your local pharmacy or drugstore. Three (3) Days Before Your Colonoscopy Do NOT eat high-fiber foods--such as popcorn, beans, seeds (flax, sunflower, quinoa), multigrain bread, nuts, salad/vegetables, or fresh and dried fruit. One (1) Day Before Your Colonoscopy Only drink clear liquids the ENTIRE DAY before your colonoscopy. Do NOT eat any solid foods. Drink at least 8 ounces of clear liquids every hour after waking up. The clear liquids you can drink include: ? water, apple or white grape juice; broth; coffee or tea (without milk or creamer); clear carbonated beverages such as loretta lisa or lemon-lovelock soda; Gatorade? or other sports drinks (not red); Daniel-Aid? or other flavored drinks (not red); plain jello or other gelatins (not red); popsicles (not red) ? Do NOT drink alcohol on the day before or the day of the procedure. When to Mix and Drink Your Bowel Preparation Follow the instructions on the label. After mixing, place the solution in the refrigerator for a couple of hours before drinking. You may add the flavor packet that came with the bowel preparation. DO NOT add ice, sugar or any flavorings to the solution. Evening before Colonoscopy Start drinking the bowel preparation at 6 PM the evening before your colonoscopy. Drink an 8 oz glass of bowel preparation every 10 minutes. You must finish drinking the solution by 9 PM the night before your scheduled procedure. You may continue to drink clear liquids only until midnight. Do NOT eat or drink ANYTHING after midnight the night before your procedure, or your procedure may be cancelled. This is for your safety and will reduce the risk of having any food or liquid in your stomach move into your lungs (aspiration) during a procedure. If you take aspirin, take it and ALL other prescribed medicines with a sip of water on the day of your colonoscopy. Contact Information If you are unable to keep your appointment or have any questions about the instructions, please call the facility where the procedure is being performed. Call between the hours of 8:00 AM and 5:00 PM. If you are calling after 5:00 PM, please call Nurse elevator conductor at [phone]. COLONOSCOPY PROCEDURE OVERVIEW Please read prior to the procedure What is a Colonoscopy? A colonoscopy is an outpatient procedure in which the inside of the large intestine (colon and rectum) is examined. A colonoscopy is commonly used to evaluate gastrointestinal symptoms, such as rectal and intestinal bleeding, abdominal pain, or changes in bowel habits. Colonoscopies are also performed in individuals without symptoms to check for colorectal polyps or cancer. A screening colonoscopy is recommended for anyone 50 years of age and older, and for anyone with parents, siblings or children with a history of colorectal cancer or polyps. What happens before a colonoscopy? To have a successful colonoscopy, your bowel must be empty so that your physician can clearly view the colon. To do this, it is very important to read and follow all of the instructions given to you at least 2 weeks BEFORE your exam. If your bowel is not empty, your colonoscopy will not be successful and may have to be repeated. If you feel nauseated or vomit while taking the bowel preparation, wait 30 minutes before drinking more fluid and start with small sips of solution. Some activity (such as walking) or a few soda crackers may help decrease the nausea you are feeling. If the nausea persists, please contact nurse solution design engineer at [phone]. You may experience skin irritation around the anus due to the passage of liquid stools. To prevent and treat skin irritation, you should: Apply Vaseline or Desitin ointment to the skin around the anus before drinking the bowel preparation medications. These products can be purchased at any drug store. Wipe the skin after each bowel movement with disposable wet wipes instead of toilet paper. These are found in the toilet paper area of the store. Sit in a bathtub filled with warm water for 10 to 15 minutes after you finish passing a stool; after soaking, blot the skin dry with a soft cloth, apply Vaseline or Desitin ointment to the anal area, and place a cotton ball just outside your anus to absorb leaking fluid. What happens during a colonoscopy? During a colonoscopy, an experienced physician uses a colonoscope (a long, flexible instrument about 1/2 inch in diameter) to view the lining of the colon. The colonoscope is inserted into the rectum and advanced through the large intestine. If necessary during a colonoscopy, small amounts of tissue can be removed for analysis (a biopsy) and polyps can be identified and entirely removed. In many cases, a colonoscopy allows accurate diagnosis and treatment of colorectal problems without the need for a major operation. You are asked to wear a hospital gown and an IV will be started. You are given a pain reliever and a sedative intravenously (in your vein). You will feel relaxed and somewhat drowsy. You will lie on your left side, with your knees drawn up towards your chest. A small amount of air is used to expand the colon so the physician can see the colon browning. You may feel mild cramping during the procedure. Cramping can be reduced by taking slow, deep breaths. The colonoscope is slowly withdrawn while the lining of your bowel is carefully examined. The procedure lasts from 30 minutes to 1 hour. What happens after a colonoscopy? You will stay in a recovery room for observation until you are ready for discharge. You may feel some cramping or a sensation of having gas, but this quickly passes. If sedation has been given, a responsible non emergency services ambulance driver (a family member or friend) must drive you home. Avoid alcohol, driving, and operating machinery for 24 hours following the procedure. Unless otherwise instructed, you may immediately return to your normal diet. We recommend you wait until the day after your procedure to resume normal activities. If polyps were removed or a biopsy was taken, the physician performing your colonoscopy will tell you when it is safe to resume taking your blood thinners. If a biopsy was taken or a polyp was removed, you may notice a little amount of rectal bleeding for 1 to 2 days after the procedure. If you have a large amount of rectal bleeding, high or persistent fevers, or severe abdominal pain within the next 2 weeks, please go to your local emergency room and call the physician who performed your exam. Referring Provider: THALIA PEGUERO ([facility]) [[id number]] Allergies As of Date: 08/11/2018 Noted Allergy Reaction ASPIRIN 08/30/2016 7 - Swelling Comments: Eye swelling. NSAID okay. Date Reviewed: 08/11/2018 Reviewed by: Katelynn Williamson LPN - Fully Assessed Reason for Visit: Abdominal Pain [1] Primary Visit Diagnosis:Lower abdominal pain [R10.30] Other Visit Diagnoses:Constipation, unspecified constipation type [K59.00] Change in bowel habits [R19.4] Gastroesophageal reflux disease, esophagitis presence not specified [K21.9] Order(s):[facility] ED DIGESTIVE DISEASES [] Order #: [id number]: 1 peg 3350-Electrolytes (GOLYTELY) 236-22.74-6.74 - 5.86 gram suspensionTake 4,000 mL by mouth one time only for 1 dose. Refer to printed prep instructions from your doctor.Disp: 1 BottleRfl: 0 EGD GEN ANES [1035430] Order #: [id number] FUTURE COLONOSCOPY GEN ANES [[id number]] Order #: [id number] FUTURE dicyclomine (BENTYL) 20 mg tabletTake 1 tablet by mouth three times daily as needed (abdominal pain).Disp: 30 tabletRfl: 2 [facility] ED DIGESTIVE DISEASES [] Order #: [id number]. #:[id number]: 1 Prescriptions as of 08/11/2018 Sig: FLUTICASONE 50 MCG/ACTUATION * Use 2 Sprays in each nostril * PEG 3350-ELECTROLYTES 236 GRA* Take 4,000 mL by mouth one ti* DICYCLOMINE 20 MG TABLET Take 1 tablet by mouth three * Problem List As Of Date 08/11/2018 Noted Resolved Gastritis [K29.70] Hiatal hernia [K44.9] Tinnitus of both ears [H93.13] INVALID FOR* Cervicalgia [M54.2] INVALID FOR* Other instructions from your clinician: Schedule EGD/Colonoscopy Continue Miralax Bentyl as needed for abdominal pain GENERAL ANESTHESIA How to Prepare for Your Colonoscopy Using Golytely, Nulytely, Trilyte, or Colyte Preparations IMPORTANT - Please Read These Instructions at Least 2 Weeks Before Your Colonoscopy Piña Instructions: Your bowel must be empty so that your doctor can clearly view your colon. Follow all of the instructions in this handout EXACTLY as they are written. If you do NOT follow the directions for when to start drinking the bowel preparation (see next page), your colonoscopy WILL be cancelled. ? Do NOT eat any solid food the ENTIRE day before your colonoscopy. ? Buy your bowel preparation at least 5 days before your colonoscopy. ? Do NOT mix the solution until the day before your colonoscopy. Designated Violin Teacher on the Day of Your Exam A responsible family member or friend MUST come with you to your colonoscopy and REMAIN in the endoscopy area until you are discharged! You are NOT ALLOWED to drive, take a taxi or bus, or leave the Endoscopy Center ALONE. If you do not have a responsible non emergency services ambulance driver (family member or friend) with you to take you home, your exam can not be done with sedation and will be cancelled. Medications Some of the medicines you take may need to be stopped or adjusted before your colonoscopy. You MUST call the doctor who ordered any of the following medicines at least 2 weeks before your colonoscopy. ? Blood Thinners -- such as Coumadin? (warfarin), Plavix ? (clopidogrel), Ticlid ? (ticlopidine hydrochloride), Agrylin ? (anagrelide), Xarelto (rivaroxaban), Pradaxa (dabigatran), and Effient (Prasugrel). ? Insulin or diabetes pills. Please call the doctor that monitors your glucose levels. Your insulin dosage may need to be adjusted due to diet restrictions required with this bowel preparation. (Please bring your diabetes medications with you on the day of your procedure.) If you take aspirin, continue it and ALL other medications prescribed by your doctor. On the day of your colonoscopy, take your medications with a sip of water. Five (5) Days Before Your Colonoscopy Do NOT take medications that stop diarrhea-- such as Imodium?, Kaopectate?, or Pepto Bismol?. Do NOT take fiber supplements--such as Metamucil?, Citrucel?, or Perdiem?. Do NOT take products that contain iron--such as multi-vitamins--(the label lists what is in the products). Do NOT take vitamin E. Buy the prescription bowel preparation at your local pharmacy or drugstore. Three (3) Days Before Your Colonoscopy Do NOT eat high-fiber foods--such as popcorn, beans, seeds (flax, sunflower, quinoa), multigrain bread, nuts, salad/vegetables, or fresh and dried fruit. One (1) Day Before Your Colonoscopy Only drink clear liquids the ENTIRE DAY before your colonoscopy. Do NOT eat any solid foods. Drink at least 8 ounces of clear liquids every hour after waking up. The clear liquids you can drink include: ? water, apple or white grape juice; broth; coffee or tea (without milk or creamer); clear carbonated beverages such as loretta lisa or lemon-lovelock soda; Gatorade? or other sports drinks (not red); Daniel- Aid? or other flavored drinks (not red); plain jello or other gelatins (not red); popsicles (not red) ? Do NOT drink alcohol on the day before or the day of the procedure. When to Mix and Drink Your Bowel Preparation Follow the instructions on the label. After mixing, place the solution in the refrigerator for a couple of hours before drinking. You may add the flavor packet that came with the bowel preparation. DO NOT add ice, sugar or any flavorings to the solution. Evening before Colonoscopy Start drinking the bowel preparation at 6 PM the evening before your colonoscopy. Drink an 8 oz glass of bowel preparation every 10 minutes. You must finish drinking the solution by 9 PM the night before your scheduled procedure. You may continue to drink clear liquids only until midnight. Do NOT eat or drink ANYTHING after midnight the night before your procedure, or your procedure may be cancelled. This is for your safety and will reduce the risk of having any food or liquid in your stomach move into your lungs (aspiration) during a procedure. If you take aspirin, take it and ALL other prescribed medicines with a sip of water on the day of your colonoscopy. Contact Information If you are unable to keep your appointment or have any questions about the instructions, please call the facility where the procedure is being performed. Call between the hours of 8:00 AM and 5:00 PM. If you are calling after 5:00 PM, please call Nurse elevator conductor at [phone]. COLONOSCOPY PROCEDURE OVERVIEW Please read prior to the procedure What is a Colonoscopy? A colonoscopy is an outpatient procedure in which the inside of the large intestine (colon and rectum) is examined. A colonoscopy is commonly used to evaluate gastrointestinal symptoms, such as rectal and intestinal bleeding, abdominal pain, or changes in bowel habits. Colonoscopies are also performed in individuals without symptoms to check for colorectal polyps or cancer. A screening colonoscopy is recommended for anyone 50 years of age and older, and for anyone with parents, siblings or children with a history of colorectal cancer or polyps. What happens before a colonoscopy? To have a successful colonoscopy, your bowel must be empty so that your physician can clearly view the colon. To do this, it is very important to read and follow all of the instructions given to you at least 2 weeks BEFORE your exam. If your bowel is not empty, your colonoscopy will not be successful and may have to be repeated. If you feel nauseated or vomit while taking the bowel preparation, wait 30 minutes before drinking more fluid and start with small sips of solution. Some activity (such as walking) or a few soda crackers may help decrease the nausea you are feeling. If the nausea persists, please contact nurse solution design engineer at [phone]. You may experience skin irritation around the anus due to the passage of liquid stools. To prevent and treat skin irritation, you should: Apply Vaseline or Desitin ointment to the skin around the anus before drinking the bowel preparation medications. These products can be purchased at any drug store. Wipe the skin after each bowel movement with disposable wet wipes instead of toilet paper. These are found in the toilet paper area of the store. Sit in a bathtub filled with warm water for 10 to 15 minutes after you finish passing a stool; after soaking, blot the skin dry with a soft cloth, apply Vaseline or Desitin ointment to the anal area, and place a cotton ball just outside your anus to absorb leaking fluid. What happens during a colonoscopy? During a colonoscopy, an experienced physician uses a colonoscope (a long, flexible instrument about 1/2 inch in diameter) to view the lining of the colon. The colonoscope is inserted into the rectum and advanced through the large intestine. If necessary during a colonoscopy, small amounts of tissue can be removed for analysis (a biopsy) and polyps can be identified and entirely removed. In many cases, a colonoscopy allows accurate diagnosis and treatment of colorectal problems without the need for a major operation. You are asked to wear a hospital gown and an IV will be started. You are given a pain reliever and a sedative intravenously (in your vein). You will feel relaxed and somewhat drowsy. You will lie on your left side, with your knees drawn up towards your chest. A small amount of air is used to expand the colon so the physician can see the colon browning. You may feel mild cramping during the procedure. Cramping can be reduced by taking slow, deep breaths. The colonoscope is slowly withdrawn while the lining of your bowel is carefully examined. The procedure lasts from 30 minutes to 1 hour. What happens after a colonoscopy? You will stay in a recovery room for observation until you are ready for discharge. You may feel some cramping or a sensation of having gas, but this quickly passes. If sedation has been given, a responsible non emergency services ambulance driver (a family member or friend) must drive you home. Avoid alcohol, driving, and operating machinery for 24 hours following the procedure. Unless otherwise instructed, you may immediately return to your normal diet. We recommend you wait until the day after your procedure to resume normal activities. If polyps were removed or a biopsy was taken, the physician performing your colonoscopy will tell you when it is safe to resume taking your blood thinners. If a biopsy was taken or a polyp was removed, you may notice a little amount of rectal bleeding for 1 to 2 days after the procedure. If you have a large amount of rectal bleeding, high or persistent fevers, or severe abdominal pain within the next 2 weeks, please go to your local emergency room and call the physician who performed your exam. Prescriptions ordered this encounter Disp Refills Start End PEG 3350-ELECTROLYTES 236 GRAM-22.74* 1 Daniel* 0 08/11/2018 08/11/2018 Route: ORAL Sig: Take 4,000 mL by mouth one time only for 1 dose. Refer to printed prep instructions from your doctor. DICYCLOMINE 20 MG TABLET 30 t* 2 08/11/2018 Route: ORAL Sig: Take 1 tablet by mouth three times daily as needed (abdominal pain). Encounter Status:Closed by ASH BOSE on 08/11/18 CHARLENE Observed: 08/01/2018 Status: COMPLETED Source: [place] 1:40 PM [facility] REPOSITORY Office Visit (INTMWS) SHON GARNER ([id number]) 1990 M Date Time Provider Department 08/01/18 1:40 PM O[facility]ER[facility] (PETTY) INTMWS During your visit today, we recorded the following information about you: Temperature Pulse Respiration Blood pressure 97.5 degrees 64/minute 12/minute 120/78 Weight 86.6 kg Thalia Mark ALIYAH 08/01/2018 1:57 PM Signed CC Patient presents with: Abdominal Pain: going to bathroom more freq. cramping. HPI Shon Garner is a 28 year old male who presents with abdominal pain. He was diagnosed with colitis in [address] [place] and then a few months ago diagnosed with diverticulitis in the ER. Both times treated with Flagyl and Cipro, symptoms resolved. Since last ER visit patient has had intermittent lower abdominal cramping associated with bowel movements, constipation, pencil like stools and incomplete emptying of bowels. Other associated symptoms: nausea, occasional blood with BM from straining He has tried increasing fiber in diet and drinking more water to treat constipation, does not seem to work. Occasionally takes OTC laxatives which only helps a little. GI history: Gastritis diagnosed by EGD in [place]. Family history: Unsure REVIEW OF SYSTEMS General: no fevers, no chills, no night sweats, no change in appetite, no change in energy and no significant changes in weight PAST MEDICAL HISTORY Diagnosis Date - Chronic sinusitis 1999 - Colitis, acute 08/30/2016 - Diverticulitis of sigmoid colon 04/17/2018 - Gastritis 2007 - Hiatal hernia 2007 PAST SURGICAL HISTORY Procedure Laterality Date - EGD 2007 [place] ALLERGIES Aspirin MEDICATIONS fluticasone (FLONASE) 50 mcg/actuation nasal spray Use 2 Sprays in each nostril once daily. Rinse mouth after use. FAMILY HISTORY Problem Relation Age of Onset - Heart Father [place] @ 64 years, living - Diabetes Father - Hypertension Father - Diabetes Maternal Grandmother - Heart Maternal Grandfather d/t [place] @ 48 years - Heart Paternal Uncle - Heart Paternal Uncle - Heart Paternal Uncle - Heart disease Brother - Hyperlipidemia Brother Social History Substance Use Topics - Smoking status: Never Smoker - Smokeless tobacco: Never Used - Alcohol use Yes Comment: 1 beverage per month PHYSICAL EXAM BP 120/78 Pulse 64 Temp 36.4 ?C (97.5 ?F) Resp 12 Wt 86.6 kg (191 lb) SpO2 99% BMI 28.41 kg/m? General Appearance: well appearing, in no acute distress, alert Lungs: Lungs clear to auscultation. No wheezing, rhonchi, rales Heart: RRR without murmur, gallop, or rubs. No ectopy Abdomen: Abdomen soft, non-distended. mild lower abdominal tenderness with palpation. No guarding or rebound tenderness. Bowel sounds normal and active. No masses, organomegaly. ASSESSMENT/PLAN: 1. Lower abdominal pain - ICD9: 789.09, ICD10: R10.30 (primary diagnosis) Differential Diagnosis includes IBS, Constipation and inflammatory bowel disease - CONSULT TO GASTROENTEROLOGY for further evaluation and recommendations. Patient advised he will likely need a colonoscopy - Discussed treatment for constipation. Start Miralax, see patient instructions - Follow-up in office as needed 2. Constipation, unspecified constipation type - ICD9: 564.00, ICD10: K59.00 As above - CONSULT TO GASTROENTEROLOGY Prescription instructions reviewed with patient as applicable. Potential red flag symptoms discussed with the patient. Reviewed appropriate action plan to take if red flag symptoms occur. Patient agreeable to treatment plan. Thalia Peguero APRN.PETTY Peguero APRN.CNP 08/01/2018 1:51 PM Signed 1. Increase your intake of fluids daily. Try to include 8 - 8 ounce glasses per day. Sip on fluids throughout the day. 2. Add more fiber to your diet. Examples of high fiber foods include whole grain breads and cereals, fruits (berries, prunes, oranges, etc) and vegetables (lettuce, broccoli, potato with skins, etc.). 3. Increase your daily activity (walking, moving from bed to chair, or exercise in bed) 4. Set aside a time preferably around the same time each day (example: right after breakfast) to move bowels. 5. Start Miralax daily Referring Provider: SELF [[id number]] Allergies As of Date: 08/01/2018 Noted Allergy Reaction ASPIRIN 08/30/2016 7 - Swelling Comments: Eye swelling. NSAID okay. Date Reviewed: 08/01/2018 Reviewed by: Nicky Peterson) JAY Damon - Fully Assessed Reason for Visit: Abdominal Pain [1] Cmt: going to bathroom more freq. cramping. Reason For Visit History Recorded Primary Visit Diagnosis:Lower abdominal pain [R10.30] Other Visit Diagnosis:Constipation, unspecified constipation type [K59.00] Order(s):CONSULT TO GASTROENTEROLOGY [9010] Order #: [id number]: 1 Prescriptions as of 08/01/2018 Sig: FLUTICASONE 50 MCG/ACTUATION * Use 2 Sprays in each nostril * Problem List As Of Date 08/01/2018 Noted Resolved Gastritis [K29.70] Hiatal hernia [K44.9] Tinnitus of both ears [H93.13] INVALID FOR* Cervicalgia [M54.2] INVALID FOR* Other instructions from your clinician: 1. Increase your intake of fluids daily. Try to include 8 - 8 ounce glasses per day. Sip on fluids throughout the day. 2. Add more fiber to your diet. Examples of high fiber foods include whole grain breads and cereals, fruits (berries, prunes, oranges, etc) and vegetables (lettuce, broccoli, potato with skins, etc.). 3. Increase your daily activity (walking, moving from bed to chair, or exercise in bed) 4. Set aside a time preferably around the same time each day (example: right after breakfast) to move bowels. 5. Start Miralax daily Encounter Status:Closed by THALIA PEGUERO CNP on 08/01/18 PROGRESS Observed: 08/01/2018 Status: COMPLETED Source: [place] 1:36 PM [facility] O ID: [id number] Author: Thalia Peguero Service: (none) Author Type: Nurse Practitioner Type: Progress Notes Filed: 08/01/2018 1:57 PM Note Text: CC Patient presents with: Abdominal Pain: going to bathroom more freq. cramping. HPI Shon Garner is a 28 year old male who presents with abdominal pain. He was diagnosed with colitis in [address] scan and then a few months ago diagnosed with diverticulitis in the ER. Both times treated with Flagyl and Cipro, symptoms resolved. Since last ER visit patient has had intermittent lower abdominal cramping associated with bowel movements, constipation, pencil like stools and incomplete emptying of bowels. Other associated symptoms: nausea, occasional blood with BM from straining He has tried increasing fiber in diet and drinking more water to treat constipation, does not seem to work. Occasionally takes OTC laxatives which only helps a little. GI history: Gastritis diagnosed by EGD in [place]. Family history: Unsure REVIEW OF SYSTEMS General: no fevers, no chills, no night sweats, no change in appetite, no change in energy and no significant changes in weight PAST MEDICAL HISTORY Diagnosis Date - Chronic sinusitis 1999 - Colitis, acute 08/30/2016 - Diverticulitis of sigmoid colon 04/17/2018 - Gastritis 2007 - Hiatal hernia 2007 PAST SURGICAL HISTORY Procedure Laterality Date - EGD 2007 [place] ALLERGIES Aspirin MEDICATIONS fluticasone (FLONASE) 50 mcg/actuation nasal spray Use 2 Sprays in each nostril once daily. Rinse mouth after use. FAMILY HISTORY Problem Relation Age of Onset - Heart Father [place] @ 64 years, living - Diabetes Father - Hypertension Father - Diabetes Maternal Grandmother - Heart Maternal Grandfather d/t [place] @ 48 years - Heart Paternal Uncle - Heart Paternal Uncle - Heart Paternal Uncle - Heart disease Brother - Hyperlipidemia Brother Social History Substance Use Topics - Smoking status: Never Smoker - Smokeless tobacco: Never Used - Alcohol use Yes Comment: 1 beverage per month PHYSICAL EXAM BP 120/78 Pulse 64 Temp 36.4 ?C (97.5 ?F) Resp 12 Wt 86.6 kg (191 lb) SpO2 99% BMI 28.41 kg/m? General Appearance: well appearing, in no acute distress, alert Lungs: Lungs clear to auscultation. No wheezing, rhonchi, rales Heart: RRR without murmur, gallop, or rubs. No ectopy Abdomen: Abdomen soft, non-distended. mild lower abdominal tenderness with palpation. No guarding or rebound tenderness. Bowel sounds normal and active. No masses, organomegaly. ASSESSMENT/PLAN: 1. Lower abdominal pain - ICD9: 789.09, ICD10: R10.30 (primary diagnosis) Differential Diagnosis includes IBS, Constipation and inflammatory bowel disease - CONSULT TO GASTROENTEROLOGY for further evaluation and recommendations. Patient advised he will likely need a colonoscopy - Discussed treatment for constipation. Start Miralax, see patient instructions - Follow-up in office as needed 2. Constipation, unspecified constipation type - ICD9: 564.00, ICD10: K59.00 As above - CONSULT TO GASTROENTEROLOGY Prescription instructions reviewed with patient as applicable. Potential red flag symptoms discussed with the patient. Reviewed appropriate action plan to take if red flag symptoms occur. Patient agreeable to treatment plan. Thalia Peguero, CLEAN ROOM OPERATOR.CORPORATE WEBMASTER CBC AND DIFFERENTIAL Collected: 05/14/2018 Status: F Source: [place] 12:22 PM [facility] REPOSITORY TYPE CODE TESTS RESULT OUT OF REFERENCE UNITS RANGE LAB WBC 3.70-11.00 k/uL WBC 7.71 LAB RBC 4.20-6.00 m/uL RBC 5.20 LAB HGB 13.0-17.0 g/dL Hemoglobin 14.8 LAB HCT 39.0-51.0 % Hematocrit 46.2 LAB MCV 80.0-100.0 fL MCV 88.8 LAB MCH 26.0-34.0 pG MCH 28.5 LAB MCHC 30.5-36.0 g/dL MCHC 32.0 LAB RDWCV 11.5-15.0 % RDW-CV 13.7 LAB PLTCT 150-400 k/uL Platelet Count 257 LAB MPV 9.0-12.7 fL MPV 11.4 LAB ANEUT % Neut% 61.7 LAB AANEUT 1.45-7.50 k/uL Abs Neut 4.73 LAB ALYMP % Lymph% 23.1 LAB AALYMP 1.00-4.00 k/uL Abs Lymph 1.78 LAB AMONO % [place]% 11.9 LAB AAMONO <0.87 k/uL Abs [place] High 0.92 LAB AEOS % Eosin% 2.7 LAB AAEOS <0.46 k/uL Abs Eosin 0.21 LAB ABASO % Baso% 0.6 LAB AABASO <0.11 k/uL Abs Baso 0.05 LAB AUNRBC 0 /100 WBC NRBCs 0.0 LAB ABNRBC <0.01 k/uL Absolute nRBC <0.01 LAB DTYP DTYPE Auto Diff Performed By: #### CBCDIF, CMP #### [facility] [address] [place] [address] COMP METABOLIC PANEL Collected: 05/14/2018 Status: F Source: [place] 12:22 PM [facility] REPOSITORY TYPE CODE TESTS RESULT OUT OF REFERENCE UNITS RANGE LAB TP 6.3-8.0 g/dL Protein, Total 7.1 LAB ALB 3.9-4.9 g/dL Albumin 4.4 LAB CA 8.5-10.2 mg/dL Calcium, Total 9.6 LAB TBIL 0.2-1.3 mg/dL Bilirubin, Total 0.6 LAB ALKP 36-108 U/L Alkaline Phosphatase 74 LAB AST 14-40 U/L AST 27 LAB GLU 74-99 mg/dL Glucose 80 Result Comment: The [place] Diabetes Association (ADA) provides guidance for cutoff values for fasting glucose and random glucose. The ADA defines fasting as no caloric intake for at least 8 hours. Fas ting plasma glucose results between 100 to 125 mg/dL indicate increased risk for diabetes (prediabetes). Fasting plasma glucose results greater than or equal to 126 mg/dL meet the criteria for diagnosis of diabetes. In the absence of unequivocal hyperglycemia, results should be confirmed by repeat testing. In a patient with classic symptoms of hyperglycemia or hyperglycemic crisis, random plasma glucose results greater than or equal to 200 mg/dL meet the criteria for diagnosis of diabetes. Reference: Standards of Medical Care in Diabetes 2016, [place] Diabetes Association. Diabetes Care. 2016.39(Suppl 1). LAB BUN 9-24 mg/dL BUN 12 LAB CRET 0.73-1.22 mg/dL Creatinine 1.08 LAB NA 136-144 mmol/L Sodium 139 LAB K 3.7-5.1 mmol/L Potassium 4.3 LAB CL 97-105 mmol/L Chloride 99 LAB CO2 22-30 mmol/L CO2 27 LAB AGAP 9-18 mmol/L Anion Gap 13 LAB ALT 10-54 U/L ALT 36 LAB GFRAA eGFR- Amer. >60 LAB GFRNAA . eGFR-All Other Races >60 Result Comment: eGFR (Estimated GFR) Units of measure: mL/min/1.73 meters squared eGFR is derived from the reexpressed MDRD Study equation using the following parameters: serum creatinine, age, gender and race. The creatinine assay has been calibrated to be traceable to IDMS. An eGFR <60 mL/min/1.73m2 for >3 months is consistent with chronic kidney disease. Refer to KDOQI guidelines for clinical interpretation. In patients with unstable renal function, e.g. those with acute kidney injury, the eGFR may not accurately reflect actual GFR. Performed By: #### CBCDIF, CMP #### [facility] [address] [place] [address] PROGRESS Observed: 05/13/2018 Status: COMPLETED Source: [place] 12:[address] [facility] REPOSITORY HNO ID: [id number] Author: Abarn Winston Service: (none) Author Type: Physician Type: Progress Notes Filed: 05/13/2018 12:57 PM Note Text: This note was created using [employer]. Subjective Patient presents with: Physical Establish Care Shon Garner was here for above. He provided his own history and Senegalese fluency was good. He was in the ER April 17 for diverticulitis. He recovered with antibiotic therapy. Leukocytosis was noted. Ct scan was consistent with mild colitis. He had occasional residual discomfort, but felt back to baseline overall. He was advised he will need a colonoscopy. He had chronic rhinosinusitis and tinnitus. His symptoms were worse in [place] but still bothersome here in [place], and affecting his smell at times. He had sneezing off and on. He took no medication. His eyelids swell up with aspirin, but he was able to take ibuprofen or naproxen. 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 He took no medication for his symptom. PAST MEDICAL HISTORY Diagnosis Date - Chronic sinusitis 1999 - Colitis, acute 08/30/2016 - Diverticulitis of sigmoid colon 04/17/2018 - Gastritis 2007 - Hiatal hernia 2007 PAST SURGICAL HISTORY Procedure Laterality Date - EGD 2007 [place] FAMILY HISTORY Problem Relation Age of Onset - Heart Father [place] @ 64 years, living - Diabetes Father - Hypertension Father - Diabetes Maternal Grandmother - Heart Maternal Grandfather d/t [place] @ 48 years - Heart Paternal Uncle - Heart Paternal Uncle - Heart Paternal Uncle - Heart disease Brother - Hyperlipidemia Brother Social History Marital status: Single Spouse name: Years of education: Number of children: 1 Occupational History Occupation Employer Comment community nurse Social History Main Topics Smoking status: Never Smoker Smokeless tobacco: Never Used Alcohol use: Yes Comment: 1 beverage per month Drug use: No Sexual activity: Yes Partners with: Female Other Topics Concern Caffeine Concern Not Asked Comment:2-3 beverages daily Social History Narrative Grew up in [place]. Graduate of [employer]. ALLERGIES Allergen Reactions - Aspirin Swelling Eye swelling. NSAID okay. Current Outpatient Prescriptions: fluticasone (FLONASE) 50 mcg/actuation nasal spray Use 2 Sprays in each nostril once daily. Rinse mouth after use. No current facility-administered medications for this visit. Review of Systems Constitutional: Negative. HENT: Positive for congestion, rhinorrhea, sinus pressure, sneezing and tinnitus. Negative for ear pain, sore throat and trouble swallowing. Eyes: Negative. Respiratory: Negative. Cardiovascular: Negative. Gastrointestinal: Positive for abdominal pain and constipation. Negative for blood in stool, diarrhea, nausea, rectal pain and vomiting. Genitourinary: Negative. Musculoskeletal: Positive for neck stiffness. Negative for arthralgias and joint swelling. Neurological: Negative. Objective BP 134/80 (BP Site: Right Arm, BP Position: Sitting, BP Cuff Size: Regular Adult) Pulse 68 Temp 36.4 ?C (97.6 ?F) (Left Tympanic) Resp 18 Ht 174.6 cm (5' 8.75) Wt 84.4 kg (186 lb) BMI 27.67 kg/m? Physical Exam Constitutional: He is oriented to person, place, and time. He appears well-developed and well-nourished. HENT: Head: Normocephalic. Right Ear: External ear normal. Left Ear: External ear normal. Nose: Mucosal edema present. Mouth/Throat: Oropharynx is clear and moist. Eyes: Pupils are equal, round, and reactive to light. Conjunctivae and EOM are normal. Neck: Normal range of motion. Neck supple. Cardiovascular: Normal rate, regular rhythm, normal heart sounds and intact distal pulses. Exam reveals no gallop. No murmur heard. Pulmonary/Chest: Effort normal and breath sounds normal. Abdominal: Soft. He exhibits no distension. There is no hepatosplenomegaly. There is tenderness in the left lower quadrant. There is no rigidity, no rebound and no guarding. No hernia. Genitourinary: Testes normal and penis normal. Uncircumcised. Musculoskeletal: Normal range of motion. He exhibits no edema, tenderness or deformity. Lymphadenopathy: He has no cervical adenopathy. Neurological: He is alert and oriented to person, place, and time. Coordination normal. Skin: No rash noted. Assessment and Plan 1. Routine general medical examination at a health care facility - ICD9: V70.0, ICD10: Z00.00 (primary diagnosis) - Discussed need and benefit for weight loss. BMI 27.67 kg/(m2) - CBC + DIFF - COMP METABOLIC PANEL - LIPID PANEL BASIC - Vaccine recommended below. Patient indicated understanding and willingness to follow recommendations. 2. Diverticulitis - ICD9: 562.11, ICD10: K57.92 If WBC elevated, consider GI referral. Otherwise observe. Diet discussed. 3. Tinnitus of both ears - ICD9: 388.30, ICD10: H93.13 Consider ENT if worse. 4. Chronic sinusitis, unspecified location - ICD9: 473.9, ICD10: J32.9 - FLUTICASONE 50 MCG/ACTUATION NASAL SPRAY,SUSPENSION Discussed medication dosage, usage, goals of therapy, and side effects. 5. Cervicalgia - ICD9: 723.1, ICD10: M54.2 Discussed avoidance, and postural changes at work. 6. Need for vaccination - ICD9: V05.9, ICD10: Z23 - TDAP VACCINE AGE 7+ IM Abran Winston MD CNOV Observed: 05/13/2018 Status: COMPLETED Source: [place] 10:20 AM [facility] REPOSITORY Office Visit (INTMWS) SHON GARNER ([id number]) 1990 M Date Time Provider Department 05/13/18 10:20 AM ABRAN WINSTON INTMWS During your visit today, we recorded the following information about you: Temperature Pulse Respiration Blood pressure 97.6 degrees 68/minute 18/minute 134/80 Weight Height 84.4 kg 1.746 m Abran Winston MD 05/13/2018 12:57 PM Signed This note was created using [employer]. Subjective Patient presents with: Physical Establish Care Shon Garner was here for above. He provided his own history and Senegalese fluency was good. He was in the ER April 17 for diverticulitis. He recovered with antibiotic therapy. Leukocytosis was noted. Ct scan was consistent with mild colitis. He had occasional residual discomfort, but felt back to baseline overall. He was advised he will need a colonoscopy. He had chronic rhinosinusitis and tinnitus. His symptoms were worse in [place] but still bothersome here in [place], and affecting his smell at times. He had sneezing off and on. He took no medication. His eyelids swell up with aspirin, but he was able to take ibuprofen or naproxen. 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 He took no medication for his symptom. PAST MEDICAL HISTORY Diagnosis Date - Chronic sinusitis 1999 - Colitis, acute 08/30/2016 - Diverticulitis of sigmoid colon 04/17/2018 - Gastritis 2007 - Hiatal hernia 2007 PAST SURGICAL HISTORY Procedure Laterality Date - EGD 2007 [place] FAMILY HISTORY Problem Relation Age of Onset - Heart Father [place] @ 64 years, living - Diabetes Father - Hypertension Father - Diabetes Maternal Grandmother - Heart Maternal Grandfather d/t [place] @ 48 years - Heart Paternal Uncle - Heart Paternal Uncle - Heart Paternal Uncle - Heart disease Brother - Hyperlipidemia Brother Social History Marital status: Single Spouse name: Years of education: Number of children: 1 Occupational History Occupation Employer Comment community nurse Social History Main Topics Smoking status: Never Smoker Smokeless tobacco: Never Used Alcohol use: Yes Comment: 1 beverage per month Drug use: No Sexual activity: Yes Partners with: Female Other Topics Concern Caffeine Concern Not Asked Comment:2-3 beverages daily Social History Narrative Grew up in [place]. Graduate of [employer]. ALLERGIES Allergen Reactions - Aspirin Swelling Eye swelling. NSAID okay. Current Outpatient Prescriptions: fluticasone (FLONASE) 50 mcg/actuation nasal spray Use 2 Sprays in each nostril once daily. Rinse mouth after use. No current facility-administered medications for this visit. Review of Systems Constitutional: Negative. HENT: Positive for congestion, rhinorrhea, sinus pressure, sneezing and tinnitus. Negative for ear pain, sore throat and trouble swallowing. Eyes: Negative. Respiratory: Negative. Cardiovascular: Negative. Gastrointestinal: Positive for abdominal pain and constipation. Negative for blood in stool, diarrhea, nausea, rectal pain and vomiting. Genitourinary: Negative. Musculoskeletal: Positive for neck stiffness. Negative for arthralgias and joint swelling. Neurological: Negative. Objective BP 134/80 (BP Site: Right Arm, BP Position: Sitting, BP Cuff Size: Regular Adult) Pulse 68 Temp 36.4 ?C (97.6 ?F) (Left Tympanic) Resp 18 Ht 174.6 cm (5' 8.75) Wt 84.4 kg (186 lb) BMI 27.67 kg/m? Physical Exam Constitutional: He is oriented to person, place, and time. He appears well-developed and well-nourished. HENT: Head: Normocephalic. Right Ear: External ear normal. Left Ear: External ear normal. Nose: Mucosal edema present. Mouth/Throat: Oropharynx is clear and moist. Eyes: Pupils are equal, round, and reactive to light. Conjunctivae and EOM are normal. Neck: Normal range of motion. Neck supple. Cardiovascular: Normal rate, regular rhythm, normal heart sounds and intact distal pulses. Exam reveals no gallop. No murmur heard. Pulmonary/Chest: Effort normal and breath sounds normal. Abdominal: Soft. He exhibits no distension. There is no hepatosplenomegaly. There is tenderness in the left lower quadrant. There is no rigidity, no rebound and no guarding. No hernia. Genitourinary: Testes normal and penis normal. Uncircumcised. Musculoskeletal: Normal range of motion. He exhibits no edema, tenderness or deformity. Lymphadenopathy: He has no cervical adenopathy. Neurological: He is alert and oriented to person, place, and time. Coordination normal. Skin: No rash noted. Assessment and Plan 1. Routine general medical examination at a health care facility - ICD9: V70.0, ICD10: Z00.00 (primary diagnosis) - Discussed need and benefit for weight loss. BMI 27.67 kg/(m2) - CBC + DIFF - COMP METABOLIC PANEL - LIPID PANEL BASIC - Vaccine recommended below. Patient indicated understanding and willingness to follow recommendations. 2. Diverticulitis - ICD9: 562.11, ICD10: K57.92 If WBC elevated, consider GI referral. Otherwise observe. Diet discussed. 3. Tinnitus of both ears - ICD9: 388.30, ICD10: H93.13 Consider ENT if worse. 4. Chronic sinusitis, unspecified location - ICD9: 473.9, ICD10: J32.9 - FLUTICASONE 50 MCG/ACTUATION NASAL SPRAY,SUSPENSION Discussed medication dosage, usage, goals of therapy, and side effects. 5. Cervicalgia - ICD9: 723.1, ICD10: M54.2 Discussed avoidance, and postural changes at work. 6. Need for vaccination - ICD9: V05.9, ICD10: Z23 - TDAP VACCINE AGE 7+ IM Abran Winston MD Referring Provider: SELF [200] Allergies As of Date: 05/13/2018 Noted Allergy Reaction ASPIRIN 08/30/2016 7 - Swelling Comments: Eye swelling. NSAID okay. Date Reviewed: 05/13/2018 Reviewed by: Mckenna Puente LPN - Fully Assessed Reason for Visit: Physical [83] Establish Care [42] Reason For Visit History Recorded Primary Visit Diagnosis:Routine general medical examination at a health care facility [Z00.00] Other Visit Diagnoses:Diverticulitis [K57.92] Tinnitus of both ears [H93.13] Chronic sinusitis, unspecified location [J32.9] Cervicalgia [M54.2] Need for vaccination [Z23] Order(s):fluticasone (FLONASE) 50 mcg/actuation nasal sprayUse 2 Sprays in each nostril once daily. Rinse mouth after use.Disp: 1 BottleRfl: 5 CBC + DIFF [SQCBCDIF] Order #: [id number] FUTURE COMP METABOLIC PANEL [SQCMP] Order #: [id number] FUTURE LIPID PANEL BASIC [SQLIPB] Order #: [id number] FUTURE TDAP VACCINE AGE 7+ IM [52277WCE] Order #: [id number] Prescriptions as of 05/13/2018 Sig: FLUTICASONE 50 MCG/ACTUATION * Use 2 Sprays in each nostril * Problem List As Of Date 05/13/2018 Noted Resolved Gastritis [K29.70] Hiatal hernia [K44.9] Tinnitus of both ears [H93.13] INVALID FOR* Cervicalgia [M54.2] INVALID FOR* Prescriptions ordered this encounter Disp Refills Start End FLUTICASONE 50 MCG/ACTUATION NASAL S* 1 Daniel* 5 05/13/2018 Route: EACH NOSTRIL Sig: Use 2 Sprays in each nostril once daily. Rinse mouth after use. Disposition: Return in about 1 year (around 05/13/2019), or if symptoms worsen or fail to improve. Follow-up and Disposition History Recorded Encounter Status:Closed by ABRAN WINSTON MD on 05/13/18 DISCHARGE INSTRUCTION Observed: 04/17/2018 Status: F Source: [place] 1:40 AM [facility] Medical Records Department [address] [place] [address] Discharge Instruction 04/17/18 0139 MR#: [id number] Acct: [id number] Name: SHON GARNER Rep #: [id number] : 1990 From: Dany Murphy MD PCP: Care Physician, No Primary Status: REG ER ED Disposition - Plan for ED Patient: Chief Complaint: Abd Pain Instructions: ED Diverticulitis Prescriptions: Metronidazole [Flagyl] 500 mg PO Q8H #21 tab Ciprofloxacin [Cipro] 500 mg PO BID #14 tab Referrals: Care Physician,No Primary [Primary Care Provider] - What to do if you have Problems For any increased pain, shortness of breath, bleeding, nausea or vomiting, chest pain, or any unexpected problems, contact your Primary Care Provider. Call [facility] ([phone]) or report to the closest Emergency Room. Call 911 if necessary. 04/17/18 0140 <Electronically signed by Dany Murphy MD> Date Dany Murphy MD Cosigner Signature (If Indicated): Date CC: No Primary Care Physician EMERGENCY DEPARTMENT Observed: 04/17/2018 Status: F Source: [place] SUMMARY 1:39 AM [facility] Medical Records Department [address] [place] [address] Emergency Department Summary 04/17/18 0135 MR#: [id number] Acct: [id number] Name: SHON GARNER Rep #: [id number] : 1990 From: Dany Murphy MD PCP: Sohail Physician, No Primary Status: REG ER - ER Visit Summary Date of Service: 04/17/18 Chief Complaint: Abdominal pain History of Present Illness: The patient is a 27 M who presents with abdominal pain. It is been present for about 5 hours. He describes it as a stabbing lower abdominal pain he also has some pain radiating through to his back. Currently he rates this as 8 out of 10. He has had about 3 episodes of nonbloody nonbilious emesis. He reports urinary urgency. He notes that the pain radiates into his genitals. He does have a history of prior similar symptoms about 1 year ago and was diagnosed with colitis and improved with antibiotics. No fevers. No diarrhea. Physical Examination: Afebrile vitals are essentially normal Moist mucous membranes Heart regular rate and rhythm Lungs are clear Abdomen soft nondistended he has bilateral lower abdominal tenderness without guarding without rebound Test Results: CBC notable for white blood cell count 15.8. BMP normal. Hepatic function lipase normal. UA notable for [address] normal[address] the abdomen and pelvis shows wall thickening of the sigmoid colon consistent with diverticulitis or colitis. Emergency Department Course and Treatment: She was treated with IV fluids morphine Zofran here. On reevaluation he is resting comfortably. Given that this is a similar episode one year ago I suspect the patient has underlying diverticulosis with diverticulitis. He was advised that after treatment he will likely need a colonoscopy for further evaluation. He does note that he has had an EGD in [place] but never had a lower endoscopy. He is resting comfortably on reevaluation. I do believe he is a good candidate for outpatient treatment. He has had no vomiting here and his pain is controlled. He will be discharged with Cipro and Flagyl. He was asked if he would need any analgesics at home and he states he will just take Tylenol for pain. He does have an appointment next month to establish a primary care physician with the [facility]. He was advised to keep the scheduled follow- up. He understands to return for new or worsening symptoms. He is agreeable to plan was discharged home in good condition. Treatment Plan: [] Disposition: Discharge Impression: Sigmoid diverticulitis This note was generated with [employer] dictation software. It may contain incorrect words, spelling, and punctuation that were not noted in review of the chart prior to signing ED Disposition - Plan for ED Patient: Chief Complaint: Abd Pain Referrals: Care Physician,No Primary [Primary Care Provider] - What to do if you have Problems For any increased pain, shortness of breath, bleeding, nausea or vomiting, chest pain, or any unexpected problems, contact your Primary Care Provider. Call [facility] ([phone]) or report to the closest Emergency Room. Call 911 if necessary. 04/17/18 0139 <Electronically signed by Dany Murphy MD> Date Dany Murphy MD Cosigner Signature (If Indicated): Date CC: No Primary Care Physician ABDOMEN/PELVIS WITHOUT Observed: 04/17/2018 Status: F Source: [place] CONT 12:22 AM [facility] Imaging Services [address] [place] [id number] Abdomen/Pelvis without Cont MR#: [id number] Acct: [id number] Name: SHON GARNER Rep #: [id number] : 1990 M 27 From: Scar Swanson MD PCP: Care Physician, No Primary Status: REG ER Study: Abdomen/Pelvis without Cont Date of Exam: 04/17/18 Exam# [id number] Ordering Dr: Dany Murphy MD STUDY: CT ABDOMEN AND PELVIS WITHOUT CONTRAST REASON FOR EXAM: Male, 27 years old. Abdominal pain. RADIATION DOSAGE (If Supplied By Facility): CTDIvol = ( 8.75 ) mGy, DLP = ( 469.93 ) mGycm TECHNIQUE: Transaxial images were obtained from the dome of the diaphragm to the symphysis pubis without oral contrast, and without intravenous contrast. Sagittal and coronal images were reconstructed. Individualized dose optimization techniques were used for this CT. COMPARISON: None. FINDINGS: The visualized lung bases are unremarkable. The visualized portions of the heart are within normal limits. Normal liver. Normal gallbladder and extrahepatic biliary system. Normal spleen. Normal pancreas. Normal bilateral adrenal glands. Normal right kidney. Normal left kidney. Normal visualized stomach. Normal small intestine. There is fecal retention. There is mild diverticulosis of the sigmoid colon. There is focal stranding and thickening of the sigmoid colon consistent with mild diverticulitis or colitis. There is no evidence of drainable abscess. There is non-visualization of the appendix. Normal abdominal aorta. Normal inferior vena cava. Normal retroperitoneum. Normal urinary bladder. Normal abdominal wall. Normal osseous structures. CT/Abdomen/Pelvis without Cont IMPRESSION: Small focal area of thickening and mild stranding in the sigmoid colon consistent with mild acute diverticulitis or colitis. No drainable abscess is seen. Otherwise no demonstrated acute process. The appendix is not definitely identified. Electronically Signed: Scar Swanson MD at 1:03 EDT Tel , Service support , CC: No Primary Care Physician; Dany Murphy MD Manager Account Management: Signed CBC W/DIFF, AUTOMATED Collected: 04/17/2018 Status: F Source: [place] 12:15 AM [facility] TYPE CODE TESTS RESULT OUT OF RANGE REFERENCE UNITS LAB L100.1000 4.4-11.0 K/mm3 High WBC 15.8 LAB L100.1200 4.6-6.2 M/mm3 Normal RBC 5.14 LAB L100.1300 13.0-16.5 g/dl Normal HGB 14.8 LAB L100.1400 40-54 % Normal HCT 42.9 LAB L100.1500 80-94 fL Normal MCV 83.5 LAB L100.1600 27.0-32.0 pg Normal MCH 28.8 LAB L100.1700 32-36 g/gl Normal MCHC 34.5 LAB L100.1810 11.6-14.6 % Normal RDW CV 13.2 LAB L100.1820 35.1-43.9 fl Normal RDW SD 40.1 LAB L100.1900 150-450 K/mm3 Normal PLT 282 LAB L100.2000 6.2-12.0 fl Normal MPV 10.2 LAB L100.2100 47-70 % High NEUT% 87.7 LAB L100.2200 19-41 % Low LY% 5.8 LAB L100.2300 0-10 % Normal MONO% 6.0 LAB L100.2400 0-5 % Normal EO% 0.2 LAB L100.2500 0-1 % Normal BASO% 0.1 LAB L100.2550 0.0-0.9 % Normal IM GRAN % 0.200 Result Comment: IG% - Immature Granulocytes (promyelocytes, myelocytes and metamyelocytes) > 1% indicates that a LEFT SHIFT is Present. LAB L100.2620 2.0-7.7 X10 3/uL High Absolute Neut 13.8 LAB L100.2720 0.83-4.51 X10 3/ul Normal Absolute Lymph 0.92 Performed By: #### L100.0100 #### [facility] [address] [place], [address] BASIC METABOLIC Collected: 04/17/2018 Status: F Source: [place] PROFILE [facility] 12:15 AM [facility] TYPE CODE TESTS RESULT OUT OF RANGE REFERENCE UNITS LAB L501.0100 74-106 mg/dL High GLU 108 Result Comment: Fasting Glucose result from 100 to 125 mg/dL suggests IMPAIRED HOMEOSTASIS per A.D.A. criteria. Please note revised GLUCOSE reference range effective 2017. LAB L501.1000 7-18 mg/dL Normal BUN 15 LAB L501.1100 0.70-1.30 mg/dL Normal CREAT,SERUM 1.09 Result Comment: The validity of the calculated GFR AND GFRAA in patients over 70 years has not been determined. Clinical correlation is essential. LAB L501.1110 >60 mL/min Normal EST GFR 86 Result Comment: Non- GFR Calc LAB L501.1115 >60 mL/min Normal EST GFR - AA 105 Result Comment: GFR Calc LAB L501.1255 ml/min Normal Estimated CRCL 102.70 LAB L501.1300 10-20 RATIO BUN/CRE Normal 13.8 LAB L501.2200 8.5-10 mg/dL .1 CA Normal 9.4 LAB L501.5300 136-14 mmol/L 5 NA Normal 136 LAB L501.5600 3.5-5. mmol/L 1 K Normal 4.1 LAB L501.5900 98-107 mmol/L CL Normal 102 LAB L501.6100 21.0-3 mmol/L 2.0 CO2 Normal 29.0 LAB L501.6200 5-15 GAP Normal 5 Performed By: #### L500.2500, L500.3400, L501.2450 #### [facility] [address] [place], [place], [id number] LIVER PROFILE Collected: 04/17/2018 Status: F Source: [place] 12:15 AM [facility] TYPE CODE TESTS RESULT OUT OF RANGE REFERENCE UNITS LAB L501.1500 6.4-8.2 g/dL High T PROT 8.4 LAB L501.1800 3.2-5.0 g/dL Normal ALB 4.3 LAB L501.1950 2.2-4.2 g/dL Normal GLOB 4.1 LAB L501.4100 15-37 U/L Normal AST 25 LAB L501.4305 45-117 U/L Normal ALK P 92 LAB L501.4405 16-61 U/L Normal ALT 49 LAB L501.4600 0.20-1.00 mg/dL Normal T BILI 0.40 LAB L501.4700 0.00-0.30 mg/dL Normal D BILI 0.10 Performed By: #### L500.2500, L500.3400, L501.2450 #### [facility] [address] [place], [place], [id number] LIPASE Collected: 04/17/2018 Status: F Source: [place] 12:15 AM [facility] TYPE CODE TESTS RESULT OUT OF RANGE REFERENCE UNITS LAB L501.2450 73-393 U/L Normal LIPASE 91 Performed By: #### L500.2500, L500.3400, L501.2450 #### [facility] [address] [place], [place], [id number] URINALYSIS, COMPLETE Collected: 04/17/2018 Status: F Source: [place] 12:01 AM [facility] Order Comment: Order Date: 04/16/18 Has pt arrived? Y How was Urine Obtained? HOUSE COORDINATOR TO SPECIFY TYPE CODE TESTS RESULT OUT OF RANGE REFERENCE UNITS LAB L400.4050 0-5 /hpf WBC 0 Normal SEEN LAB L400.4100 0-5 /hpf 0 Normal RBC-UA SEEN LAB L400.4150 0-5 /hpf SQUAM Normal EPI 0-5 SEEN LAB L400.4300 None Seen /hpf 0 Normal BACTERIA SEEN LAB L400.4350 <or=2+ /hpf 3+ Normal MUCUS, URINE LAB L400.3000 Yellow COLOR Normal Yellow LAB L400.3050 Clear Normal CLARITY Clear LAB L400.3200 Normal mg/dl Normal GLUCOSE, UR NEGATIVE LAB L400.3300 Negative mg/dL Normal BILIRUBIN URINE Negative LAB L400.3400 Negative mg/dl High 5 KETONE UR LAB L400.3465 1.002-1.030 Normal SP.GR. DIPSTX 1.015 LAB L400.3550 5.0 - 8.0 pH UR Normal 7.0 LAB L400.3600 Negative mg/dl High PROT 15 DIPSTX LAB L400.3700 Normal mg/dl Normal UROBILI Normal LAB L400.3750 Negative Normal NITRITE UR Negative LAB L400.3780 Negative /ul Normal OCCULT BLOOD-UR Negative LAB L400.3800 Negative /ul High LEUK 25 ESTERASE Performed By: #### L400.0001 #### [facility] [address] [place], [place], [id number] PROGRESS Observed: 02/03/2018 Status: COMPLETED Source: [place] 12:45 PM [facility] RE[facility] HNO ID: [id number] Author: Deedee Leon Service: (none) Author Type: Nurse Practitioner Type: Progress Notes Filed: 02/03/2018 12:49 PM Note Text: Subjective HPI Pt presents with c/o CP, dyspnea and acute anxiety x several hours. States drove 8 hours through the night last night without stopping to walk or stretch. Hx panic attacks, anxiety disorder. Recently moved to the area from [place]. Has not established with PCP yet. No medical records available. Review of Systems Constitutional: Negative for chills and fever. Respiratory: Positive for shortness of breath. Cardiovascular: Positive for chest pain and palpitations. Psychiatric/Behavioral: The patient is nervous/anxious. Objective Physical Exam Constitutional: He is oriented to person, place, and time and well-developed, well-nourished, and in no distress. No distress. Cardiovascular: Normal rate, regular rhythm and normal heart sounds. Exam reveals no gallop and no friction rub. No murmur heard. Pulmonary/Chest: Effort normal and breath sounds normal. No respiratory distress. He has no wheezes. He has no rales. Neurological: He is alert and oriented to person, place, and time. Gait normal. Skin: Skin is warm and dry. He is not diaphoretic. BP 120/90 Pulse 73 Temp 36.4 ?C (97.5 ?F) (Tympanic) Resp 16 Wt 88 kg (194 lb) SpO2 100% .Patient presents with: Nausea: fatigue, shortness of breath x 1 hour, after driving long period of time last night and this am PAST MEDICAL HISTORY Diagnosis Date - Gastritis - Hiatal hernia PAST SURGICAL HISTORY Procedure Laterality Date - NONE ALLERGIES Aspirin MEDICATIONS No prescriptions on file. No family history on file. Social History Substance Use Topics - Smoking status: Never Smoker - Smokeless tobacco: Never Used - Alcohol use Yes Comment: 1 beverage per month ASSESSMENT/PLAN: 1. Dyspnea, unspecified type - ICD9: 786.09, ICD10: R06.00 (primary diagnosis) - CONSULT TO EMERGENCY MEDICINE 2. Chest pain, unspecified type - ICD9: 786.50, ICD10: R07.9 - CONSULT TO EMERGENCY MEDICINE 3. Anxiety - ICD9: 300.00, ICD10: F41.9 - CONSULT TO EMERGENCY MEDICINE 4. History of panic attacks - ICD9: V11.8, ICD10: Z86.59 - CONSULT TO EMERGENCY MEDICINE Pt referred to ED for further evaluation of sx. Concern for r/o PE. Cannot treat anxiety, acute panic attacks in the Express [facility] setting. Pts will transport to [place] ED now. Pt refuses transfer via squad. VSS were stable during visit. Deedee Leon APRN.CORPORATE WEBMASTER CNOV Observed: 02/03/2018 Status: COMPLETED Source: [place] 11:[address] [facility] REPOSITORY Office Visit (WSTR) SHON GARNER ([id number]) 1990 M Date Time Provider Department 02/03/18 11:45 AM DEEDEE LEON [facility] During your visit today, we recorded the following information about you: Temperature Pulse Respiration Blood pressure 97.5 degrees 73/minute 16/minute 120/90 Weight 88 kg Deedee Leon 02/03/2018 12:49 PM Signed Subjective HPI Pt presents with c/o CP, dyspnea and acute anxiety x several hours. States drove 8 hours through the night last night without stopping to walk or stretch. Hx panic attacks, anxiety disorder. Recently moved to the area from [place]. Has not established with PCP yet. No medical records available. Review of Systems Constitutional: Negative for chills and fever. Respiratory: Positive for shortness of breath. Cardiovascular: Positive for chest pain and palpitations. Psychiatric/Behavioral: The patient is nervous/anxious. Objective Physical Exam Constitutional: He is oriented to person, place, and time and well-developed, well-nourished, and in no distress. No distress. Cardiovascular: Normal rate, regular rhythm and normal heart sounds. Exam reveals no gallop and no friction rub. No murmur heard. Pulmonary/Chest: Effort normal and breath sounds normal. No respiratory distress. He has no wheezes. He has no rales. Neurological: He is alert and oriented to person, place, and time. Gait normal. Skin: Skin is warm and dry. He is not diaphoretic. BP 120/90 Pulse 73 Temp 36.4 ?C (97.5 ?F) (Tympanic) Resp 16 Wt 88 kg (194 lb) SpO2 100% .Patient presents with: Nausea: fatigue, shortness of breath x 1 hour, after driving long period of time last night and this am PAST MEDICAL HISTORY Diagnosis Date - Gastritis - Hiatal hernia PAST SURGICAL HISTORY Procedure Laterality Date - NONE ALLERGIES Aspirin MEDICATIONS No prescriptions on file. No family history on file. Social History Substance Use Topics - Smoking status: Never Smoker - Smokeless tobacco: Never Used - Alcohol use Yes Comment: 1 beverage per month ASSESSMENT/PLAN: 1. Dyspnea, unspecified type - ICD9: 786.09, ICD10: R06.00 (primary diagnosis) - CONSULT TO EMERGENCY MEDICINE 2. Chest pain, unspecified type - ICD9: 786.50, ICD10: R07.9 - CONSULT TO EMERGENCY MEDICINE 3. Anxiety - ICD9: 300.00, ICD10: F41.9 - CONSULT TO EMERGENCY MEDICINE 4. History of panic attacks - ICD9: V11.8, ICD10: Z86.59 - CONSULT TO EMERGENCY MEDICINE Pt referred to ED for further evaluation of sx. Concern for r/o PE. Cannot treat anxiety, acute panic attacks in the [facility] setting. Pts will transport to [place] ED now. Pt refuses transfer via squad. VSS were stable during visit. Deedee Leon APRN.CORPORATE WEBMASTER Referring Provider: SELF [200] Allergies As of Date: 02/03/2018 Noted Allergy Reaction ASPIRIN 08/30/2016 7 - Swelling Comments: Eye swelling Date Reviewed: 02/03/2018 Reviewed by: Dian Singh Ma - Fully Assessed Reason for Visit: Nausea [70] Cmt: fatigue, shortness of breath x 1 hour, after driving long period of time last night and this am Primary Visit Diagnosis:Dyspnea, unspecified type [R06.00] Other Visit Diagnoses:Chest pain, unspecified type [R07.9] Anxiety [F41.9] History of panic attacks [Z86.59] Order(s):CONSULT TO EMERGENCY MEDICINE [] Order #: [id number]: 1 Problem List As Of Date 02/03/2018 Noted Resolved Gastritis [K29.70] Hiatal hernia [K44.9] Encounter Status:Closed by DEEDEE LEON CNP on 02/03/18 ALLERGIES ALLERGIES DATE TYPE / CODE NAME / CODE REACTION SEVERITY SOURCE 10/14/2018 Drug aspirin/E61021 Swelling Unknown [facility] Allergy/4160 1587(RXNORM) [facility] [address](SNOMED Repository CT) 08/30/2016 DRUG ASPIRIN SWELLING [facility] INGREDI/[address] [place] [address](SNOMED Repository CT) /[id number] ASPIRIN [facility] (SNOMED CT) Health System Repository ENCOUNTERS ENCOUNTERS ADMIT/DISCHARGE ACCOUNT NUMBER ADMITTING ENCOUNTER LOCATION SOURCE CLASS 10/22/2018/10/22/19 [id number] Ambulatory [address] [place] Repository 10/22/2018/10/22/19 [id number] Ambulatory KIRILL Mcdonald [address] MEDICAL Repository CENTERBuildi ng:AGGENS7 10/22/2018/10/23/19 [id number] Ambulatory [address] [place] Repository 10/14/2018/10/14/19 [id number] Emergency [address] ding:ED Repository 10/13/2018/10/20/19 [id number] Ambulatory [address] [place] Repository 10/07/2018/10/07/19 [id number] MICHELLE VARELA Ambulatory [address] Repository 10/02/2018/10/06/19 [id number] Ambulatory [address] Repository 10/01/2018/10/01/19 [id number] Emergency [address] ding:ED Repository 09/25/2018/09/25/20 [id number] Ambulatory [address] Repository 09/25/2018/09/26/20 [id number] Ambulatory [address] Repository 09/18/2018/09/20/20 [id number] Angel, Inpatient [address] ding:[id number] Repository : [place]830Zwx: 1 09/18/2018 [id number] Angel, Ambulatory BMSBuilding: Serge [facility] BMS.Critical access hospital Repository 09/18/2018 [id number] Ambereletsky, Ambulatory BMSBuilding: [facility] BMS.Critical access hospital Repository 09/18/2018 [id number] Ambereletsky, Ambulatory BMSBuilding: [facility] BMS.Critical access hospital Repository 09/17/2018/09/17/20 [id number] Emergency [address] ding:ED Repository 08/11/2018/08/12/20 [id number] Ambulatory [address] Repository 08/01/2018/08/04/20 [id number] Ambulatory [address] Repository 05/14/2018 [id number] Ambulatory [facility] Repository 05/13/2018/05/14/20 [id number] Ambulatory [address] Repository 04/16/2018/04/17/20 [id number] Emergency [address] ding:ED Repository 02/03/2018/02/06/20 [id number] Ambulatory [address] Repository PAYERS PAYERS ENCOUNTER GUARANTOR PAYER SUBSCRIBER SOURCE 10/22/2018 SHON DAVISONANDOB: Primary Insurance:MMO SHON CABANDOB: [facility] [place] [id number] Number: Repository [address] [id number] [address]Yps: 330) Date: [id number] () 10/14/2018 SHON RAMOS6 S Primary [facility]OB[facility] [place] Insurance[facility] [id number] [address]Tvu: [facility] Number: Repository () [id number] Date:4868-20-88XK [address] [place] [phone]: 10/14/2018 Secondary NOT GIVENUNK [place] Insurance:SELF PAY [facility] Number: Effective Repository Date:2018-10-14 10/01/2018 SHON RAMOS6 S Primary SHON CABANDOB: [place] [address] [place], Insurance:MEDICAL [id number] Regional Medical Center [address]Ptc: [facility] Number: Repository () [id number] Date:8610-91-76LZ [address], [place] [address]KA: 10/01/2018 Secondary NOT GIVENUNK [place] Insurance:SELF PAY [facility] Number: Effective Repository Date:2018-10-01 09/18/2018 SHON RAMOS6 S Primary SHON CABANDOB: [place] [address] [place], Insurance:MEDICAL [id number] [facility] [address]Kxx: [facility] Number: Repository () [id number] Date:8657-62-03NE [address] [place] [phone]: 09/18/2018 Secondary NOT GIVENUNK [place] Insurance:SELF PAY [facility] Number: Effective Repository Date:2018-09-18 09/18/2018 SHON RAMOS6 S Primary SHON CABANDOB: [place] [address] [place], Insurance:MEDICAL [id number] [facility] [address]Kur: [facility] Number: Repository () [id number] Date:[id number] [address] [address]YM: 09/18/2018 Secondary NOT GIVENUNK [place] Insurance:SELF PAY [facility] Number: Effective Repository Date:2018-09-18 09/18/2018 SHON RAMOS6 S Primary SHON CABANDOB: [place] [address] [place], Insurance:MEDICAL [id number] [facility] [address]Nmb: [facility] Number: Repository () [id number] Date:9225-51-91EV [address] [place] [phone]: 09/18/2018 Secondary NOT GIVENUNK [place] Insurance:SELF PAY [facility] Number: Effective Repository Date:2018-09-18 09/18/2018 SHONJack RAMOS6 S Primary SHON CABANDOB: [place] [address] [place], Insurance:MEDICAL [id number] [facility] [address]Njo: [facility] Number: Repository () [id number] Date:2338-70-33JA [address] [place] [phone]: 09/18/2018 Secondary NOT GIVENUNK [place] Insurance:SELF PAY [facility] Number: Effective Repository Date:2018-09-18 09/17/2018 SHON HWANG S Primary SHON CABANDOB: [place] [address] JAI, Insurance:MEDICAL [id number] Regional Medical Center [address]Sym: [facility] Number: Repository () [id number] Date:2423-06-05CY [address] [place] [phone]: 09/17/2018 Secondary NOT GIVENUNK [place] Insurance:SELF PAY [facility] Number: Effective Repository Date:2018-09-17 04/16/2018 SHON RAMOS6 S Primary SHON CABANDOB: [place] [address] JAI, Insurance:MEDICAL [id number] Regional Medical Center [address]Psj: [facility] Number: Repository () [id number] Date:1201-55-86RH [address] [place] [phone]: 04/16/2018 Secondary SHON CABANDOB: [place] Insurance:SPARTA [id number] Number: Repository [id number] Date:6259-85-38YJ [address], [place] [address]QG: 04/16/2018 Tertiary NOT GIVENUNK [place] Insurance:SELF PAY [facility] Number: Effective Repository Date:2018-04-16
== END 2018-09-17 14:49 | disposition home or self-care (01) ==
LOC: ED 12:04
PROVIDERS: Emergency Provider Emergency Medicine; Family Provider Internal Medicine; PCP Internal Medicine
DX: K57.32 Diverticulitis of large intestine without perforation or abscess without bleeding (principal)
CPT/HCPCS: 74177; 80053; 81001; 83690; 85025; 96360; 99284; J7030; Q9967; A4216

== ENCOUNTER 2018-09-18 15:19 | Inpatient (IN) | payer OTHER, SELFPAY ==
[2018-09-17 10:52] VITALS: BMI 27.6
[2018-09-18] VITALS (8 sets, daily range): BP systolic 128–140; BP diastolic 75–95; PULSE 99–129; RESP 16–18; TEMP 37.1–39.2; O2SAT 97–100; BMI 27.4; BMI 27.5; BMI 27.3
[2018-09-18] MEDS: 0.9% Normal Saline 1,000 ML 1000 ML IV (15:52)
[2018-09-18] MEDS: Ondansetron 4 MG/2 ML Vial IV (15:52)
[2018-09-18] MEDS: Morphine 4 MG/ML Syringe IV (15:52)
--- NOTE | 2018-09-18 15:53 | CT_ITS ---
STUDY: CT ABDOMEN AND PELVIS WITHOUT CONTRAST REASON FOR EXAM: Male, 28 years old. Diverticulitis RADIATION DOSAGE (If Supplied By Facility): CTDIvol = ( 14.09 ) mGy, DLP = ( 708.67 ) mGycm TECHNIQUE: Transaxial images were obtained from the dome of the diaphragm to the symphysis pubis without oral contrast, and without intravenous contrast. Sagittal and coronal images were reconstructed. Individualized dose optimization techniques were used for this CT. COMPARISON: Prior study of 09/17/2018 FINDINGS: There is left lingular infiltrate and/or atelectasis, similar to the previous day's study. The visualized portions of the heart are within normal limits. Normal liver. Normal gallbladder and extrahepatic biliary system. Normal spleen. Normal pancreas. Normal bilateral adrenal glands. Normal right kidney. Normal left kidney. Normal visualized stomach. Normal small intestine. There is diffuse sigmoid wall thickening with perisigmoidal fatty stranding. There is no evidence of extraluminal air or abnormal fluid collection in the region. Findings have increased in severity from the previous day's study. The appendix is visualized and appears normal. Normal abdominal aorta. Normal inferior vena cava. Normal retroperitoneum. Normal urinary bladder. The prostate, seminal vesicles, and seminal vesicle angles appear normal. Normal abdominal wall. Normal osseous structures. CT/Abdomen/Pelvis without Cont IMPRESSION: Sigmoid wall thickening and perisigmoidal fatty stranding consistent with acute diverticulitis, increased in severity from the previous day's study. There is no evidence of extraluminal gas or abnormal fluid collection in the region. Electronically Signed: Carroll Garcia MD at 16:55 EST , Service support ,
[2018-09-18 16:12] LABS: Absolute Neutrophil Count 14.6 X10^3/uL (2.0-7.7); Basophil# 0.02 X10^3/uL; Basophil% 0.1 % (0-1); Eosinophil# 0.01 X10^3/uL; Eosinophils% 0.1 % (0-5); Hematocrit 43.1 % (40-54); Hemoglobin 14.5 g/dl (13.0-16.5); Lymphocyte % 10.7 % (19-41); Mean Corp Hgb Conc 33.6 g/gl (32-36); Mean Corpuscular Hgb 27.9 pg (27.0-32.0); Mean Corpuscular Volume 82.9 fL (80-94); Mean Platelet Vol. 9.3 fl (6.2-12.0); Monocyte# 1.17 X10^3/uL; Monocyte% 6.6 % (0-10); Neutrophil # 14.64 X10^3/uL (2.7-7.7); Neutrophil % 82.4 % (47-70); Platelet Count 295 K/mm3 (150-450); RBC Distribution Width CV 12.7 % (11.6-14.6); RBC Distribution Width SD 38.6 fl (35.1-43.9); White Blood Count 17.8 K/mm3 (4.4-11.0)
[2018-09-18 16:26] LABS: Anion Gap 8 (5-15); BUN 8 mg/dL (7-18); BUN/Creat Ratio 6.8 RATIO (10-20); Calcium,Total 8.9 mg/dL (8.5-10.1); Chloride 100 mmol/L (98-107); Creatinine, Serum 1.17 mg/dL (0.70-1.30); EST Glomerular Filtration Rate 79 mL/min (>60); Est Glom Filt Rate - Afr Amer 96 mL/min (>60); Estimated Creatinine Clearance 94.84 ml/min; Glucose 115 mg/dL (74-106); Potassium 3.6 mmol/L (3.5-5.1); Sodium Level 136 mmol/L (136-145)
[2018-09-18 16:49] LABS: Differential Indicated SCAN CRITERIA MET; POSITIVE COUNT NO; POSITIVE DIFFERENTIAL NO; POSITIVE MORPHOLOGY YES; Reactive Lymphocyte 2+
--- NOTE | 2018-09-18 17:14 | ED.VISSUMM ---
- ER Visit Summary Date of Service: 09/18/18 Chief Complaint: Fever and chills with increased abdominal pain History of Present Illness: The patient is a 28 M who was seen yesterday and diagnosed with sigmoid diverticulitis. Patient was discharged home with appropriate antibiotics. He presents because of fever, chills and increased pain. He has pain with movement. Records from yesterday were reviewed and he had left lower quadrant abdominal pain without guarding or rebound tenderness. Patient states he did fill his prescription and has taken the antibiotics as instructed. He denies headache, visual, ocular auditory symptoms. He denies cardiac or respiratory symptoms. He denies dysuria, frequency, urgency or hematuria. He denies blood, mucus in his stool. He denies diarrhea. Last bowel movement was yesterday. He is fluctuating. He does report nausea without vomiting. He localizes the pain to the right and left lower quadrant greater on the left. He denies any testicular pain. Please read written note for complete detail Physical Examination: Vital signs noted and remarkable for heart rate of 108 and temperature 100. Head is atraumatic normocephalic. Pupils are equal round reactive. Extraocular muscles are intact. TMs are pearly white with landmarks noted. Nares patent with no drainage. Posterior pharynx without erythema or exudate. Uvula is midline. Tongue and buccal mucosa are dry there is no dysphonia or dysphasia. Trachea is midline. There is no stridor with auscultation of the neck. Heart is regular without murmur, gallop or rub. S1 and S2 are normal. Lungs are clear to auscultation with good movement of air bilaterally. Abdomen soft with involuntary guarding and rebound tenderness. Bowel sounds are diminished. There is slight tympany to percussion. There is no CVA tenderness. There is no umbilical or inguinal hernia appreciated. Is no inguinal lymphadenopathy. Lower extremity exam is unremarkable. Neuro exam is nonfocal. Test Results: White count is 17.8 thousand with no bandemia. CT of the abdomen reveals progression of his sigmoid diverticulitis with no free air pneumatosis of the bowel wall. Emergency Department Course and Treatment: IV was established. He is given 1 L of normal saline wide open. He was administered 4.5 g of Zosyn since he has diagnosis of diverticulitis and has progression of his disease based on history and physical. Case was discussed with Dr. Webb who agrees with obtaining CAT scan. Discussed if scan should be done with contrast or not. The scan was done without contrast. I was informed since patient was tachycardic and has a white count of 17.88 sepsis alert. Lactate was ordered. Since he received antibiotics yesterday has taken antibiotics prior to arrival and received antibiotics on presentation since he has peritonitis blood cultures were not obtained and are not required unless lactate is greater than 2. The hospitalist was paged for admission. Dr. Webb was re-paged and informed of CT results and lab results. He states he will see him in consultation and follow-up Treatment Plan: Admit n.p.o., IV antibiotics. Dr. Coello is concerned that he may have a developing ileus Disposition: Admit medical surgical unit Impression: 1. Acute diverticulitis sigmoid failed outpatient treatment 2. Sinus tachycardia documented monitor 3. Sepsis This note was generated with [employer] dictation software. It may contain incorrect words, spelling, and punctuation that were not noted in review of the chart prior to signing ED Disposition - Plan for ED Patient: Chief Complaint: Abd Pain Referrals: Abran Salas MD [Primary Care Provider] -
--- NOTE | 2018-09-18 17:14 | NURSING ---
DR BETTENCOURT PAGEKenneth
--- NOTE | 2018-09-18 17:36 | NURSING ---
[facility] ACUTE [facility]ID [facility]ERTICULIT[facility], FAILED OUTPATIENT, ILEUS
[2018-09-18 17:50] LABS: Lactic Acid 1.1 mmol/L (0.4-2.0)
--- NOTE | 2018-09-18 18:03 | HP.PCM_ITS ---
Problem List (1) Sigmoid diverticulitis Status: Chronic (2) Sepsis Status: Chronic History of Present Illness Date of Admission: 09/18/18 Chief Complaint: Abdominal pain, fever, chills. The patient is a 28 year old M who presents emergency room due to abdominal pain with fever, chills X3 days. Patient was discharged yesterday, 09/17/2018 from emergency room with Cipro and Flagyl which he was prescribed for sigmoid dive rticulitis. Patient returns with increased abdominal pain and continued fever, chills. Patient reports a history of diverticulitis in the past x2. He denies other past medical history. Reports intermittent blood in stool. Patient states he as intermittent diarrhea followed by constipation. He denies nausea, vomiting. Reports decreased appetite and bad taste in mouth. Patient states he was scheduled for outpatient EGD and colonoscopy in September which was arranged by his primary care physician, Dr. Salas. Past Medical History Past Medical History (Chronic Problems): Chronic Problems Sigmoid diverticulitis (Chronic) Sepsis (Chronic) Allergies aspirin [ASA] Allergy (Verified 09/18/18 15:19) Swelling Home Medications: Ambulatory Orders Medication Instructions Recorded Ciprofloxacin [Cipro] 500 mg PO BID #14 tab 09/17/18 Dicyclomine HCl [Bentyl] 20 mg PO TIDAC PRN 09/17/18 Metronidazole [Flagyl] 500 mg PO Q8H #21 tab 09/17/18 Polyethylene Glycol 3350 [Purelax] 17 gm PO PRN PRN 09/18/18 Surgical History: no surgical history Psychiatric History: No pertinent psych hx Lives: Alone Smoking Status: Never smoker Alcohol: None Drugs: None - *Family History Maternal History Items: - - Hx of diverticulitis Paternal History Items: Heart Disease Review of Systems Constitutional: Reports: Chills, Fever. Denies: Weight Change HEENT: Denies: Head Aches, Sinus Congestion, Sinus Drainage Cardiovascular: Denies: Chest Pain, Edema, Light Headedness, Palpitations, Syncope Respiratory: Denies: Cough, Shortness of breath at rest, Sputum production Gastrointestinal: Reports: Abdominal Pain, Hematochezia, - - Intermittent diarrhea and constipation. Denies: Nausea, Vomiting Genitourinary: Denies: Dysuria Musculoskeletal: Denies: Joint Pain, Joint Tenderness Skin: Denies: Rash, Wounds Neurological: Denies: Numbness, Tingling, Focal weakness Psychiatric: Denies: Anxiety, Depression, Homicidal Ideations, Suicidal Ideations Hematologic/ Lymphatic: Denies: Easy Bruising, Easy Bleeding VTE Information - Inpt Only VTE Present on Admission: No VTE Mechan Device Prophylaxis: None VTE Pharm Prophylaxis ordered?: No Reason prophylaxis not ordered:: Treatment Not Indicated - Physical Exam General: Alert, Oriented x3, Cooperative, No apparent distress HEENT: Atraumatic, PERRLA, EOMI, Normocephalic Neck: Supple, No JVD, Negative Carotid Bruits Lungs: Clear to auscultation, Normal air movement Cardiovascular: Regular Rhythm, Normal S1, Normal S2, No murmurs, Tachycardic Abdomen: Bowel Sounds Present, Soft, Non-Distended, Tender Extremities: No clubbing, No cyanosis, No edema, Capillary Refill Less than 3 Seconds Skin: No rashes, No breakdown Musculoskeletal: No Tenderness to Palpation of Joints or Extremities Neurological: Cranial nerves II-XII grossly intact, Neuro grossly intact Psych/Mental Status: Normal Affect, Appropriate Vital Signs Temp Pulse Resp BP Pulse Ox 100.7 F H 99 18 128/84 H 100 09/18/18 16:54 09/18/18 16:54 09/18/18 16:54 09/18/18 16:54 09/18/18 16:54 Oxygen Delivery Method Room Air Weight: 186 lb 1.122 oz Body Mass Index (BMI) 27.4 Laboratory Tests Past 24 Hrs 09/18/18 09/18/18 09/18/18 12:20 16:00 16:00 WBC 17.8 H RBC 5.20 Hgb 14.5 Hct 43.1 MCV 82.9 MCH 27.9 MCHC 33.6 RDW 12.7 RDW Differential 38.6 Plt Count 295 MPV 9.3 Immature Gran % (Auto) 0.100 Neut % (Auto) 82.4 H Lymph % (Auto) 10.7 L [place] % (Auto) 6.6 Eos % (Auto) 0.1 Baso % (Auto) 0.1 Absolute Neuts (auto) 14.6 H Absolute Lymphs (auto) 1.90 Total Counted Not Reportable Reactive Lymphocytes 2+ Sodium 136 Potassium 3.6 Chloride 100 Carbon Dioxide 28.0 Anion Gap 8 BUN 8 Creatinine 1.17 Estim Creat Clear Calc 94.84 Est GFR (MDRD) Af Amer 96 Est GFR (MDRD) Non-Af 79 BUN/Creatinine Ratio 6.8 L Glucose 115 H Lactic Acid 1.1 Calcium 8.9 Assessment/Plan 1. Sepsis secondary to acute sigmoid diverticulitis, failed outpatient antibiotic therapy with Flagyl and Cipro-sepsis criteria with tachycardia, leukocytosis, temp 100.7F, present on admission. CT of abdomen showed sigmoid wall thickening and perisigmoidal fatty stranding consistent with acute diverticulitis, increased in severity from prior study. No evidence of extraluminal gas or abnormal fluid collection in the region. Clear liquids. IV Unasyn. General surgery, Dr. Coello consulted. PRN pain regimen. 2. Sinus tachycardia, mild-secondary to #1. DVT prophylaxis-not indicated, low risk. This patient was seen by LISBET Merrill under the supervision of Dr. Ortiz.
[2018-09-18] MEDS: Acetaminophen 325 MG Tablet 650 MG PO (20:21)
[2018-09-19] MEDS: 0.9% NaCl IVPB Med Flush (250 mL) 15 ML IV ×2 (00:08→23:39)
[2018-09-19 03:44] VITALS: BP 134/76; PULSE 98; RESP 16; TEMP 37.5; O2SAT 97
[2018-09-19] MEDS: Famotidine 20 MG Tablet PO ×2 (04:14→21:05)
[2018-09-19] MEDS: Acetaminophen 325 MG Tablet 650 MG PO ×2 (04:14→17:04)
[2018-09-19] MEDS: Morphine 2 MG/ML Syringe IV (04:19)
[2018-09-19 06:11] LABS: Absolute Lymphocyte Count 1.07 X10^3/ul (0.83-4.51); Absolute Neutrophil Count 14.8 X10^3/uL (2.0-7.7); Basophil# 0.02 X10^3/uL; Basophil% 0.1 % (0-1); Eosinophil# 0.03 X10^3/uL; Eosinophils% 0.2 % (0-5); Hematocrit 39.9 % (40-54); Hemoglobin 13.5 g/dl (13.0-16.5); Lymphocyte # 1.07 X10^3/ul (4.0); Lymphocyte % 5.9 % (19-41); Mean Corp Hgb Conc 33.8 g/gl (32-36); Mean Corpuscular Hgb 28.2 pg (27.0-32.0); Mean Corpuscular Volume 83.3 fL (80-94); Mean Platelet Vol. 9.6 fl (6.2-12.0); Monocyte# 2.32 X10^3/uL; Monocyte% 12.7 % (0-10); Neutrophil # 14.82 X10^3/uL (2.7-7.7); Neutrophil % 80.9 % (47-70); Platelet Count 294 K/mm3 (150-450); RBC Distribution Width SD 39.2 fl (35.1-43.9); Red Blood Count 4.79 M/mm3 (4.6-6.2); White Blood Count 18.3 K/mm3 (4.4-11.0)
[2018-09-19 06:12] LABS: Differential Indicated SCAN CRITERIA MET; POSITIVE COUNT NO; POSITIVE DIFFERENTIAL YES; POSITIVE MORPHOLOGY YES
[2018-09-19 06:18] VITALS: TEMP 36.9
[2018-09-19 10:25] VITALS: BP 149/82; PULSE 96; RESP 18; TEMP 37; O2SAT 98
--- NOTE | 2018-09-19 10:45 | CASEMGMT ---
MARVIN HYLTON Face to Face with patient for initial transition planning/care coordination assessment. RN CM introduced self and role at [facility]. Patient lying in bed, alert and oriented. Patient willing to participate in assessment and is able to answer all questions appropriately. Care providers, pharmacy, and demographics verified. Patient wishes to discharge home, denies need for home health at this time. Patient states he has no further needs or concerns at this time. CM to follow for discharge planning needs that may arise. Disposition Plan: Patient to discharge home with family support and follow-up plans in place. Cinthya MCCORMICK, RN, CM
--- NOTE | 2018-09-19 11:46 | PCM.PROGNOTE ---
<Hui Green - Last Filed: 09/19/18 11:53> Subjective: Patient seen and examined. Abdominal pain and fever improved. Continues to have leukocytosis. Denies current complaints. - Physical Exam General: Alert, Oriented x3, Cooperative HEENT: Atraumatic, PERRLA, EOMI, Normocephalic Neck: Supple, No JVD, Negative Carotid Bruits Lungs: Clear to auscultation, Normal air movement Cardiovascular: Regular rate, Regular Rhythm, Normal S1, Normal S2, No murmurs Abdomen: Bowel Sounds Present, Soft, Non-Distended, Tender - Mild generalized Extremities: No clubbing, No cyanosis, No edema, Capillary Refill Less than 3 Seconds Skin: No rashes, No breakdown Musculoskeletal: No Tenderness to Palpation of Joints or Extremities Neurological: Cranial nerves II-XII grossly intact, Neuro grossly intact Psych/Mental Status: Normal Affect, Appropriate Vital Signs Temp Pulse Resp BP Pulse Ox 98.6 F 96 18 149/82 H 98 09/19/18 10:25 09/19/18 10:25 09/19/18 10:25 09/19/18 10:25 09/19/18 10:25 Oxygen Delivery Method Room Air Weight: 185 lb 4.8 oz Body Mass Index (BMI) 27.3 Intake and Output for Last 24 Hours 09/17/18 09/18/18 09/19/18 23:59 23:59 23:59 Intake Total 1029 / 1029 Balance 1029 / 1029 Laboratory Tests Past 24 Hrs 09/18/18 09/18/18 09/18/18 12:20 16:00 16:00 WBC 17.8 H RBC 5.20 Hgb 14.5 Hct 43.1 MCV 82.9 MCH 27.9 MCHC 33.6 RDW 12.7 RDW Differential 38.6 Plt Count 295 MPV 9.3 Immature Gran % (Auto) 0.100 Neut % (Auto) 82.4 H Lymph % (Auto) 10.7 L [place] % (Auto) 6.6 Eos % (Auto) 0.1 Baso % (Auto) 0.1 Absolute Neuts (auto) 14.6 H Absolute Lymphs (auto) 1.90 Total Counted Not Reportable Reactive Lymphocytes 2+ Sodium 136 Potassium 3.6 Chloride 100 Carbon Dioxide 28.0 Anion Gap 8 BUN 8 Creatinine 1.17 Estim Creat Clear Calc 94.84 Est GFR (MDRD) Af Amer 96 Est GFR (MDRD) Non-Af 79 BUN/Creatinine Ratio 6.8 L Glucose 115 H Lactic Acid 1.1 Calcium 8.9 09/19/18 05:26 WBC 18.3 H RBC 4.79 Hgb 13.5 Hct 39.9 L MCV 83.3 MCH 28.2 MCHC 33.8 RDW 13.0 RDW Differential 39.2 Plt Count 294 MPV 9.6 Immature Gran % (Auto) 0.200 Neut % (Auto) 80.9 H Lymph % (Auto) 5.9 L [place] % (Auto) 12.7 H Eos % (Auto) 0.2 Baso % (Auto) 0.1 Absolute Neuts (auto) 14.8 H Absolute Lymphs (auto) 1.07 Total Counted Not Reportable Reactive Lymphocytes Sodium Potassium Chloride Carbon Dioxide Anion Gap BUN Creatinine Estim Creat Clear Calc Est GFR (MDRD) Af Amer Est GFR (MDRD) Non-Af BUN/Creatinine Ratio Glucose Lactic Acid Calcium Medical Necessity - Tobacco Use Smoking Status: Never smoker Assessment/Plan 1. Sepsis secondary to acute sigmoid diverticulitis, failed outpatient antibiotic therapy with Flagyl and Cipro-sepsis criteria with tachycardia, leukocytosis, temp 100.7F, present on admission. CT of abdomen showed sigmoid wall thickening and perisigmoidal fatty stranding consistent with acute diverticulitis, increased in severity from prior study. No evidence of extraluminal gas or abnormal fluid collection in the region. Clear liquids. IV Unasyn. General surgery, Dr. Coello consulted, pending. PRN pain regimen. 2. Sinus tachycardia, mild-secondary to #1. Resolved. DVT prophylaxis-not indicated, low risk. This patient was seen by LISBET Merrill under the supervision of Dr. Connelly. <Stevenson Connelly - Last Filed: 09/19/18 14:12> Subjective: Seen and examined. Patient has third episode of sigmoid diverticulitis. First one about 3 years ago and second 1 about 6 months ago. Denies having previous colonoscopy. Low-grade fever yesterday night that is improved. Abdominal pain is improved as mentioned - Physical Exam General: Alert, Oriented x3, Cooperative HEENT: Atraumatic, PERRLA, EOMI, Normocephalic Neck: Supple, No JVD, Negative Carotid Bruits Lungs: Clear to auscultation, Normal air movement Cardiovascular: Regular rate, Regular Rhythm, Normal S1, Normal S2, No murmurs Abdomen: Bowel Sounds Present, Soft, Non-Distended, Tender - Mild generalized Predominantly in left lower quadrant Extremities: No edema, Capillary Refill Less than 3 Seconds Skin: No rashes, No breakdown Musculoskeletal: No Tenderness to Palpation of Joints or Extremities Neurological: Cranial nerves II-XII grossly intact Psych/Mental Status: Normal Affect, Appropriate Vital Signs Temp Pulse Resp BP Pulse Ox 98.6 F 96 18 149/82 H 98 09/19/18 10:25 09/19/18 10:25 09/19/18 10:25 09/19/18 10:25 09/19/18 10:25 Oxygen Delivery Method Room Air Weight: 185 lb 4.8 oz Body Mass Index (BMI) 27.3 Intake and Output for Last 24 Hours 09/17/18 09/18/18 09/19/18 23:59 23:59 23:59 Intake Total 1573 / 1573 Balance 1573 / 1573 Laboratory Tests Past 24 Hrs 09/18/18 09/18/18 09/18/18 12:20 16:00 16:00 WBC 17.8 H RBC 5.20 Hgb 14.5 Hct 43.1 MCV 82.9 MCH 27.9 MCHC 33.6 RDW 12.7 RDW Differential 38.6 Plt Count 295 MPV 9.3 Immature Gran % (Auto) 0.100 Neut % (Auto) 82.4 H Lymph % (Auto) 10.7 L [place] % (Auto) 6.6 Eos % (Auto) 0.1 Baso % (Auto) 0.1 Absolute Neuts (auto) 14.6 H Absolute Lymphs (auto) 1.90 Total Counted Not Reportable Reactive Lymphocytes 2+ Sodium 136 Potassium 3.6 Chloride 100 Carbon Dioxide 28.0 Anion Gap 8 BUN 8 Creatinine 1.17 Estim Creat Clear Calc 94.84 Est GFR (MDRD) Af Amer 96 Est GFR (MDRD) Non-Af 79 BUN/Creatinine Ratio 6.8 L Glucose 115 H Lactic Acid 1.1 Calcium 8.9 09/19/18 05:26 WBC 18.3 H RBC 4.79 Hgb 13.5 Hct 39.9 L MCV 83.3 MCH 28.2 MCHC 33.8 RDW 13.0 RDW Differential 39.2 Plt Count 294 MPV 9.6 Immature Gran % (Auto) 0.200 Neut % (Auto) 80.9 H Lymph % (Auto) 5.9 L [place] % (Auto) 12.7 H Eos % (Auto) 0.2 Baso % (Auto) 0.1 Absolute Neuts (auto) 14.8 H Absolute Lymphs (auto) 1.07 Total Counted Not Reportable Reactive Lymphocytes Sodium Potassium Chloride Carbon Dioxide Anion Gap BUN Creatinine Estim Creat Clear Calc Est GFR (MDRD) Af Amer Est GFR (MDRD) Non-Af BUN/Creatinine Ratio Glucose Lactic Acid Calcium Assessment/Plan This patient was seen in conjunction with STATIC BALANCERHui. I have independently interviewed and examined the patient and reviewed pertinent history, examination findings, laboratory and plan of management. I have reviewed the note and agree with the documented findings with the few additional points. In brief, patient is admitted for abdominal pain, fever, tachycardia and leukocytosis consistent with sepsis secondary to acute on recurrent sigmoid diverticulitis; failed outpatient therapy as mentioned above. Discussed with the patient, his and [id number] present in the room regarding colonoscopy in 3-4 weeks and and possible sigmoid colectomy for recurrent diverticulitis. Neurosurgery consulted. I have discussed my assessment with Hui COLLINS and orders have been reviewed. Code Visit Inpatient E&M: 33155 Subs Hosp L3
--- NOTE | 2018-09-19 11:52 | PN_ITS ---
<Hui Green - Last Filed: 09/19/18 11:53> Subjective: Patient seen and examined. Abdominal pain and fever improved. Continues to have leukocytosis. Denies current complaints. - Physical Exam General: Alert, Oriented x3, Cooperative HEENT: Atraumatic, PERRLA, EOMI, Normocephalic Neck: Supple, No JVD, Negative Carotid Bruits Lungs: Clear to auscultation, Normal air movement Cardiovascular: Regular rate, Regular Rhythm, Normal S1, Normal S2, No murmurs Abdomen: Bowel Sounds Present, Soft, Non-Distended, Tender - Mild generalized Extremities: No clubbing, No cyanosis, No edema, Capillary Refill Less than 3 Seconds Skin: No rashes, No breakdown Musculoskeletal: No Tenderness to Palpation of Joints or Extremities Neurological: Cranial nerves II-XII grossly intact, Neuro grossly intact Psych/Mental Status: Normal Affect, Appropriate Vital Signs Temp Pulse Resp BP Pulse Ox 98.6 F 96 18 149/82 H 98 09/19/18 10:25 09/19/18 10:25 09/19/18 10:25 09/19/18 10:25 09/19/18 10:25 Oxygen Delivery Method Room Air Weight: 185 lb 4.8 oz Body Mass Index (BMI) 27.3 Intake and Output for Last 24 Hours 09/17/18 09/18/18 09/19/18 23:59 23:59 23:59 Intake Total 1029 / 1029 Balance 1029 / 1029 Laboratory Tests Past 24 Hrs 09/18/18 09/18/18 09/18/18 12:20 16:00 16:00 WBC 17.8 H RBC 5.20 Hgb 14.5 Hct 43.1 MCV 82.9 MCH 27.9 MCHC 33.6 RDW 12.7 RDW Differential 38.6 Plt Count 295 MPV 9.3 Immature Gran % (Auto) 0.100 Neut % (Auto) 82.4 H Lymph % (Auto) 10.7 L [place] % (Auto) 6.6 Eos % (Auto) 0.1 Baso % (Auto) 0.1 Absolute Neuts (auto) 14.6 H Absolute Lymphs (auto) 1.90 Total Counted Not Reportable Reactive Lymphocytes 2+ Sodium 136 Potassium 3.6 Chloride 100 Carbon Dioxide 28.0 Anion Gap 8 BUN 8 Creatinine 1.17 Estim Creat Clear Calc 94.84 Est GFR (MDRD) Af Amer 96 Est GFR (MDRD) Non-Af 79 BUN/Creatinine Ratio 6.8 L Glucose 115 H Lactic Acid 1.1 Calcium 8.9 09/19/18 05:26 WBC 18.3 H RBC 4.79 Hgb 13.5 Hct 39.9 L MCV 83.3 MCH 28.2 MCHC 33.8 RDW 13.0 RDW Differential 39.2 Plt Count 294 MPV 9.6 Immature Gran % (Auto) 0.200 Neut % (Auto) 80.9 H Lymph % (Auto) 5.9 L [place] % (Auto) 12.7 H Eos % (Auto) 0.2 Baso % (Auto) 0.1 Absolute Neuts (auto) 14.8 H Absolute Lymphs (auto) 1.07 Total Counted Not Reportable Reactive Lymphocytes Sodium Potassium Chloride Carbon Dioxide Anion Gap BUN Creatinine Estim Creat Clear Calc Est GFR (MDRD) Af Amer Est GFR (MDRD) Non-Af BUN/Creatinine Ratio Glucose Lactic Acid Calcium Medical Necessity - Tobacco Use Smoking Status: Never smoker Assessment/Plan 1. Sepsis secondary to acute sigmoid diverticulitis, failed outpatient antibiotic therapy with Flagyl and Cipro-sepsis criteria with tachycardia, leukocytosis, temp 100.7F, present on admission. CT of abdomen showed sigmoid wall thickening and perisigmoidal fatty stranding consistent with acute div erticulitis, increased in severity from prior study. No evidence of extraluminal gas or abnormal fluid collection in the region. Clear liquids. IV Unasyn. General surgery, Dr. Coello consulted, pending. PRN pain regimen. 2. Sinus tachycardia, mild-secondary to #1. Resolved. DVT prophylaxis-not indicated, low risk. This patient was seen by LISBET Merrill under the supervision of Dr. Connelly. <Stevenson Connelly - Last Filed: 09/19/18 14:12> Subjective: Seen and examined. Patient has third episode of sigmoid diverticulitis. First one about 3 years ago and second 1 about 6 months ago. Denies having previous colonoscopy. Low- grade fever yesterday night that is improved. Abdominal pain is improved as mentioned - Physical Exam General: Alert, Oriented x3, Cooperative HEENT: Atraumatic, PERRLA, EOMI, Normocephalic Neck: Supple, No JVD, Negative Carotid Bruits Lungs: Clear to auscultation, Normal air movement Cardiovascular: Regular rate, Regular Rhythm, Normal S1, Normal S2, No murmurs Abdomen: Bowel Sounds Present, Soft, Non-Distended, Tender - Mild generalized Predominantly in left lower quadrant Extremities: No edema, Capillary Refill Less than 3 Seconds Skin: No rashes, No breakdown Musculoskeletal: No Tenderness to Palpation of Joints or Extremities Neurological: Cranial nerves II-XII grossly intact Psych/Mental Status: Normal Affect, Appropriate Vital Signs Temp Pulse Resp BP Pulse Ox 98.6 F 96 18 149/82 H 98 09/19/18 10:25 09/19/18 10:25 09/19/18 10:25 09/19/18 10:25 09/19/18 10:25 Oxygen Delivery Method Room Air Weight: 185 lb 4.8 oz Body Mass Index (BMI) 27.3 Intake and Output for Last 24 Hours 09/17/18 09/18/18 09/19/18 23:59 23:59 23:59 Intake Total 1573 / 1573 Balance 1573 / 1573 Laboratory Tests Past 24 Hrs 09/18/18 09/18/18 09/18/18 12:20 16:00 16:00 WBC 17.8 H RBC 5.20 Hgb 14.5 Hct 43.1 MCV 82.9 MCH 27.9 MCHC 33.6 RDW 12.7 RDW Differential 38.6 Plt Count 295 MPV 9.3 Immature Gran % (Auto) 0.100 Neut % (Auto) 82.4 H Lymph % (Auto) 10.7 L [place] % (Auto) 6.6 Eos % (Auto) 0.1 Baso % (Auto) 0.1 Absolute Neuts (auto) 14.6 H Absolute Lymphs (auto) 1.90 Total Counted Not Reportable Reactive Lymphocytes 2+ Sodium 136 Potassium 3.6 Chloride 100 Carbon Dioxide 28.0 Anion Gap 8 BUN 8 Creatinine 1.17 Estim Creat Clear Calc 94.84 Est GFR (MDRD) Af Amer 96 Est GFR (MDRD) Non-Af 79 BUN/Creatinine Ratio 6.8 L Glucose 115 H Lactic Acid 1.1 Calcium 8.9 09/19/18 05:26 WBC 18.3 H RBC 4.79 Hgb 13.5 Hct 39.9 L MCV 83.3 MCH 28.2 MCHC 33.8 RDW 13.0 RDW Differential 39.2 Plt Count 294 MPV 9.6 Immature Gran % (Auto) 0.200 Neut % (Auto) 80.9 H Lymph % (Auto) 5.9 L [place] % (Auto) 12.7 H Eos % (Auto) 0.2 Baso % (Auto) 0.1 Absolute Neuts (auto) 14.8 H Absolute Lymphs (auto) 1.07 Total Counted Not Reportable Reactive Lymphocytes Sodium Potassium Chloride Carbon Dioxide Anion Gap BUN Creatinine Estim Creat Clear Calc Est GFR (MDRD) Af Amer Est GFR (MDRD) Non-Af BUN/Creatinine Ratio Glucose Lactic Acid Calcium Assessment/Plan This patient was seen in conjunction with INTERNAL COMMUNICATIONS MANAGERHui. I have independently interviewed and examined the patient and reviewed pertinent history, examination findings, laboratory and plan of management. I have reviewed the note and agree with the documented findings with the few additional points. In brief, patient is admitted for abdominal pain, fever, tachycardia and leukocytosis consistent with sepsis secondary to acute on recurrent sigmoid diverticulitis; failed outpatient therapy as mentioned above. Discussed with the patient, his and [id number] present in the room regarding colonoscopy in 3-4 weeks and and possible sigmoid colectomy for recurrent diverticulitis. Neurosurgery consulted. I have discussed my assessment with Hui COLLINS and orders have been reviewed. Code Visit Inpatient E&M: 51305 Subs Hosp L3
[2018-09-19] MEDS: 0.9% NaCl Peripheral Flush Adult/Peds IV ×2 (11:55→18:22)
[2018-09-19 14:35] VITALS: BP 132/76; PULSE 88; RESP 18; TEMP 37.3; O2SAT 98
[2018-09-19 16:48] VITALS: TEMP 36.8
--- NOTE | 2018-09-19 17:08 | PCM.CONS.GEN ---
Reason for Consult Date of Consultation: 09/19/18 Reason for Consultation: abdominal pain-diverticulitis History of Present Illness: The patient is a 28 year old M he presented to [facility] emergency department a 3 day history of left lower quadrant abdominal pain. He presented to [facility] after 2 days of pain. He underwent CT scan which demonstrated sigmoid thickening consistent with diverticulitis. He was discharged on oral antibiotics. He returned 24 hours later with worsening abdominal pain and a feeling of nausea and abdominal discomfort he was then admitted with a diagnosis of diverticulitis and started on IV antibiotics-Cipro and Flagyl. the patient notes he is still passing flatus and having some liquid bowel movements. Past Medical History Past Medical History (Chronic Problems): Chronic Problems Sigmoid diverticulitis (Chronic) Sepsis (Chronic) Allergies aspirin [ASA] Allergy (Verified 09/18/18 15:19) Swelling Home Medications: Ambulatory Orders Medication Instructions Recorded Ciprofloxacin [Cipro] 500 mg PO BID #14 tab 09/17/18 Dicyclomine HCl [Bentyl] 20 mg PO TIDAC PRN 09/17/18 Metronidazole [Flagyl] 500 mg PO Q8H #21 tab 09/17/18 Polyethylene Glycol 3350 [Purelax] 17 gm PO PRN PRN 09/18/18 Surgical History: no surgical history Psychiatric History: No pertinent psych hx Lives: Alone Smoking Status: Never smoker Alcohol: None Drugs: None - *Family History Maternal History Items: - - Hx of diverticulitis Paternal History Items: Heart Disease Review of Systems Constitutional: Denies: Chills, Fever, Weight Change HEENT: Denies: Head Aches, Sinus Congestion, Sinus Drainage Cardiovascular: Denies: Chest Pain, Palpitations Respiratory: Denies: Cough, Shortness of breath at rest, Sputum production Gastrointestinal: Reports: Abdominal Pain. Denies: Nausea, Vomiting Genitourinary: Denies: Dysuria Musculoskeletal: Denies: Joint Pain, Joint Tenderness Skin: Denies: Rash, Wounds Neurological: Denies: Numbness, Tingling, Focal weakness Psychiatric: Denies: Anxiety, Depression, Homicidal Ideations, Suicidal Ideations Hematologic/ Lymphatic: Denies: Easy Bruising, Easy Bleeding - Physical Exam General: Alert, Oriented x3, Cooperative Lungs: Clear to auscultation, Normal air movement Cardiovascular: Regular rate, No murmurs Abdomen: Bowel Sounds Present, Soft, Tender - left lower quadrant without diffuse peritoneal signs Vital Signs Temp Pulse Resp BP Pulse Ox 98.3 F 88 18 132/76 H 98 09/19/18 16:48 09/19/18 14:35 09/19/18 14:35 09/19/18 14:35 09/19/18 14:35 Oxygen Delivery Method Room Air Weight: 84.051 kg Body Mass Index (BMI) 27.3 Intake and Output for Last 24 Hours 09/17/18 09/18/18 09/19/18 23:59 23:59 23:59 Intake Total 1573 / 1573 Balance 1573 / 1573 Laboratory Tests Past 24 Hrs 09/18/18 09/19/18 12:20 05:26 WBC 18.3 H RBC 4.79 Hgb 13.5 Hct 39.9 L MCV 83.3 MCH 28.2 MCHC 33.8 RDW 13.0 RDW Differential 39.2 Plt Count 294 MPV 9.6 Immature Gran % (Auto) 0.200 Neut % (Auto) 80.9 H Lymph % (Auto) 5.9 L [place] % (Auto) 12.7 H Eos % (Auto) 0.2 Baso % (Auto) 0.1 Absolute Neuts (auto) 14.8 H Absolute Lymphs (auto) 1.07 Total Counted Not Reportable Lactic Acid 1.1 Assessment/Plan significant colonic thickening-diverticulitis versus colitis? The patient is currently on Cipro and Flagyl IV. If he is tolerating liquids I'm comfortable with them maintaining on a liquid diet. Agree with watching the patient clinically. Interestingly, I don't see significant diverticulosis and the patient is relatively young. We will ask about any foreign travel or unusual foods lately that might cause a localized colitis is the etiology versus again diverticulitis.
[2018-09-19 20:54] VITALS: BP 148/84; PULSE 90; RESP 14; TEMP 36.9; O2SAT 98
[2018-09-20 04:12] VITALS: BP 130/77; PULSE 90; RESP 16; TEMP 36.8; O2SAT 99
[2018-09-20 07:15] LABS: Hematocrit 39.7 % (40-54); Hemoglobin 13.2 g/dl (13.0-16.5); Mean Corp Hgb Conc 33.2 g/gl (32-36); Mean Corpuscular Hgb 27.7 pg (27.0-32.0); Mean Corpuscular Volume 83.4 fL (80-94); Mean Platelet Vol. 9.2 fl (6.2-12.0); Platelet Count 306 K/mm3 (150-450); RBC Distribution Width CV 12.9 % (11.6-14.6); RBC Distribution Width SD 39.2 fl (35.1-43.9); Red Blood Count 4.76 M/mm3 (4.6-6.2); White Blood Count 12.3 K/mm3 (4.4-11.0)
[2018-09-20 07:16] LABS: Scan Indicated on CBC? Y/N NO
--- NOTE | 2018-09-20 09:33 | PCM.DC ---
- Discharge Diagnoses Current Active Problems: Current Active and Chronic Problems Sigmoid diverticulitis (Chronic) Sepsis (Chronic) You will use the following diet at home:: Other - Low gastric stimulus. Discharge Activity: Return to Normal Activity Call your doctor if you observe: Fever of 101 or Higher, - - Increased abdominal pain Additional Instructions: Continue prior flagyl and cipro antibiotic prescriptions you were given in emergency room. Complete full course of antibiotic. Dr. Coello will see you in his office at the end of next week and EGD/Colonoscopy will be scheduled at that time. If Dr. Coello's office does not contact you, please call to schedule appointment. Allergies/Adverse Reactions: Allergies aspirin [ASA] Allergy (Verified 09/18/18 15:19) Swelling Medications to take at Discharge Ciprofloxacin [Cipro] 500 mg PO BID #14 tab 09/17/18 Dicyclomine HCl [Bentyl] 20 mg PO TIDAC PRN 09/17/18 Metronidazole [Flagyl] 500 mg PO Q8H #21 tab 09/17/18 Polyethylene Glycol 3350 [Purelax] 17 gm PO PRN PRN 09/18/18 Lactobacillus Acidophilus/Fos [Acidophilus Probiotic Tablet] 1 each PO DAILY #30 tablet 09/20/18 The following prescriptions were given: Lactobacillus Acidophilus/Fos [Acidophilus Probiotic Tablet] 1 each PO DAILY #30 tablet Primary Care Physician: Abran Salas MD [Primary Care Provider] - Please follow up with your Primary Care Physician in: 1 Week Test Results: Test results from this visit will be discussed in further detail at your follow-up appointment, if applicable. Please Follow Up With: Richi Coello MD - [phone] When: End of next week, call to schedule Proposed Discharge Date: 09/20/18 - \
--- NOTE | 2018-09-20 09:37 | DCINST_ITS ---
- Discharge Diagnoses Current Active Problems: Current Active and Chronic Problems Sigmoid diverticulitis (Chronic) Sepsis (Chronic) You will use the following diet at home:: Other - Low gastric stimulus. Discharge Activity: Return to Normal Activity Call your doctor if you observe: Fever of 101 or Higher, - - Increased abdominal pain Additional Instructions: Continue prior flagyl and cipro antibiotic prescriptions you were given in emergency room. Complete full course of antibiotic. Dr. Coello will see you in his office at the end of next week and EGD/Colonoscopy will be scheduled at that time. If Dr. Coello's office does not contact you, please call to schedule appointment. Allergies/Adverse Reactions: Allergies aspirin [ASA] Allergy (Verified 09/18/18 15:19) Swelling Medications to take at Discharge Ciprofloxacin [Cipro] 500 mg PO BID #14 tab 09/17/18 Dicyclomine HCl [Bentyl] 20 mg PO TIDAC PRN 09/17/18 Metronidazole [Flagyl] 500 mg PO Q8H #21 tab 09/17/18 Polyethylene Glycol 3350 [Purelax] 17 gm PO PRN PRN 09/18/18 Lactobacillus Acidophilus/Fos [Acidophilus Probiotic Tablet] 1 each PO DAILY #30 tablet 09/20/18 The following prescriptions were given: Lactobacillus Acidophilus/Fos [Acidophilus Probiotic Tablet] 1 each PO DAILY #30 tablet Primary Care Physician: Abran Salas MD [Primary Care Provider] - Please follow up with your Primary Care Physician in: 1 Week Test Results: Test results from this visit will be discussed in further detail at your follow- up appointment, if applicable. Please Follow Up With: Richi Coello MD - [phone] When: End of next week, call to schedule Proposed Discharge Date: 09/20/18 - \
--- NOTE | 2018-09-20 09:42 | PCM.DC.SUM ---
<Hui Green - Last Filed: 09/20/18 09:48> Discharge Date and Diagnosis Date of Admission: 09/18/18 Date of Discharge: 09/20/18 - Primary Discharge Diagnosis 1. Sepsis secondary to acute sigmoid diverticulitis, failed outpatient antibiotic therapy 2. Sinus tachycardia, secondary to #1-resolved - Secondary Discharge Diagnosis Chronic Problems Sigmoid diverticulitis (Chronic) Sepsis (Chronic) Hospital Course and Treatment Imaging Results: Diagnostic Data Abdomen/Pelvis CT 09/18/18 15:53 IMPRESSION: Sigmoid wall thickening and perisigmoidal fatty stranding consistent with acute diverticulitis, increased in severity from the previous day's study. There is no evidence of extraluminal gas or abnormal fluid collection in the region. Electronically Signed: Carroll Garcia MD at 16:55 EST , Service support , Dr. Coello- General Surgery Operations: None Procedures: None Summary of Care Provided: The patient is a 28 year old M admitted 09/18/2018 due to abdominal pain, fever, chills. 1. Sepsis secondary to acute sigmoid diverticulitis, failed outpatient antibiotic therapy with Flagyl and Cipro-sepsis criteria with tachycardia, leukocytosis, temp 100.7F, present on admission. CT of abdomen showed sigmoid wall thickening and perisigmoidal fatty stranding consistent with acute diverticulitis, increased in severity from prior study. No evidence of extraluminal gas or abnormal fluid collection in the region. IV Unasyn during admission. Discharged on oral Cipro and oral Flagyl which was previously prescribed in ER. General surgery, Dr. Coello consulted. Stool studies pending at discharge. Patient will follow-up with Dr. Webb next week with plans for scope as outpatient. Follow-up with primary care physician in 1 week. 2. Sinus tachycardia, mild-secondary to #1. Resolved. General: Alert, Oriented x3, Cooperative HEENT: Atraumatic, PERRLA, EOMI, Normocephalic Neck: Supple, No JVD, Negative Carotid Bruits Lungs: Clear to auscultation, Normal air movement Cardiovascular: Regular rate, Regular Rhythm, Normal S1, Normal S2, No murmurs Abdomen: Bowel Sounds Present, Soft, Non-Distended, Tender - Mild generalized Extremities: No clubbing, No cyanosis, No edema, Capillary Refill Less than 3 Seconds Skin: No rashes, No breakdown Musculoskeletal: No Tenderness to Palpation of Joints or Extremities Neurological: Cranial nerves II-XII grossly intact, Neuro grossly intact Psych/Mental Status: Normal Affect, Appropriate Patient seen and examined prior to discharge. Physical assessment as noted above. Patient is stable for discharge with follow up recommendations as noted above. This patient was seen by LISBET Merrill under the supervision of Dr. Connelly. - Physical Exam Vital Signs Temp Pulse Resp BP Pulse Ox 98.3 F 90 16 130/77 H 99 09/20/18 04:12 09/20/18 04:12 09/20/18 04:12 09/20/18 04:12 09/20/18 04:12 Oxygen Delivery Method Room Air Weight: 185 lb 4.8 oz Body Mass Index (BMI) 27.3 Intake and Output for Last 24 Hours 09/18/18 09/19/18 09/20/18 23:59 23:59 23:59 Intake Total 1873 / 1873 958.5 / 958.5 Balance 1873 / 1873 958.5 / 958.5 Laboratory Tests Past 24 Hrs 09/20/18 06:36 WBC 12.3 H RBC 4.76 Hgb 13.2 Hct 39.7 L MCV 83.4 MCH 27.7 MCHC 33.2 RDW 12.9 RDW Differential 39.2 Plt Count 306 MPV 9.2 Discharge Diet: - - Low gastric stimulus Discharge Activity: Return to Normal Activity Call your doctor if you observe: Fever of 101 or Higher, - - Increased abdominal pain Home Medications: Medications to take at Discharge Ciprofloxacin [Cipro] 500 mg PO BID #14 tab 09/17/18 Dicyclomine HCl [Bentyl] 20 mg PO TIDAC PRN 09/17/18 Metronidazole [Flagyl] 500 mg PO Q8H #21 tab 09/17/18 Polyethylene Glycol 3350 [Purelax] 17 gm PO PRN PRN 09/18/18 Lactobacillus Acidophilus/Fos [Acidophilus Probiotic Tablet] 1 each PO DAILY #30 tablet 09/20/18 Following Prescrptions Were Given to Patient: Lactobacillus Acidophilus/Fos [Acidophilus Probiotic Tablet] 1 each PO DAILY #30 tablet Primary Care Physician: Abran Salas MD [Primary Care Provider] - Please follow up with your Primary Care Physician in: 1 Week Please Follow Up With: Richi Coello MD - [phone] When: End of next week, call to schedule Disposition: Home Minutes spent on discharge:: 35 Patient Condition:: Stable Medical Necessity - Tobacco Use Smoking Status: Never smoker Meaningful Use Info Meaningful Use Diagnoses (Choose all that apply): None applicable <Stevenson Connelly - Last Filed: 09/21/18 18:08> Discharge Date and Diagnosis - Secondary Discharge Diagnosis Chronic Problems Sigmoid diverticulitis (Chronic) Sepsis (Chronic) Hospital Course and Treatment Summary of Care Provided: This patient was seen in conjunction with Hui COLLINS. I have independently interviewed and examined the patient and reviewed pertinent history, examination findings, laboratory and plan of management. I have reviewed the note and agree with the documented findings with the few additional points. In brief, patient is admitted for abdominal pain, fever, tachycardia and leukocytosis consistent with sepsis secondary to acute on recurrent sigmoid diverticulitis; failed outpatient therapy as mentioned above. Discussed with the patient, his and [id number] present in the room regarding colonoscopy in 3-4 weeks and and possible sigmoid colectomy for recurrent diverticulitis. Patient was seen by Dr. Webb. The patient has follow-up for upper and lower endoscopy on October 09, 2018 in [place]. He was also seen by gastroenterology mid-level practitioner on August 11, 2018. Follow with Dr. Webb after upper and lower endoscopy. Discharge medication reconciliation done. Discharge follow-up instructions completed. Discharge process discussed with the patient. Total time spent, exact 35 minutes on discharge meds reconciliation, examination, review of imaging and blood test and discussion with the patient on follow-up instructions. I have discussed my assessment with Hui COLLINS and orders have been reviewed. [] Subjective: Seen and examined. Patient denies abdominal pain. Patient had good bowel movement. No fever or chills. Objective: General: Alert, Oriented x3, Cooperative HEENT: Atraumatic, PERRLA, EOMI, Normocephalic Neck: Supple, No JVD, Negative Carotid Bruits Lungs: Clear to auscultation, Normal air movement Cardiovascular: Regular rate, Regular Rhythm, Normal S1, Normal S2, No murmurs Abdomen: Bowel Sounds Present, Soft, Non-Distended, no tenderness. Tenderness resolved. No rebound tenderness, guarding or rigidity Extremities: No edema, Capillary Refill Less than 3 Seconds Skin: No rashes, No breakdown Musculoskeletal: No Tenderness to Palpation of Joints or Extremities Neurological: Cranial nerves II-XII grossly intact Psych/Mental Status: Normal Affect, Appropriate - Physical Exam Vital Signs Temp Pulse Resp BP Pulse Ox 98.8 F 90 18 143/85 H 99 09/20/18 14:20 09/20/18 14:20 09/20/18 14:20 09/20/18 14:20 09/20/18 14:20 Oxygen Delivery Method Room Air Weight: 185 lb 4.8 oz Body Mass Index (BMI) 27.3 Intake and Output for Last 24 Hours 09/19/18 09/20/18 09/21/18 23:59 23:59 23:59 Intake Total 1873 / 1873 958.5 / 958.5 Balance 1873 / 1873 958.5 / 958.5 Microbiology Past 72 Hours 09/20/18 11:00 Enteric Bacteriology - Final Stool 09/20/18 11:00 C. difficile DNA Amplification - Final Stool 09/20/18 11:00 Stool Lactoferrin - Final Stool Code Visit Inpatient E&M: 12505 Disch Hosp
--- NOTE | 2018-09-20 10:21 | PCM.PN.SRG ---
Subjective: passing flatus, liquid bowel movements, much improved abdominal pain - Physical Exam General: Alert, Oriented x3, Cooperative Lungs: Clear to auscultation, Normal air movement Cardiovascular: Regular rate, No murmurs Abdomen: Bowel Sounds Present, Soft, Tender - minimal left lower quadrant Vital Signs Temp Pulse Resp BP Pulse Ox 98.3 F 90 16 130/77 H 99 09/20/18 04:12 09/20/18 04:12 09/20/18 04:12 09/20/18 04:12 09/20/18 04:12 Oxygen Delivery Method Room Air Weight: 84.051 kg Body Mass Index (BMI) 27.3 Intake and Output for Last 24 Hours 09/18/18 09/19/18 09/20/18 23:59 23:59 23:59 Intake Total 1873 / 1873 958.5 / 958.5 Balance 1873 / 1873 958.5 / 958.5 Laboratory Tests Past 24 Hrs 09/20/18 06:36 WBC 12.3 H RBC 4.76 Hgb 13.2 Hct 39.7 L MCV 83.4 MCH 27.7 MCHC 33.2 RDW 12.9 RDW Differential 39.2 Plt Count 306 MPV 9.2 Medical Necessity - Tobacco Use Smoking Status: Never smoker Assessment/Plan significant colonic thickening-diverticulitis versus colitis? The patient is currently on Cipro and Flagyl IV. If he is tolerating liquids I'm comfortable with them maintaining on a liquid diet. Agree with watching the patient clinically. Interestingly, I don't see significant diverticulosis and the patient is relatively young. We will ask about any foreign travel or unusual foods lately that might cause a localized colitis is the etiology versus again diverticulitis. since he is having more liquid stools, will ask if we can obtain stool cultures prior to discharge. Comfortable with patient being discharged on Cipro and Flagyl. We'll have patient follow-up in my office in one week with plans to perform outpatient colonoscopy. the patient was seen by gastroenterology mid-level practitioners August 11, 2018. the consideration given his review of CT scans at that time was either diverticulitis versus colitis. There is current plans for upper and lower endoscopy on October 09, 2017 in [place]. we'll determine whether he should follow up with that appointment or plan for endoscopy locally
[2018-09-20] MEDS: Famotidine 20 MG Tablet PO (10:58)
[2018-09-20 10:59] VITALS: BP 135/75; PULSE 82; RESP 16; TEMP 37.3; O2SAT 96
--- NOTE | 2018-09-20 11:14 | NURSING ---
Sent very small amt of stool to lab to test for cdiff.
--- NOTE | 2018-09-20 13:44 | NURSING ---
This nurse is aware that CDiff is negative.
[2018-09-20 14:20] VITALS: BP 143/85; PULSE 90; RESP 18; TEMP 37.1; O2SAT 99
== END 2018-09-20 14:21 | disposition home or self-care (01) | DRG 872 ==
LOC: ED 16:47 → MS3 18:00
PROVIDERS: Nurse Practitioner Family; Admitting Provider Internal Medicine; Emergency Provider Emergency Medicine; Family Provider Internal Medicine; PCP Internal Medicine; Referring Provider Internal Medicine; Visit Provider Internal Medicine
DX: A41.9 Sepsis, unspecified organism (principal); K57.32 Diverticulitis of large intestine without perforation or abscess without bleeding; R00.0 Tachycardia, unspecified
CPT/HCPCS: 36415; 74176; 80048; 83605; 83630; 85025; 85027; 87493; 87506; 99282; J7030; J7050; A4216; J0295; J2405

== ENCOUNTER 2018-10-01 10:35 | Emergency (ER) | payer OTHER, MEDICAID, SELFPAY ==
[2018-09-18 18:24] VITALS: BMI 27.3
[2018-10-01 10:39] VITALS: BP 146/82; PULSE 91; RESP 12; TEMP 36.8; O2SAT 100; BMI 25.9
--- NOTE | 2018-10-01 10:54 | NURSING ---
PAGED DR CANO
--- NOTE | 2018-10-01 11:12 | NURSING ---
REPAGED DR CANO
[2018-10-01 11:19] LABS: Absolute Lymphocyte Count 1.06 X10^3/ul (0.83-4.51); Absolute Neutrophil Count 11.2 X10^3/uL (2.0-7.7); Basophil# 0.03 X10^3/uL; Basophil% 0.2 % (0-1); Eosinophil# 0.03 X10^3/uL; Eosinophils% 0.2 % (0-5); Hematocrit 41.6 % (40-54); Hemoglobin 13.7 g/dl (13.0-16.5); Lymphocyte # 1.06 X10^3/ul (4.0); Lymphocyte % 7.8 % (19-41); Mean Corp Hgb Conc 32.9 g/gl (32-36); Mean Corpuscular Hgb 27.5 pg (27.0-32.0); Mean Corpuscular Volume 83.4 fL (80-94); Mean Platelet Vol. 8.9 fl (6.2-12.0); Monocyte# 1.23 X10^3/uL; Neutrophil # 11.23 X10^3/uL (2.7-7.7); Neutrophil % 82.5 % (47-70); POSITIVE COUNT NO; POSITIVE DIFFERENTIAL NO; POSITIVE MORPHOLOGY NO; Platelet Count 480 K/mm3 (150-450); RBC Distribution Width CV 13.3 % (11.6-14.6); RBC Distribution Width SD 40.1 fl (35.1-43.9); Red Blood Count 4.99 M/mm3 (4.6-6.2); White Blood Count 13.6 K/mm3 (4.4-11.0)
[2018-10-01 11:33] LABS: ALB/GLOB Ratio 0.7 RATIO (0.9-2.4); AST(SGOT) 17 U/L (15-37); Alanine Aminotransfer ALT/SGPT 21 U/L (16-61); Albumin, Serum 3.4 g/dL (3.2-5.0); Alkaline Phosphatase 75 U/L (45-117); Anion Gap 8 (5-15); BUN 5 mg/dL (7-18); BUN/Creat Ratio 4.9 RATIO (10-20); Calcium,Total 9.2 mg/dL (8.5-10.1); Chloride 101 mmol/L (98-107); Creatinine, Serum 1.02 mg/dL (0.70-1.30); EST Glomerular Filtration Rate 93 mL/min (>60); Est Glom Filt Rate - Afr Amer 113 mL/min (>60); Estimated Creatinine Clearance 105.25 ml/min; Globulin 4.7 g/dL (2.2-4.2); Glucose 103 mg/dL (74-106); Lipase 86 U/L (73-393); Potassium 4.2 mmol/L (3.5-5.1); Protein, Total 8.1 g/dL (6.4-8.2); Sodium Level 138 mmol/L (136-145)
[2018-10-01] MEDS: 0.9% Normal Saline 1,000 ML 999 ML IV (11:41)
[2018-10-01 11:52] LABS: Bacteria 0 SEEN /hpf (None Seen); Mucous, Urine 0 SEEN /hpf (<or=2+); Red Blood Cells-Urine 0 SEEN /hpf (0-5)
[2018-10-01 11:54] LABS: Color, Urine Yellow (Yellow); Glucose, Dipstick Normal (Normal); Ketone-Dipstick 50 mg/dl (Negative); Leukocyte Esterase-Dipstick 25 /ul (Negative); Nitrite-Dipstick Negative (Negative); Occult Blood-Urine Negative /ul (Negative); Protein-Dipstick Negative (Negative); Urine Bilirubin Dipstick Negative (Negative); Urine Clarity Sl. Cloudy (Clear); Urine Urobilinogen Normal (Normal)
[2018-10-01 12:03] LABS: Squamous Epithelial Cells - UA 0-5 SEEN /hpf (0-5); White Blood Cells 0-5 SEEN /hpf (0-5)
--- NOTE | 2018-10-01 13:32 | NURSING ---
DR JENNYFER VELAZQUEZ
--- NOTE | 2018-10-01 13:33 | ED.VISSUMM ---
- ER Visit Summary Date of Service: 10/01/18 Chief Complaint: Abdominal pain History of Present Illness: The patient is a 28 M with lower abdominal pain that has been going on for weeks. He was previously diagnosed and treated for diverticulitis. He was seen a couple weeks ago. He was diagnosed with diverticulitis on CT and treated with Cipro and Flagyl. He was sent home and then came back the next day for worsening symptoms. He had a repeat CT which showed worsening diverticulitis. He was admitted for IV antibiotics. He subsequently went home and completed his antibiotics. He was on an additional round of antibiotics. His doctor got an outpatient CBC that showed a white count of 18,000. He was notified today that he had an elevated white count and came in for continued pain and mucus in his stool. Physical Examination: Afebrile and vital signs unremarkable. Heart regular. Lungs clear. Abdomen is tender in the left lower quadrant. No guarding or rebound. Skin appears normal. Test Results: White count 13.6 and platelets 480. CMP and lipase normal. Urinalysis unremarkable. Emergency Department Course and Treatment: I spoke with the patient's PCP. He was concerned about the persistent symptoms as well as the white count of 18,000. I also spoke with Dr. Varela. The patient has been seen by Dr. Webb and is planning to follow-up in the office tomorrow. I advised that his white count is much improved. He does have some abdominal pain, but no guarding or rebound. Vital signs are acceptable. I believe the patient is appropriate for outpatient follow-up. He has been on Cipro and Flagyl. Will cover with Augmentin. Patient has follow-up tomorrow. He will likely need endoscopy and is scheduled for colonoscopy and EGD on October 09. I am hesitant to order another CT based on his exam, vitals, and labs. He has had 3 in the past 6 months. I do not believe he needs inpatient care. Treatment Plan: As above Disposition: Discharge Impression: 1. Abdominal pain This note was generated with [employer] dictation software. It may contain incorrect words, spelling, and punctuation that were not noted in review of the chart prior to signing ED Disposition - Plan for ED Patient: Chief Complaint: Abd Pain Referrals: Abran Salas MD [Primary Care Provider] -
--- NOTE | 2018-10-01 13:36 | ED.DCSUM_ITS ---
- ER Visit Summary Date of Service: 10/01/18 Chief Complaint: Abdominal pain History of Present Illness: The patient is a 28 M with lower abdominal pain that has been going on for weeks. He was previously diagnosed and treated for diverticulitis. He was seen a couple weeks ago. He was diagnosed with dive rticulitis on CT and treated with Cipro and Flagyl. He was sent home and then came back the next day for worsening symptoms. He had a repeat CT which showed worsening diverticulitis. He was admitted for IV antibiotics. He subsequently went home and completed his antibiotics. He was on an additional round of antibiotics. His doctor got an outpatient CBC that showed a white count of 18,000. He was notified today that he had an elevated white count and came in for continued pain and mucus in his stool. Physical Examination: Afebrile and vital signs unremarkable. Heart regular. Lungs clear. Abdomen is tender in the left lower quadrant. No guarding or rebound. Skin appears normal. Test Results: White count 13.6 and platelets 480. CMP and lipase normal. Urinalysis unremarkable. Emergency Department Course and Treatment: I spoke with the patient's PCP. He was concerned about the persistent symptoms as well as the white count of 18,000. I also spoke with Dr. Varela. The patient has been seen by Dr. Webb and is planning to follow-up in the office tomorrow. I advised that his white count is much improved. He does have some abdominal pain, but no guarding or rebound. Vital signs are acceptable. I believe the patient is appropriate for outpatient follow-up. He has been on Cipro and Flagyl. Will cover with Augmentin. Patient has follow-up tomorrow. He will likely need endoscopy and is scheduled for colonoscopy and EGD on October 09. I am hesitant to order another CT based on his exam, vitals, and labs. He has had 3 in the past 6 months. I do not believe he needs inpatient care. Treatment Plan: As above Disposition: Discharge Impression: 1. Abdominal pain This note was generated with [employer] dictation software. It may contain incorrect words, spelling, and punctuation that were not noted in review of the chart prior to signing ED Disposition - Plan for ED Patient: Chief Complaint: Abd Pain Referrals: Abran Salas MD [Primary Care Provider] -
--- NOTE | 2018-10-01 13:36 | ED.DEP ---
ED Disposition - Plan for ED Patient: Chief Complaint: Abd Pain Instructions: ED Abdominal Pain Unkn Cause Prescriptions: Amox/Clavulanate Tablet [Augmentin Tablet] 875 mg PO Q12H 10 Days #20 tab Referrals: Abran Salas MD [Primary Care Provider] -
[2018-10-01 13:52] VITALS: BP 141/74; PULSE 68; RESP 17; TEMP 36.8
[2018-10-01] MEDS: Amox/Clavulanate 875 MG Tablet PO (13:52)
== END 2018-10-01 13:55 | disposition home or self-care (01) ==
PROVIDERS: Emergency Provider Emergency Medicine; Family Provider Internal Medicine; PCP Internal Medicine
DX: R10.9 Unspecified abdominal pain (principal); R19.7 Diarrhea, unspecified; Z87.19 Personal history of other diseases of the digestive system
CPT/HCPCS: 80053; 81001; 83690; 85025; 96360; 99284; J7030; A4216

== ENCOUNTER 2018-10-14 10:17 | Emergency (ER) | payer OTHER, MEDICAID, SELFPAY ==
[2018-10-14 10:17] VITALS: BP 151/81; PULSE 113; RESP 18; TEMP 36.6; O2SAT 100; BMI 25.0
[2018-10-14 10:38] VITALS: TEMP 37.4
--- NOTE | 2018-10-14 10:44 | CT_ITS ---
STUDY: CT ABDOMEN AND PELVIS WITH CONTRAST REASON FOR EXAM: Male, 28 years old. Acute abdominal and pelvic pain, fever RADIATION DOSAGE (If Supplied By Facility): CTDIvol = ( 9.61 ) mGy, DLP = ( 489.88 ) mGycm TECHNIQUE: Transaxial images were obtained from the dome of the diaphragm to the symphysis pubis with oral contrast. 100 ml of Isovue 300 contrast was administered. Sagittal and coronal images were reconstructed. Individualized dose optimization techniques were used for this CT. COMPARISON: 09/18/2018 FINDINGS: The visualized lung bases are unremarkable. The visualized portions of the heart are within normal limits. Normal liver. Normal gallbladder and extrahepatic biliary system. Normal spleen. Normal pancreas. Normal bilateral adrenal glands. Normal right kidney. Normal left kidney. Normal visualized stomach. Normal small intestine. The colon is fluid distended with suggests there may be an underlying diarrheal illness. There is persistent abnormal thickening of the sigmoid colon with perisigmoidal inflammation consistent with acute diverticulitis. No perforation or abscess is noted. There is little significant change in appearance of the sigmoid since the previous study. There is non-visualization of the appendix. Normal abdominal aorta. Normal inferior vena cava. Normal retroperitoneum. Normal urinary bladder. Normal abdominal wall. Normal osseous structures. CT/Abdomen/Pelvis WITH Contrast IMPRESSION: The sigmoid colon is again noted to be abnormally thickened with periappendiceal inflammation. Findings consistent with diverticulitis. No perforation, abscess, or significant interval change noted since the previous study. The remainder of the colon is fluid distended suggesting underlying diarrheal illness No suspicious solid organ abnormality Electronically Signed: Shaheen Cha MD at 12:46 EST , Service support ,
--- NOTE | 2018-10-14 10:44 | ED.VISSUMM ---
- ER Visit Summary Date of Service: 10/14/18 Chief Complaint: Abdominal pain History of Present Illness: The patient is a 28 M who presents for continued abdominal pain. Patient has diagnosed diverticulitis, had a colonoscopy last week to confirm it and that was not consistent with inflammatory bowel disease.. He is scheduled for a partial colectomy on October 30. Patient states since yesterday he has been having right lower quadrant pain that is stabbing and cramping. This is different from his normal pain. Pain is worse with movement and improved with remaining still. He has associated nausea and vomiting. Denies diarrhea or blood in his stool. Patient has not had a fever at home. He states he is not taking anything for pain or nausea at home and is not been prescribed anything. He is on Cipro and Flagyl currently. Physical Examination: Vital signs: afebrile, hemodynamically stable, no hypoxia on room air General: well nourished, well developed, in no distress Skin: warm, dry, no rash, no pallor HEENT: normocephalic and atraumatic; PERRL, EOMI, moist mucous membranes Cardiovascular: Tachycardic rate and rhythm without murmurs, no peripheral edema, 2+ pulses all distal extremities Respiratory: No increased work of breathing, lungs are clear to auscultation bilaterally, no rales, rhonchi or wheezing Abdominal: Abdomen is soft, tender in the right lower quadrant with mild rebound tenderness, with normoactive bowel sounds, no guarding, no masses MSK: Moves all extremities, no deformities, normal strength Neuro: Awake and alert, oriented ?4. No facial droop, sensation and motor function intact and symmetric Test Results: Abnormal Lab Results 10/14/18 10/14/18 10:51 10:51 WBC 13.3 H RBC 4.91 Hgb 13.4 Hct 40.6 MCV 82.7 MCH 27.3 MCHC 33.0 RDW 13.5 RDW Differential 40.1 Plt Count 412 MPV 9.0 Immature Gran % (Auto) 0.200 Neut % (Auto) 79.3 H Lymph % (Auto) 9.4 L [place] % (Auto) 10.6 H Eos % (Auto) 0.3 Baso % (Auto) 0.2 Absolute Neuts (auto) 10.5 H Absolute Lymphs (auto) 1.25 Total Counted Not Reportable Sodium 136 Potassium 3.8 Chloride 101 Carbon Dioxide 28.0 Anion Gap 7 BUN 5 L Creatinine 0.94 Estim Creat Clear Calc 114.20 Est GFR (MDRD) Af Amer 124 Est GFR (MDRD) Non-Af 103 BUN/Creatinine Ratio 5.3 L Glucose 106 Calcium 8.9 Total Bilirubin 0.40 AST 9 L ALT 14 L Alkaline Phosphatase 72 Total Protein 7.9 Albumin 3.2 Globulin 4.7 H Albumin/Globulin Ratio 0.7 L Clinical Impression(s) from Imaging Studies Abdomen/Pelvis CT 10/14/18 10:44 Diverticulitis with no significant changes since prior study Medications Given Discontinued Medications Sodium Chloride () 1,000 mls @ 1,000 mls/hr IV .Q1H ONE Stop: 10/14/18 11:42 Last Admin: 10/14/18 10:52 Dose: 1,000 mls/hr Morphine Sulfate () 4 mg IV X1 ONE Stop: 10/14/18 10:44 Last Admin: 10/14/18 10:52 Dose: 4 mg Ondansetron HCl (Zofran) 4 mg IV X1 ONE Stop: 10/14/18 10:44 Last Admin: 10/14/18 10:52 Dose: 4 mg Emergency Department Course and Treatment: Patient presents with known diverticulitis, and he has had several visits in this emergency department, with surgery and with his primary care doctor for the same complaints. Today he is complaining of worsening pain that is different from his typical pain. He is tachycardic on evaluation and has right lower quadrant tenderness with mild rebound. He has already had 3 CT abdomen and pelvis in the last 6 months, however given his new complaints and abdominal exam, an abdominal CT will be repeated evaluate for any abscess, perforation or alternative cause. Patient received morphine and Zofran for symptoms and IV fluids for hydration. Labs were remarkable for leukocytosis of 13.3, which is consistent with prior labs in improved from his visit a few times ago. Otherwise no lab abnormalities. CT of the abdomen and pelvis showed sigmoid diverticulitis without perforation or abscess. It was consistent with patient's prior imaging. On reevaluation patient was resting comfortably and had improvement in his pain. We discussed that he is going to have pain until he gets the surgery for his ongoing diverticulitis. He was given a prescription for Zofran for nausea at home and [place] for severe pain. Patient was encouraged to use [id number] pain medication for mild to moderate pain, as he has not been taking pain medication at home. Patient was strongly encouraged to keep his surgery appointment on October 30. Patient discharged home well-appearing, afebrile, normotensive and ambulating without difficulty. Treatment Plan: [] Disposition: [] Impression: Sigmoid diverticulitis This note was generated with [employer] dictation software. It may contain incorrect words, spelling, and punctuation that were not noted in review of the chart prior to signing ED Disposition - Plan for ED Patient: Disposition: Home or Assisted Living Chief Complaint: Abd Pain Instructions: ED Diverticulitis Prescriptions: Hydrocodone Bitart/Apap 5-325 [[place] 5MG-325MG] 1 tab PO Q6H PRN PRN 3 Days #15 tab PRN Reason: Pain Ondansetron [Zofran Odt] 4 mg PO Q8H PRN PRN #20 tab PRN Reason: Nausea Referrals: Richi Coello MD [STAFF PHYSICIAN] - Keep Vicente appointment Abran Salas MD [Primary Care Provider] - 3-5 Days if not improving Additional Instructions: Follow all the instructions you were given by your surgeon. Keep your appointment for surgery on October 30. Continue the antibiotics as you have been prescribed. You may use the Zofran for nausea and [place] for severe pain. Otherwise use [id number] pain medications for mild to moderate pain as you have been instructed by your doctors. If you have any worsening of your condition or any new concerning symptoms, please return immediately to the emergency department for another evaluation.
--- NOTE | 2018-10-14 10:48 | ED.DCSUM_ITS ---
- ER Visit Summary Date of Service: 10/14/18 Chief Complaint: Abdominal pain History of Present Illness: The patient is a 28 M who presents for continued abdominal pain. Patient has diagnosed diverticulitis, had a colonoscopy last week to confirm it and that was not consistent with inflammatory bowel disease.. He is scheduled for a partial colectomy on October 30. Patient states since yesterday he has been having right lower quadrant pain that is stabbing and cramping. This is different from his normal pain. Pain is worse with movement and improved with remaining still. He has associated nausea and vomiting. Denies diarrhea or blood in his stool. Patient has not had a fever at home. He states he is not taking anything for pain or nausea at home and is not been prescribed anything. He is on Cipro and Flagyl currently. Physical Examination: Vital signs: afebrile, hemodynamically stable, no hypoxia on room air General: well nourished, well developed, in no distress Skin: warm, dry, no rash, no pallor HEENT: normocephalic and atraumatic; PERRL, EOMI, moist mucous membranes Cardiovascular: Tachycardic rate and rhythm without murmurs, no peripheral edema, 2+ pulses all distal extremities Respiratory: No increased work of breathing, lungs are clear to auscultation bilaterally, no rales, rhonchi or wheezing Abdominal: Abdomen is soft, tender in the right lower quadrant with mild rebound tenderness, with normoactive bowel sounds, no guarding, no masses MSK: Moves all extremities, no deformities, normal strength Neuro: Awake and alert, oriented ?4. No facial droop, sensation and motor function intact and symmetric Test Results: Abnormal Lab Results 10/14/18 10/14/18 10:51 10:51 WBC 13.3 H RBC 4.91 Hgb 13.4 Hct 40.6 MCV 82.7 MCH 27.3 MCHC 33.0 RDW 13.5 RDW Differential 40.1 Plt Count 412 MPV 9.0 Immature Gran % (Auto) 0.200 Neut % (Auto) 79.3 H Lymph % (Auto) 9.4 L [place] % (Auto) 10.6 H Eos % (Auto) 0.3 Baso % (Auto) 0.2 Absolute Neuts (auto) 10.5 H Absolute Lymphs (auto) 1.25 Total Counted Not Reportable Sodium 136 Potassium 3.8 Chloride 101 Carbon Dioxide 28.0 Anion Gap 7 BUN 5 L Creatinine 0.94 Estim Creat Clear Calc 114.20 Est GFR (MDRD) Af Amer 124 Est GFR (MDRD) Non-Af 103 BUN/Creatinine Ratio 5.3 L Glucose 106 Calcium 8.9 Total Bilirubin 0.40 AST 9 L ALT 14 L Alkaline Phosphatase 72 Total Protein 7.9 Albumin 3.2 Globulin 4.7 H Albumin/Globulin Ratio 0.7 L Clinical Impression(s) from Imaging Studies Abdomen/Pelvis CT 10/14/18 10:44 Diverticulitis with no significant changes since prior study Medications Given Discontinued Medications Sodium Chloride () 1,000 mls @ 1,000 mls/hr IV .Q1H ONE Stop: 10/14/18 11:42 Last Admin: 10/14/18 10:52 Dose: 1,000 mls/hr Morphine Sulfate () 4 mg IV X1 ONE Stop: 10/14/18 10:44 Last Admin: 10/14/18 10:52 Dose: 4 mg Ondansetron HCl (Zofran) 4 mg IV X1 ONE Stop: 10/14/18 10:44 Last Admin: 10/14/18 10:52 Dose: 4 mg Emergency Department Course and Treatment: Patient presents with known diverticulitis, and he has had several visits in this emergency department, with surgery and with his primary care doctor for the same complaints. Today he is complaining of worsening pain that is different from his typical pain. He is tachycardic on evaluation and has right lower quadrant tenderness with mild rebound. He has already had 3 CT abdomen and pelvis in the last 6 months, however given his new complaints and abdominal exam, an abdominal CT will be repeated evaluate for any abscess, perforation or alternative cause. Patient received morphine and Zofran for symptoms and IV fluids for hydration. Labs were remarkable for leukocytosis of 13.3, which is consistent with prior labs in improved from his visit a few times ago. Otherwise no lab abnormalities. CT of the abdomen and pelvis showed sigmoid diverticulitis without perforation or abscess. It was consistent with patient's prior imaging. On reevaluation patient was resting comfortably and had improvement in his pain. We discussed that he is going to have pain until he gets the surgery for his ongoing diverticulitis. He was given a prescription for Zofran for nausea at home and [place] for severe pain. Patient was encouraged to use [id number] pain medication for mild to moderate pain, as he has not been taking pain medication at home. Patient was strongly encouraged to keep his surgery appointment on October 30. Patient discharged home well-appearing, afebrile, normotensive and ambulating without difficulty. Treatment Plan: [] Disposition: [] Impression: Sigmoid diverticulitis This note was generated with castaclip dictation software. It may contain incorrect words, spelling, and punctuation that were not noted in review of the chart prior to signing ED Disposition - Plan for ED Patient: Disposition: Home or Assisted Living Chief Complaint: Abd Pain Instructions: ED Diverticulitis Prescriptions: Hydrocodone Bitart/Apap 5-325 [[place] 5MG-325MG] 1 tab PO Q6H PRN PRN 3 Days #15 tab PRN Reason: Pain Ondansetron [Zofran Odt] 4 mg PO Q8H PRN PRN #20 tab PRN Reason: Nausea Referrals: Richi Coello MD [STAFF PHYSICIAN] - Keep [facility] appointment Abran Salas MD [Primary Care Provider] - 3-5 Days if not improving Additional Instructions: Follow all the instructions you were given by your surgeon. Keep your appointment for surgery on October 30. Continue the antibiotics as you have been prescribed. You may use the Zofran for nausea and [place] for severe pain. Otherwise use [id number] pain medications for mild to moderate pain as you have been instructed by your doctors. If you have any worsening of your condition or any new concerning symptoms, please return immediately to the emergency department for another evaluation.
[2018-10-14] MEDS: Ondansetron 4 MG/2 ML Vial IV (10:52)
[2018-10-14] MEDS: 0.9% Normal Saline 1,000 ML 1000 ML IV (10:52)
[2018-10-14] MEDS: Morphine 4 MG/ML Syringe IV (10:52)
[2018-10-14 10:57] LABS: Absolute Lymphocyte Count 1.25 X10^3/ul (0.83-4.51); Absolute Neutrophil Count 10.5 X10^3/uL (2.0-7.7); Basophil# 0.03 X10^3/uL; Basophil% 0.2 % (0-1); Eosinophil# 0.04 X10^3/uL; Eosinophils% 0.3 % (0-5); Hematocrit 40.6 % (40-54); Hemoglobin 13.4 g/dl (13.0-16.5); Lymphocyte # 1.25 X10^3/ul (4.0); Lymphocyte % 9.4 % (19-41); Mean Corpuscular Hgb 27.3 pg (27.0-32.0); Mean Corpuscular Volume 82.7 fL (80-94); Monocyte% 10.6 % (0-10); Neutrophil # 10.51 X10^3/uL (2.7-7.7); Neutrophil % 79.3 % (47-70); Platelet Count 412 K/mm3 (150-450); RBC Distribution Width CV 13.5 % (11.6-14.6); RBC Distribution Width SD 40.1 fl (35.1-43.9); Red Blood Count 4.91 M/mm3 (4.6-6.2); White Blood Count 13.3 K/mm3 (4.4-11.0)
[2018-10-14 10:58] LABS: POSITIVE COUNT NO; POSITIVE DIFFERENTIAL NO; POSITIVE MORPHOLOGY NO
[2018-10-14 11:13] LABS: ALB/GLOB Ratio 0.7 RATIO (0.9-2.4); AST(SGOT) 9 U/L (15-37); Alanine Aminotransfer ALT/SGPT 14 U/L (16-61); Albumin, Serum 3.2 g/dL (3.2-5.0); Alkaline Phosphatase 72 U/L (45-117); Anion Gap 7 (5-15); BUN 5 mg/dL (7-18); BUN/Creat Ratio 5.3 RATIO (10-20); Calcium,Total 8.9 mg/dL (8.5-10.1); Chloride 101 mmol/L (98-107); Creatinine, Serum 0.94 mg/dL (0.70-1.30); EST Glomerular Filtration Rate 103 mL/min (>60); Est Glom Filt Rate - Afr Amer 124 mL/min (>60); Globulin 4.7 g/dL (2.2-4.2); Glucose 106 mg/dL (74-106); Potassium 3.8 mmol/L (3.5-5.1); Protein, Total 7.9 g/dL (6.4-8.2); Sodium Level 136 mmol/L (136-145)
--- NOTE | 2018-10-14 13:16 | DCINST.ED_ITS ---
ED Disposition - Plan for ED Patient: Disposition: Home or Assisted Living Chief Complaint: Abd Pain Instructions: ED Diverticulitis Prescriptions: Hydrocodone Bitart/Apap 5-325 [[place] 5MG-325MG] 1 tab PO Q6H PRN PRN 3 Days #15 tab PRN Reason: Pain Ondansetron [Zofran Odt] 4 mg PO Q8H PRN PRN #20 tab PRN Reason: Nausea Referrals: Abran Salas MD [Primary Care Provider] - 3-5 Days if not improving Richi Coello MD [STAFF PHYSICIAN] - Keep [facility] appointment Additional Instructions: Follow all the instructions you were given by your surgeon. Keep your appointment for surgery on October 30. Continue the antibiotics as you have been prescribed. You may use the Zofran for nausea and [place] for severe pain. Otherwise use [id number] pain medications for mild to moderate pain as you have been instructed by your doctors. If you have any worsening of your condition or any new concerning symptoms, please return immediately to the emergency department for another evaluation.
[2018-10-14 13:31] VITALS: BP 112/63; PULSE 79; RESP 16; O2SAT 99
== END 2018-10-14 13:37 | disposition home or self-care (01) ==
PROVIDERS: Emergency Provider Emergency Medicine; Family Provider Internal Medicine; PCP Internal Medicine
DX: K57.32 Diverticulitis of large intestine without perforation or abscess without bleeding (principal)
CPT/HCPCS: 74177; 80053; 85025; 96361; 96374; 96375; 99283; J7030; Q9967; A4216; J2405